=== PATIENT | female | born 1950 | race Caucasian/White ===

== ENCOUNTER 2017-06-28 15:57 | Outpatient (RCR) | payer MEDICARE, OTHER, SELFPAY ==
[2017-06-17 15:01] LABS: Prothrombin Time Fingerstick 42.3 SEC (11.9-14.4)
[2017-06-17 16:53] LABS: International Normalized Ratio 3.1; Prothrombin Time (Protime)PT. 30.5 SECONDS (11.7-14.9)
[2017-06-28 16:11] LABS: Prothrombin Time Fingerstick 26.1 SEC (11.9-14.4)
== END 2017-06-28 16:15 | disposition home or self-care (01) ==
LOC: MTLAB 15:57
PROVIDERS: Family Provider Family Medicine; PCP Family Medicine; Visit Provider Internal Medicine Cardiovascular Disease
DX: I48.0 Paroxysmal atrial fibrillation (principal)
CPT/HCPCS: 36416; 85610

== ENCOUNTER 2017-07-29 15:01 | Outpatient (RCR) | payer MEDICARE, OTHER, SELFPAY ==
[2017-07-29 15:21] LABS: Prothrombin Time Fingerstick 29.2 SEC (11.9-14.4)
== END 2017-07-29 16:00 | disposition home or self-care (01) ==
LOC: MTLAB 15:01
PROVIDERS: Family Provider Family Medicine; PCP Family Medicine; Visit Provider Internal Medicine Cardiovascular Disease
DX: I48.0 Paroxysmal atrial fibrillation (principal)
CPT/HCPCS: 36416; 85610

== ENCOUNTER 2017-09-02 14:44 | Outpatient (RCR) | payer MEDICARE, OTHER, SELFPAY ==
[2017-09-02 15:00] LABS: Prothrombin Time Fingerstick 29.1 SEC (11.9-14.4)
== END 2017-09-02 15:00 | disposition home or self-care (01) ==
LOC: MTLAB 14:44
PROVIDERS: Family Provider Family Medicine; PCP Family Medicine; Visit Provider Internal Medicine Cardiovascular Disease
DX: I48.0 Paroxysmal atrial fibrillation (principal); Z79.01 Long term (current) use of anticoagulants
CPT/HCPCS: 36416; 85610

== ENCOUNTER → 2017-09-16 08:01 | Outpatient (CLI) | payer MEDICARE, OTHER, SELFPAY ==
[2017-09-16 11:10] LABS: AST(SGOT) 24 U/L (15-37); Alanine Aminotransfer ALT/SGPT 23 U/L (13-56); Albumin, Serum 3.3 g/dL (3.2-5.0); Alkaline Phosphatase 55 U/L (45-117); Anion Gap 8 (5-15); BUN 24 mg/dL (7-18); BUN/Creat Ratio 25.5 RATIO (10-20); Bilirubin, Direct 0.09 mg/dL (0.00-0.30); Calcium,Total 8.6 mg/dL (8.5-10.1); Chloride 102 mmol/L (98-107); Cholesterol 116 mg/dL (200); Creatinine, Serum 0.94 mg/dL (0.55-1.02); EST Glomerular Filtration Rate 63 mL/min (>60); Est Glom Filt Rate - Afr Amer 76 mL/min (>60); Globulin 3.5 g/dL (2.2-4.2); Glucose 113 mg/dL (74-106); High Density Lipoprotein 59 mg/dL; Potassium 4.1 mmol/L (3.5-5.1); Protein, Total 6.8 g/dL (6.4-8.2); Sodium Level 139 mmol/L (136-145); Triglycerides 112 mg/dL; Very Low Density Lipoprotein 22 mg/dL (5-40)
== END ==
PROVIDERS: Family Provider Family Medicine; PCP Family Medicine; Visit Provider Internal Medicine Cardiovascular Disease
DX: E78.5 Hyperlipidemia, unspecified (principal); E11.9 Type 2 diabetes mellitus without complications; Z79.899 Other long term (current) drug therapy
CPT/HCPCS: 36415; 80048; 80061; 80076; 83036

== ENCOUNTER 2017-10-20 10:59 | Emergency (ER) | payer MEDICARE, OTHER, SELFPAY ==
[2017-10-20 11:00] VITALS: BP 150/98; PULSE 72; RESP 16; TEMP 36.6; O2SAT 99; BMI 28.3
--- NOTE | 2017-10-20 11:16 | VDLE_ITS ---
Reason For Study: LEG SWELLING RIGHT LEFT GSV is normal. GSV is normal. CFV is compressible, spontaneous, phasic, CFV is compressible, spontaneous, phasic, competent and demonstrates normal competent, and demonstrates normal augmentation. augmentation. FV is compressible, spontaneous, phasic, FV is compressible, spontaneous, phasic, competent and demonstrates normal competent and demonstrates normal augmentation. augmentation. POP V is compressible, spontaneous, phasic, POP V is compressible, spontaneous, phasic, competent and demonstrates normal competent and demonstrates normal augmentation. augmentation. T/P Trunk is compressible. T/P Trunk is compressible. PTV is compressible. PTV is compressible. RT PerV is compressible. LT PerV is compressible. Procedure Exam performed portable in ED. A preliminary report was called and/or faxed to Dr. Live. Interpretation Summary Deep veins of the lower extremities are bilaterally patent and compressible segmentally. There is no evidence of deep vein thrombosis on either side. Valvular competence appears intact within the proximal deep venous systems bilaterally. The greater saphenous veins appear bilaterally patent and compressible segmentally. Ordering Physician: Marimar Live Referring Physician: Will Montanez Performed By: Shelbie Robb RVT
--- NOTE | 2017-10-20 11:26 | ED.VISSUMM ---
- ER Visit Summary Date of Service: 10/20/17 Chief Complaint: [] Left lower extremity redness concern for DVT by physicians History of Present Illness: The patient is a 66 F [] and had what she describes as a cancerous lesion resected from the anterior liz region left lower extremity recently, she was followed up by her manager business management today the area was slightly red and the manager business management sent the patient to the emergency department T piece scan for DVT. The patient reports no fever no cough no trauma no warmth she is not quite sure why the redness is they are it has been there for a few days she has no history of cellulitis infection MRSA she is otherwise feeling fine, she has no history of again any symptoms of any kind her review of systems are all entirely negative and she has not had any history of DVT Patient is supposed to return directly back to the manager business management office today after the duplex scan is done for further therapy Physical Examination: [] Her vitals are within normal range head neck chest unremarkable the lungs are clear heart tones are normal abdomen soft the left liz region there is a circular dot that represents the resected area the entire left lower extremity is nontender there is some slight redness around this circular dot again is no warmth no signs of obvious cellulitis to dorsi and plantar flexion the foot is normal strong dorsalis pedis pulse foot toes all negative Test Results: [] Emergency Department Course and Treatment: [] duplex scan is obtained is unremarkable when results of her duplex scan and she will follow-up with her manager business management today as scheduled above patient's comfort with this plan Treatment Plan: [] Disposition: [] Home stable Impression: [] Redness to left anterior liz 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 It may contain incorrect words, spelling, and punctuation that were not noted in review of the chart prior to signing ED Disposition - Plan for ED Patient: Chief Complaint: Lower Extremity Injury Referrals: Jose Doyle MD [Primary Care Provider] -
--- NOTE | 2017-10-20 11:29 | ED.DCSUM_ITS ---
- ER Visit Summary Date of Service: 10/20/17 Chief Complaint: [] Left lower extremity redness concern for DVT by physicians History of Present Illness: The patient is a 66 F [] and had what she describes as a cancerous lesion resected from the anterior liz region left lower extremity recently, she was followed up by her informatics coordinator today the area was slightly red and the informatics coordinator sent the patient to the emergency department T piece scan for DVT. The patient reports no fever no cough no trauma no warmth she is not quite sure why the redness is they are it has been there for a few days she has no history of cellulitis infection MRSA she is otherwise feeling fine, she has no history of again any symptoms of any kind her review of systems are all entirely negative and she has not had any history of DVT Patient is supposed to return directly back to the informatics coordinator office today after the duplex scan is done for further therapy Physical Examination: [] Her vitals are within normal range head neck chest unremarkable the lungs are clear heart tones are normal abdomen soft the left liz region there is a circular dot that represents the resected area the entire left lower extremity is nontender there is some slight redness around this circular dot again is no warmth no signs of obvious cellulitis to dorsi and plantar flexion the foot is normal strong dorsalis pedis pulse foot toes all negative Test Results: [] Emergency Department Course and Treatment: [] duplex scan is obtained is unremarkable when results of her duplex scan and she will follow-up with her informatics coordinator today as scheduled above patient's comfort with this plan Treatment Plan: [] Disposition: [] Home stable Impression: [] Redness to left anterior liz status post biopsy/resection squamous cell carcinoma by patient history This note was generated with [employer] dictation software. It may contain incorrect words, spelling, and punctuation that were not noted in review of the chart prior to signing ED Disposition - Plan for ED Patient: Chief Complaint: Lower Extremity Injury Referrals: Jose Doyle MD [Primary Care Provider] -
--- NOTE | 2017-10-20 11:30 | DCINST.ED_ITS ---
ED Disposition - Plan for ED Patient: Chief Complaint: Lower Extremity Injury Instructions: ED Contusion Lower Ext Referrals: Jose Doyle MD [Primary Care Provider] - Additional Instructions: Follow-up today as instructed with her hand wrapper operator for further treatment options
== END 2017-10-20 12:50 | disposition home or self-care (01) ==
LOC: ED 12:23
PROVIDERS: Emergency Provider Emergency Medicine; Family Provider Family Medicine; PCP Family Medicine
DX: S80.12XA Contusion of left lower leg, initial encounter (principal); X58.XXXA Exposure to other specified factors, initial encounter; Y93.89 Activity, other specified; Y92.9 Unspecified place or not applicable; Y99.9 Unspecified external cause status; C44.729 Squamous cell carcinoma of skin of left lower limb, including hip
CPT/HCPCS: 93970; 99283

== ENCOUNTER 2017-10-27 11:20 | Outpatient (RCR) | payer MEDICARE, OTHER, SELFPAY ==
[2017-10-14 16:01] LABS: Prothrombin Time Fingerstick 38.4 SEC (11.9-14.4)
[2017-10-21 16:05] LABS: Prothrombin Time Fingerstick 46.1 SEC (11.9-14.4)
[2017-10-21 17:40] LABS: International Normalized Ratio 3.1; Prothrombin Time (Protime)PT. 32.3 SECONDS (11.7-14.9)
[2017-10-27 11:36] LABS: Prothrombin Time Fingerstick 25.1 SEC (11.9-14.4)
== END 2017-10-27 12:00 | disposition home or self-care (01) ==
LOC: MTLAB 11:20
PROVIDERS: Family Provider Family Medicine; PCP Family Medicine; Visit Provider Internal Medicine Cardiovascular Disease
DX: I48.0 Paroxysmal atrial fibrillation (principal)
CPT/HCPCS: 36416; 85610

== ENCOUNTER 2017-11-17 10:07 | Outpatient (RCR) | payer MEDICARE, OTHER, SELFPAY ==
--- NOTE | 2017-11-17 10:07 | DT_ITS ---
This patient was seen during an EMR downtime November 14, 2017 - November 21, 2017. This patient may have a combination of paper and electronic documentation or all paper documentation. All documentation is viewable within the e-chart portion of [facility] for each patient visit.
[2017-11-21 10:40] LABS: Prothrombin Time Fingerstick 32.7 SEC (11.9-14.4)
== END 2017-11-17 11:00 | disposition home or self-care (01) ==
LOC: MTLAB 10:07
PROVIDERS: Family Provider Family Medicine; PCP Family Medicine; Visit Provider Internal Medicine Cardiovascular Disease
DX: I48.0 Paroxysmal atrial fibrillation (principal)
CPT/HCPCS: 36416; 85610

== ENCOUNTER 2018-01-03 09:32 | Outpatient (RCR) | payer MEDICARE, OTHER, SELFPAY ==
[2017-12-15 14:16] LABS: Prothrombin Time Fingerstick 16.6 SEC (11.9-14.4)
[2017-12-22 17:00] LABS: Prothrombin Time Fingerstick 38.9 SEC (11.9-14.4)
[2018-01-03 09:45] LABS: Prothrombin Time Fingerstick 29.4 SEC (11.9-14.4)
== END 2018-01-03 11:00 ==
LOC: MTLAB 09:32
PROVIDERS: Family Provider Family Medicine; PCP Family Medicine; Visit Provider Internal Medicine Cardiovascular Disease
DX: I48.0 Paroxysmal atrial fibrillation (principal)
CPT/HCPCS: 36416; 85610

== ENCOUNTER 2018-01-24 16:17 | Outpatient (RCR) | payer MEDICARE, OTHER, SELFPAY ==
[2018-01-24 16:25] LABS: Prothrombin Time Fingerstick 33.9 SEC (11.9-14.4)
== END 2018-01-24 18:00 | disposition home or self-care (01) ==
LOC: MTLAB 16:17
PROVIDERS: Family Provider Family Medicine; PCP Family Medicine; Visit Provider Internal Medicine Cardiovascular Disease
DX: I48.0 Paroxysmal atrial fibrillation (principal)
CPT/HCPCS: 36416; 85610

== ENCOUNTER 2018-02-23 11:49 | Outpatient (RCR) | payer MEDICARE, OTHER, SELFPAY ==
[2018-02-23 12:10] LABS: Prothrombin Time Fingerstick 27.4 SEC (11.9-14.4)
== END 2018-02-23 13:00 | disposition home or self-care (01) ==
LOC: MTLAB 11:49
PROVIDERS: Family Provider Family Medicine; PCP Family Medicine; Visit Provider Internal Medicine Cardiovascular Disease
DX: I48.0 Paroxysmal atrial fibrillation (principal)
CPT/HCPCS: 36416; 85610

== ENCOUNTER → 2018-03-16 07:39 | Outpatient (CLI) | payer MEDICARE, OTHER, SELFPAY ==
[2018-03-16 10:27] LABS: Anion Gap 7 (5-15); BUN 20 mg/dL (7-18); Calcium,Total 8.9 mg/dL (8.5-10.1); Chloride 102 mmol/L (98-107); Creatinine, Serum 0.95 mg/dL (0.55-1.02); EST Glomerular Filtration Rate 62 mL/min (>60); Est Glom Filt Rate - Afr Amer 75 mL/min (>60); Glucose 123 mg/dL (74-106); Hemoglobin A1c 6.7 % (4.2-6.3); Potassium 4.1 mmol/L (3.5-5.1); Sodium Level 138 mmol/L (136-145)
[2018-03-16 10:29] LABS: AST(SGOT) 22 U/L (15-37); Alanine Aminotransfer ALT/SGPT 22 U/L (13-56); Albumin, Serum 3.3 g/dL (3.2-5.0); Alkaline Phosphatase 59 U/L (45-117); Bilirubin, Direct 0.11 mg/dL (0.00-0.30); Cholesterol 106 mg/dL (200); Globulin 3.6 g/dL (2.2-4.2); High Density Lipoprotein 55 mg/dL; Protein, Total 6.9 g/dL (6.4-8.2); Triglycerides 112 mg/dL; Very Low Density Lipoprotein 22 mg/dL (5-40)
== END ==
PROVIDERS: Nurse Practitioner Family; Family Provider Family Medicine; PCP Family Medicine; Referring Provider Family Medicine; Visit Provider Family Medicine
DX: I10 Essential (primary) hypertension (principal); E11.9 Type 2 diabetes mellitus without complications; E78.5 Hyperlipidemia, unspecified
CPT/HCPCS: 36415; 80048; 80061; 80076; 83036

== ENCOUNTER 2018-03-23 15:58 | Outpatient (RCR) | payer MEDICARE, OTHER, SELFPAY ==
[2018-03-23 16:11] LABS: Prothrombin Time Fingerstick 33.2 SEC (11.9-14.4)
== END 2018-03-23 17:00 | disposition home or self-care (01) ==
LOC: MTLAB 15:58
PROVIDERS: Family Provider Family Medicine; PCP Family Medicine; Referring Provider Internal Medicine Cardiovascular Disease; Visit Provider Internal Medicine Cardiovascular Disease
DX: I48.0 Paroxysmal atrial fibrillation (principal)
CPT/HCPCS: 36416; 85610

== ENCOUNTER 2018-04-24 16:45 | Outpatient (RCR) | payer MEDICARE, OTHER, SELFPAY | END 2018-04-24 17:00 | disposition home or self-care (01) | LOC: MTLAB 16:45 | PROVIDERS: Family Provider Family Medicine; PCP Family Medicine; Referring Provider Internal Medicine Cardiovascular Disease; Visit Provider Internal Medicine Cardiovascular Disease | DX: I48.0 Paroxysmal atrial fibrillation (principal); I48.91 Unspecified atrial fibrillation; Z79.01 Long term (current) use of anticoagulants | CPT/HCPCS: 36416; 85610 ==

== ENCOUNTER → 2018-05-15 14:51 | Outpatient (CLI) | payer MEDICARE, OTHER, SELFPAY ==
[2018-05-02 10:14] VITALS: BMI 27.8
--- NOTE | 2018-05-15 14:53 | ECHOD_ITS ---
Reason For Study: Afib/Flutter Procedure This was a 2D Doppler, Color Flow transthoracic echocardiogram. Exam performed in department. Left Ventricle Normal LV size. Left ventricular systolic function is normal. The estimated ejection fraction is 60 %. Transmitral diastolic flow velocities suggest severe (stage 3) diastolic dysfunction. No regional wall motion abnormalities noted. Right Ventricle Normal RV size. ICD or pacer leads identified within the right ventricle. Normal systolic function. Atria The left atrium is mildly enlarged. Normal right atrium. Mitral Valve Normal mitral valve. Mild (1+) eccentric mitral valve insufficiency. Tricuspid Valve Normal tricuspid valve. Mild (1+) tricuspid valve insufficiency. Pulmonary artery systolic pressure is 45 mmHg. Aortic Valve Normal aortic valve. Trisinus/trileaflet aortic valve. Pulmonic Valve Normal pulmonic valve. Great Vessels Normal aortic root. The pulmonary artery is normal size. Normal inferior vena cava. Pericardium/Pleural No pericardial effusion. MMode/2D Measurements & Calculations LVIDd: 4.7 cm IVSd: 1.1 cm Ao root diam: 3.5 cm LVIDs: 2.7 cm LVPWd: 0.81 cm LA dimension: 3.4 cm RVDd: 3.3 cm FS: 42.3 % LAV(MOD-bp): 61.8 ml LVAd ap4: 20.4 cm2 SV(MOD-sp4): 31.5 ml LAV(MOD-bp) Indexed: 34.5 ml/m2 EDV(MOD-sp4): 54.1 ml LAV(MOD-sp2): 55.2 ml EDV(sp4-el): 56.1 ml LAV(MOD-sp4): 64.9 ml LVAs ap4: 12.0 cm2 ESV(MOD-sp4): 22.6 ml ESV(sp4-el): 22.7 ml EF(MOD-sp4): 58.3 % EF(sp4-el): 59.5 % SV(sp4-el): 33.4 ml LA A4 area: 22.1 cm2 RA A4 area: 14.7 cm2 Time Measurements MV dec time: 0.29 sec Doppler Measurements & Calculations MV E max gregory: 99.8 cm/sec Lat Peak E' Gregory: 6.7 cm/sec MV V2 max: 111.6 cm/sec MV A max gregory: 35.6 cm/sec E/E' lat: 14.9 MV max P.0 mmHg MV E/A: 2.8 MV V2 mean: 64.3 cm/sec MV mean P.0 mmHg MV V2 VTI: 32.8 cm Ao V2 max: 116.5 cm/sec LV V1 max: 84.3 cm/sec MR max gregory: 512.5 cm/sec Ao max P.4 mmHg LV V1 max P.8 mmHg MR max P.1 mmHg PA V2 max: 68.7 cm/sec TR max gregory: 320.3 cm/sec TR max P.0 mmHg Interpretation Summary Normal LV size. Left ventricular systolic function is normal. The estimated ejection fraction is 60 %. Transmitral diastolic flow velocities suggest severe (stage 3) diastolic dysfunction Mild (1+) tricuspid valve insufficiency. Ordering Physician: Will Montanez Referring Physician: Will Montanez Performed By: Malcolm Guillen RCS
== END ==
PROVIDERS: Family Provider Family Medicine; PCP Family Medicine; Referring Provider Internal Medicine Cardiovascular Disease; Visit Provider Internal Medicine Cardiovascular Disease
DX: I07.1 Rheumatic tricuspid insufficiency (principal); I43 Cardiomyopathy in diseases classified elsewhere
CPT/HCPCS: 93306

== ENCOUNTER 2018-06-09 13:43 | Outpatient (RCR) | payer MEDICARE, OTHER, SELFPAY ==
[2018-05-02 10:14] VITALS: BMI 27.8
[2018-05-25 13:56] LABS: Prothrombin Time Fingerstick 37.8 SEC (11.9-14.4)
[2018-06-09 16:44] LABS: International Normalized Ratio 2.6
--- OUTSIDE RECORDS SUMMARY | 2018-07-11 09:48 | XMS RPT_ITS ---
:1950 Author Organization OHIP Support Name Relationship Address Phone [employer] Unavailable [address] + [place] [address] DAILY, M MADALYN Unavailable [address] + [place] [address] [employer] Unavailable [address] + [place] [address] DAILY, M MADALYN Unavailable [address] + [place] [address] [employer] Unavailable [address] + [place] [address] DAILY, M MADALYN Unavailable [address] + [place] [address] [employer] [facility] Unavailable [address] + [place] [address] DAILY, M MADALYN Unavailable [address] + [place] [address] [employer] Unavailable [address] + [place] [address] DAILY, M MADALYN Unavailable [address] + [place] [address] [facility] Unavailable [address] + [place] [address] DAILY, M MADALYN Unavailable [address] + [place] [address] [employer] Unavailable [address] + [place] [address] DAILY, M MADALYN Unavailable [address] + [place] [address] [employer] Unavailable [address] + [facility] [address] DAILY, M MADALYN Unavailable [address] + [place] [address] [employer] Unavailable [address] + [place] [address] DAILY, M MADALYN Unavailable [address] + [place] [address] [facility] Unavailable [address] + [place] [address] DAILY, M MADALYN Unavailable [address] + [place] [address] [employer] Unavailable [address] + [place] [address] DAILY, M MADALYN Unavailable [address] + [place] [address] [employer] [facility] Unavailable [address] + [place] [address] DAILY, M MADALYN Unavailable [address] + [place] [address] [employer] [facility] Unavailable [address] + [place] [address] DAILY, M MADALYN Unavailable [address] + [place] [address] [facility] [facility] Unavailable [address] + [place] [address] DAILY, M MADALYN Unavailable [address] + [place] [address] [facility] Unavailable [address] + [place] [address] DAILY, M MADALYN Unavailable [address] + [place] [address] [facility] [facility] Unavailable [address] + [place] [address] DAILY, M MADALYN Unavailable [address] + [place] [address] [facility] [facility] Unavailable [address] + [place] [address] DAILY, M MADALYN Unavailable [address] + [place] [address] [facility] [facility] Unavailable [address] + [place] [address] DAILY, M MADALYN Unavailable [address] + [place] [address] [facility] [facility] Unavailable [address] + [place] [address] DAILY, M MADALYN Unavailable [address] + [place] [address] [facility] [facility] Unavailable [address] + [place] [address] DAILY, M MADALYN Unavailable [address] + [place] [address] [facility] [facility] Unavailable [address] + [place] [address] DAILY, M MADALYN Unavailable [address] + [place] [address] [facility] [facility] Unavailable [address] + [place] [address] DAILY, M Unavailable [address] + [place] [address] [facility] [facility] Unavailable [address] + [place] [address] DAILY, M MADALYN Unavailable [address] + [place] [address] Care Team Providers Name Role Phone PAULA FRAGA Referring Unavailable PAULA FRAGA Attending Unavailable Gale Nascimento Attending Unavailable Jose Guzman Referring Unavailable Will Montanez Attending Unavailable Will Montanez Referring Unavailable Jose Guzman Primary Care Unavailable Gale Nascimento Attending Unavailable Jose Guzman Referring Unavailable Yaonna Welch Attending Unavailable Guzman, Jose Referring Unavailable Guzman, Jose Primary Care Unavailable Tarik, [place] Attending Unavailable Guzman, Jose Primary Care Unavailable [place], [place] Attending Unavailable Guzman, Jose Referring Unavailable Guzman, Jose Primary Care Unavailable [place], [place] Attending Unavailable Guzman, Joes Primary Care Unavailable Tarik, Will Referring Unavailable Tarik, Will Attending Unavailable Tarik, Will Referring Unavailable Guzman, Jose Primary Care Unavailable [place], [place] Attending Unavailable Tarik, Will Referring Unavailable Guzman, Jose Primary Care Unavailable Guzman, Jose Primary Care Unavailable Dulce Live Attending Unavailable Tar[place], [place] Attending Unavailable Tarik, [place] Referring Unavailable Guzman, Jose Primary Care Unavailable AzamGale giraldo Attending Unavailable Gumzan, Jose Referring Unavailable Guzman, Jose Primary Care Unavailable Tarik, Will Attending Unavailable Tarik, Will Referring Unavailable Guzman, Jose Primary Care Unavailable Tarik, Will Attending Unavailable Tarik, Will Referring Unavailable Guzman, Jose Primary Care Unavailable Tarik, [place] Attending Unavailable Tarik, [place] Referring Unavailable Guzman, Jose Primary Care Unavailable AzamGale giraldo Attending Unavailable Guzman, Jose Referring Unavailable Tarik, [place] Attending Unavailable Tarik, [place] Referring Unavailable Guzman, Jose Primary Care Unavailable Guzman, Jose Attending Unavailable Guzman, Jose Referring Unavailable Guzman, Jose Primary Care Unavailable Roof, Jose H Consulting Unavailable Tarik, [place] Attending Unavailable Tarik, [place] Referring Unavailable Guzman, Jose Primary Care Unavailable Tarik, Will Attending Unavailable Guzman, Jose Referring Unavailable Tarik, [place] Attending Unavailable Tarik, Will Referring Unavailable Guzman, Jose Primary Care Unavailable Tarik, Will Attending Unavailable Tarik, [place] Referring Unavailable Guzman, Jose Primary Care Unavailable Tarik, [place] Consulting Unavailable Tarik, [place] Attending Unavailable Tarik, [place] Referring Unavailable Guzman, Jose Primary Care Unavailable PROBLEMS PROBLEMS DATE TYPE CONDITION / CODE ATTENDING STATUS SOURCE 06/16/2018 Unknown Z95.0 - Presence of Gale Nascimento cardiac pacemaker / Community Z95.0(ICD-10) Hospital Repository 06/16/2018 Unknown I48.0 - Paroxysmal Gale Nascimento Active [place] atrial fibrillation / Community I48.0(ICD-10) Hospital Repository 06/16/2018 Unknown I47.1 - Gale Nascimento Active [facility] [place] Supraventricular Community tachycardia / Hospital I47.1(ICD-10) Repository 06/16/2018 Unknown I48.92 - Unspecified Gale Nascimento Active [facility] atrial flutter / Community I48.92(ICD-10) Hospital Repository 06/16/2018 Unknown I51.9 - Heart disease, Gale Nascimento Active [facility] unspecified / Community I51.9(ICD-10) Hospital Repository 06/16/2018 Unknown I43 - Cardiomyopathy Gale Nascimento Active [place] in diseases classified Community elsewhere / Hospital I43(ICD-10) Repository 06/12/2018 Unknown I48.91 - Unspecified Tarik, [place] Active [facility] [place] atrial fibrillation / Community I48.91(ICD-10) Hospital Repository 06/12/2018 Unknown 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, [place]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 [facility] (current) use of Community anticoagulants / Hospital Z79.01(ICD-10) Repository 05/02/2018 Unknown I10 - Essential Tarik, Will Active [place] (primary) hypertension Community / I10(ICD-10) Hospital Repository 05/02/2018 Unknown E78.00 - Pure [place]ik, Will Active [facility] hypercholesterolemia, Community unspecified / Hospital E78.00(ICD-10) Repository 01/03/2018 Active Unknown / UNK(Unknown) [place] Active [place] [facility], [facility] Repository 09/16/2017 Unknown Z79.899 - Other long Tarik, [place] Active [facility] term (current) drug Community therapy / Hospital Z79.899(ICD-10) Repository 09/16/2017 Unknown E78.5 - Tarik, [place] Active [place] Hyperlipidemia, Community unspecified / Hospital E78.5(ICD-10) Repository 09/13/2017 Active Encounter for NA Active [place] screening mammogram [facility] for malignant neoplasm [place] of breast / Repository Z12.31(ICD-10) PROCEDURES PROCEDURES No Procedure Records FoundRESULTS RESULTS PACEMAKER CHECK Observed: 06/15/2018 Status: F Source: [place] 11:32 AM [facility] REPOSITORY [facility] [address] [place], [place] [address]col[address]. [address] [place] [address] Pacemaker Check Date of Service: 06/15/18 1123 MR#: [id number] Acct: [id number] Name: EFREN HESS Rep #: [id number] : 1950 From: Gale Nascimento Age/Sex: 67/F Location: [facility] Status: Signed Billing Codes PM Device Codes: PM Dev Prog Eval, Multi 06/15/18 1125 <Electronically signed by Gale Nascimento > Date Gale Nascimento 06/15/18 1132<Electronically signed by Yoanna CEDEÑO> Cosigner Signature: Date (if applicable) [place] Welch CC: PROTHROMBIN TIME W/INR Collected: 06/09/2018 Status: F Source: [place] 1:54 PM [facility] REPOSITORY Order Comment: Comments: STANDING ORDER Comments: STANDING ORDER TYPE CODE TESTS RESULT OUT OF RANGE REFERENCE UNITS LAB L300.4150 11.7-14.9 SECONDS High PROTIME 28.0 LAB L300.4200 Normal INR 2.6 Performed By: #### L300.3900 #### [facility] [place], [address] PROTIME W/INR Collected: 05/25/2018 Status: F Source: [place] 1:53 PM [facility] REPOSITORY TYPE CODE TESTS RESULT OUT OF REFERENCE UNITS RANGE LAB L9200.1001 11.9-14.4 SEC High PROTIME ISTAT 37.8 Result Comment: Reference Range 11.9 - 14.4 LAB L9200.2000 Normal INR ISTAT 3.30 Result Comment: Critical Value > 3.5 Performed By: #### L9200.0000 #### [facility] Point [facility] [address] [place] [address] ECHOCARDIOGRAM COMPLETE Observed: 05/15/2018 Status: F Source: [place] 6:08 PM [facility] REPOSITORY [facility] Cardiovascular Services [address] [place] [address] Echo Complete 05/15/18 1451 MR#: [id number] Acct: [id number] Name: EFREN HESS Rep #: [id number] : 1950 67 From: Will Montanez MD Attending Dr: Will Montanez MD Status: REG CLI Ordering Dr: Will Montanez MD Date: 05/15/18 Location: [facility] Sex: F C Admitted: Reason For Study: Afib/Flutter Procedure This was a 2D Doppler, Color Flow transthoracic echocardiogram. Exam performed in department. Left Ventricle Normal LV size. Left ventricular systolic function is normal. The estimated ejection fraction is 60 %. Transmitral diastolic flow velocities suggest severe (stage 3) diastolic dysfunction. No regional wall motion abnormalities noted. Right Ventricle Normal RV size. ICD or pacer leads identified within the right ventricle. Normal systolic function. Atria The left atrium is mildly enlarged. Normal right atrium. Mitral Valve Normal mitral valve. Mild (1+) eccentric mitral valve insufficiency. Tricuspid Valve Normal tricuspid valve. Mild (1+) tricuspid valve insufficiency. Pulmonary artery systolic pressure is 45 mmHg. Aortic Valve Normal aortic valve. Trisinus/trileaflet aortic valve. Pulmonic Valve Normal pulmonic valve. Great Vessels Normal aortic root. The pulmonary artery is normal size. Normal inferior vena cava. Pericardium/Pleural No pericardial effusion. MMode/2D Measurements AND Calculations LVIDd: 4.7 cm IVSd: 1.1 cm Ao root diam: 3.5 cm LVIDs: 2.7 cm LVPWd: 0.81 cm LA dimension: 3.4 cm RVDd: 3.3 cm FS: 42.3 % LAV(MOD-bp): 61.8 ml LVAd ap4: 20.4 cm2 SV(MOD-sp4): 31.5 ml LAV(MOD-bp) Indexed: 34.5 ml/m2 EDV(MOD-sp4): 54.1 ml LAV(MOD-sp2): 55.2 ml EDV(sp4-el): 56.1 ml LAV(MOD-sp4): 64.9 ml LVAs ap4: 12.0 cm2 ESV(MOD-sp4): 22.6 ml ESV(sp4-el): 22.7 ml EF(MOD-sp4): 58.3 % EF(sp4-el): 59.5 % SV(sp4-el): 33.4 ml LA A4 area: 22.1 cm2 RA A4 area: 14.7 cm2 Time Measurements MV dec time: 0.29 sec Doppler Measurements AND Calculations MV E max gregory: 99.8 cm/sec Lat Peak E' Gregory: 6.7 cm/sec MV V2 max: 111.6 cm/sec MV A max gregory: 35.6 cm/sec E/E' lat: 14.9 MV max P.0 mmHg MV E/A: 2.8 MV V2 mean: 64.3 cm/sec MV mean P.0 mmHg MV V2 VTI: 32.8 cm Ao V2 max: 116.5 cm/sec LV V1 max: 84.3 cm/sec MR max gregory: 512.5 cm/sec Ao max P.4 mmHg LV V1 max P.8 mmHg MR max P.1 mmHg PA V2 max: 68.7 cm/sec TR max gregory: 320.3 cm/sec TR max P.0 mmHg Interpretation Summary Normal LV size. Left ventricular systolic function is normal. The estimated ejection fraction is 60 %. Transmitral diastolic flow velocities suggest severe (stage 3) diastolic dysfunction Mild (1+) tricuspid valve insufficiency. Ordering Physician: Will Montanez Referring Physician: Will Montanez Performed By: Malcolm Guillen RCS 05/15/18 180 Date Will Montanez MD CC: Will Montanez MD; Jose Guzman MD Date Dictated: 05/15/18 1451 Date Transcribed: 05/15/181807 Senior Quality Technician: Signed CARDIOLOGY VISIT Observed: 05/02/2018 Status: F Source: [place] REPORT 10:53 AM [facility] REPOSITORY [facility] [address] [place] [address]. [address] [place] [address] OFFICE VISIT Date of Service: 05/02/18 MR#: [id number] Acct: [id number] Name: EFREN HESS Rep #: [id number] : 1950 Provider: Will Montanez MD Age/Sex: 67/F Location: [facility] Status: Signed HPI [facility] Chief Complaint: Follow up visit Details: EFREN AMBROSIO, is a 67 F who presents to the office today for a cardiovascular followup. She has a history of atrial fibrillation/flutter post right-sided ablation with repeat ablation in 2009. She also has a history of hypertension and diabetes. She had a pacemaker placed with LENS DOTTER due to a low ejection fraction. Echocardiogram in 2010 demonstrated preserved ejection fraction of 55%. Bi-V pacemaker interrogation today demonstrates that is functioning appropriately. From a cardiac standpoint, patient is doing well. She does not have any chest discomfort/heaviness/tightness. Her exercise tolerance is stable for her age. She does not have any worsening symptoms of shortness of breath. She does not have any orthopnea. She denies PND. She does not have any symptoms of congestive heart failure. She does not have any palpitations that she is aware of. She does not have any lightheadedness or dizziness. She does not have any near-syncope or syncope. She does not have any lower extremity edema. She does not have any symptoms of claudication. Her physical exam demonstrates clear lung farooq regular rate and rhythm and no pedal edema. She does have mild varicosities noted. Intake Vital Signs05/02/18 Height 5 ft 4 in 05/02/18 Weight: 162 lb 05/02/18 Body Mass Index (BMI) 27.8 05/02/18 Blood Pressure 138/86 H H 05/02/18 Blood Pressure Location Lt brachial Intake Visit Reasons: 9 M [place] [employer] Required: No Accompanied by: none Is patient in pain?: No Allergies esomeprazole [From Nexium] Adverse Reaction (Severe, Verified 05/02/18 10:16) Hives meperidine [From Demerol] Adverse Reaction (Severe, Verified 05/02/18 10:16) Unknown povidone-iodine [From Betadine] Adverse Reaction (Severe, Verified 05/02/18 10:16) Unknown soap [From Betadine] Adverse Reaction (Severe, Verified 05/02/18 10:16) Unknown acetaminophen [From Darvocet-N] Adverse Reaction (Intermediate, Verified 05/02/18 10:16) Unknown propoxyphene [From Darvocet-N] Adverse Reaction (Intermediate, Verified 05/02/18 10:16) Unknown hydrocodone [From Vicodin] Adverse Reaction (Mild, Verified 05/02/18 10:16) Nausea, headache oxycodone [From Percocet] Adverse Reaction (Mild, Verified 05/02/18 10:16) Nausea Medications acetaminophen 500 mg tablet 500 mg PO .Take As Directed tab 07/07/17 [History Confirmed 05/02/18] aspirin 81 mg tablet,delayed release 81 mg PO QDAY 07/07/17 [History Confirmed 05/02/18] hydrochlorothiazide 50 mg tablet 50 mg PO QDAY 07/07/17 [History Confirmed 05/02/18] metformin 500 mg tablet See Rx Instructions PO BID 07/07/17 [History Confirmed 05/02/18] pioglitazone 45 mg tablet 45 mg PO QDAY 07/07/17 [History Confirmed 05/02/18] simvastatin 20 mg tablet 20 mg PO QHS #90 tab 07/13/17 [Rx Confirmed 05/02/18] sotalol 160 mg tablet 160 mg PO BID #180 tab 07/13/17 [Rx Confirmed 05/02/18] cinnamon bark 500 mg capsule mg PO 07/28/17 [History Confirmed 05/02/18] glucosamine 750 uf-[id number]-[id number] no1 644 mg-C 30 mg-nia 1 mg tablet tab PO 07/28/17 [History Confirmed 05/02/18] magnesium oxide 400 mg capsule 400 mg PO QDAY cap 07/28/17 [History Confirmed 05/02/18] multivitamin tablet 1 tab PO QAM 07/28/17 [History Confirmed 05/02/18] warfarin 1 mg tablet PO 90 Days #45 07/28/17 [History Confirmed 05/02/18] losartan 100 mg tablet 100 mg PO QDAY #90 tab 12/22/17 [Rx Confirmed 05/02/18] warfarin 3 mg tablet 3 mg PO QDAY #90 tab 03/14/18 [Rx Confirmed 05/02/18] [facility] Medical History Cardiomyopathy in other diseases classified elsewhere (Resolved) 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) Hyperlipidemia (Chronic) Hypertension (Chronic) Atrial flutter (Chronic) Supraventricular tachycardia (Chronic) Syncope and collapse (Chronic) Atrial fibrillation (Chronic) Surgical History Cardiac pacemaker in situ (Chronic) Family History Father Hypertension Renal failure Mother Diabetes Hypertension HLD (hyperlipidemia) Lupus MVP (mitral valve prolapse) Brother Cancer Spine Cancer Sister Hypertension GERD (gastroesophageal reflux disease) Social History Smoking Status: Never smoker alcohol intake: current Alcohol type: hard liquor substance use type: does not use seatbelt use: always ROS Const Const: Negative for fatigue, weakness, night sweats, excessive sweating, frequent falls, headache(s) or daytime sleepiness Eyes Eyes: Negative for loss of peripheral vision, transient loss of vision, blind spots, double vision or blurry vision ENT ENT: Negative for headache(s), dizziness, balance problems, Nosebleed/epistaxis, tongue swelling or lip swelling Cardio Chest Pain: No Palpitations: No Edema: None Muscle aches with walking: None Resp Respiratory: Negative for SOB at rest, SOB orthopnea\SOB lying down, Cough, paroxysmal nocturnal dyspnea or SOB with activity GI GI: Negative nausea, vomiting, heartburn, black,tarry stools or bright, red blood in stools : Negative for hematuria Musc Musc: Negative for balance problems, muscle aches/ myalgia, muscle weakness or joint pain Skin Skin: Negative non-healing lesions, unusual bruising or rash Neuro Neuro: Negative for weakness, frequent falls, headache(s), double vision, dizziness, lightheadedness, orthostatic symptoms, blurry vision or lack of coordination Oseas Hematologic/Lymphatic: Negative for easy bruising or easy bleeding Endo Endo: Negative for fatigue, excessive sweating, cold intolerance, heat intolerance, increased thirst/drinking or hair loss Psych Psych: Negative for anxiety or depression Allergy Allergy/Immunology: Negative for throat swelling, Negative for tongue swelling, Negative for hives, Negative for rash, Negative for lip swelling Cardiology Exam Const Appearance: cooperative, healthy appearing, well developed, well groomed and no acute distress Nutritional Appearance: well nourished and average body habitus Orientation: alert, awake and oriented x3 Head Head: normal to inspection, normocephalic and atraumatic Ears: hearing grossly normal bilaterally and external ears normal Nose: external nose normal, nasal mucous membranes and turbinates normal, nares normal, septum normal, no nasal discharge Face and Sinus: face symmetric Mouth: oral mucosae normal, tongue normal, oropharynx normal and moist mucous membranes Teeth and gingiva: dentition normal Throat: posterior oropharynx normal, tonsils normal and uvula midline Eyes General: appearance normal, both eyes and all related structures Eyelids: eyelids normal Conjunctivae: conjunctivae normal Pupils: PERRL, normal by confrontation and accommodation normal EOM: EOM intact bilaterally Neck Neck: normal visual inspection, trachea midline and no JVD JVD: +5 Carotids: normal carotid upstroke and bounding pulses Chest Chest inspection: normal inspection of the chest, symmetric chest movement and normal respiratory effort Auscultation: Bilateral: Clear to Auscultation Cardio Palpation: normal PMI Rate: regular rate Rhythm: regular rhythm Heart sounds: S1 normal, S2 normal and normal, physiologic split S2; negative rub, gallop or murmur GI GI: normal to inspection, soft, no hepatosplenomegaly and bowel sounds present Neuro General: alert, awake, oriented x3, no focal sensory deficit, gait normal and moves all extremities Skin Skin: no rashes or lesions noted Extremities Pulses: Normal: Right Femoral Pulse, Left Femoral Pulse, Right Dorsalis Pedis Pulse, Left Dorsalis Pedis Pulse, Right Posterior Tibial Pulse, Left Posterior Tibial Pulse, Right Radial Pulse, Left Radial Pulse Lower Extremity Edema: None: Bilateral Mild varicose veins. Musculoskel Musculoskeletal: No joint tenderness Psych Psychological: normal affect Assessment AND Plan 1. Cardiac pacemaker in situ Z95.0 11/14/2010, Biventricular pacemaker placed Plan She is status post biventricular pacemaker implantation. Her pacemaker interrogation here in the office has been going satisfactorily. She has a battery longevity of approximately a year. We will continue to follow the above in our pacemaker clinic. 2. Atrial flutter I48.92 Plan She has a history of atrial tachyarrhythmia status post ablation. She is on anticoagulation as well as sotalol maintaining an INR of 2-3. No changes will be made with respect to the above. A discussion as to whether she should be changed to a factor X inhibitor would be considered. Orders Orders: 3. Hypertension I10 Plan She does have a history of hypertension her blood pressure appears to be under good control on the hydrochlorothiazide the losartan as well as the sotalol. We will continue to monitor this closely. 4. Cardiomyopathy in other diseases classified elsewhere I43 Plan She does have a history of a cardiomyopathy. She has not had a repeat echocardiogram recently my recommendation would be to repeat this to's make sure that her ejection fraction has improved. Thank you for allowing me to participate in her care. Orders Orders: 5. Pure hypercholesterolemia E78.00 Plan Detail Other Orders Orders: Follow Up 6 Months (mmm) Coding Level of Care Code Off vis,est,level 4 Diagnoses Cardiac pacemaker in situ Z95.0 Atrial flutter I48.92 Hypertension I10 Cardiomyopathy in other diseases classified elsewhere I43 Pure hypercholesterolemia E78.00 Hyperlipidemia type: pure hypercholesterolemia Coding Level of Care Code Off vis,est,level 4 Diagnoses Cardiac pacemaker in situ Z95.0 Atrial flutter I48.92 Hypertension I10 Cardiomyopathy in other diseases classified elsewhere I43 Pure hypercholesterolemia E78.00 Hyperlipidemia type: pure hypercholesterolemia 05/02/18 1053 <Electronically signed by Will Montanez MD> Date Will Montanez MD Cosigner Signature: Date (if applicable) CC: Jose Guzman MD 12 LEAD EKG PERFORMED Observed: 05/02/2018 Status: F Source: [place] BY [facility] 10:18 AM [address] [place] [address] 12 Lead EKG performed by [facility] 05/02/18 1018 MR#: [id number] Acct: [id number] Name: EFREN HESS Rep #: [id number] : 1950 67 From: Will Montanez MD Attending Dr: Will Montanez MD Status: DEP AMB Ordering Dr: Will Montanez MD Date: 05/02/18 Location: [facility] Sex: F C Admitted: [facility]/12 Lead EKG performed by [facility] ECG Report Interpretation Electronic ventricular pacemaker Pacemaker ECG, No further analysis INSUFFICIENT DATAElectronically signed on 05/17/2018 at 11:37 by Will Montanez Software Version [id number] 05/17/18 1146 Date Will Montanez MD CC: Jose Guzman MD Date Dictated: 05/02/18 1018 Date Transcribed: 05/02/181017 Senior Quality Technician: [place] Signed PROTIME W/INR Collected: 04/24/2018 Status: F Source: [place] 4:55 PM [facility] REPOSITORY TYPE CODE TESTS RESULT OUT OF REFERENCE UNITS RANGE LAB L9200.1001 11.9-14.4 SEC High PROTIME ISTAT 27.0 Result Comment: Reference Range 11.9 - 14.4 LAB L9200.2000 Normal INR ISTAT 2.30 Result Comment: Critical Value > 3.5 Performed By: #### L9200.0000 #### [facility] [address] [place], [place] [address] PROTIME W/INR Collected: 03/23/2018 Status: F Source: [place] F[place]ER[place] 4:05 PM [facility] REPOSITORY TYPE CODE TESTS RESULT OUT OF REFERENCE UNITS RANGE LAB L9200.1001 11.9-14.4 SEC High PROTIME ISTAT 33.2 Result Comment: Reference Range 11.9 - 14.4 LAB L9200.2000 Normal INR ISTAT 2.90 Result Comment: Critical Value > 3.5 Performed By: #### L9200.0000 #### [facility] [address] [place] [address] BASIC METABOLIC Collected: 03/16/2018 Status: F Source: [place]AN[place] PROFILE (BMP) 7:54 AM [facility] REPOSITORY Order Comment: Order Date: 09/20/17 Order Info: [id number] - BMP TYPE CODE TESTS RESULT OUT OF RANGE REFERENCE UNITS LAB L501.0100 74-106 mg/dL High GLU 123 Result Comment: Fasting Glucose result from 100 to 125 mg/dL suggests IMPAIRED HOMEOSTASIS per A.D.A. criteria. Please note revised GLUCOSE reference range effective 2017. LAB L501.1000 7-18 mg/dL High BUN 20 LAB L501.1100 0.55-1.02 mg/dL Normal CREAT,SERUM 0.95 Result Comment: The validity of the calculated GFR AND GFRAA in patients over 70 years has not been determined. Clinical correlation is essential. LAB L501.1110 >60 mL/min Normal EST GFR 62 Result Comment: Non- GFR Calc LAB L501.1115 >60 mL/min Normal EST GFR - AA 75 Result Comment: GFR Calc LAB L501.1300 10-20 RATIO High BUN/CRE 21.0 LAB L501.2200 8.5-10.1 mg/dL CA Normal 8.9 LAB L501.5300 136-145 mmol/L NA Normal 138 LAB L501.5600 3.5-5.1 mmol/L K Normal 4.1 LAB L501.5900 98-107 mmol/L CL Normal 102 LAB L501.6100 21.0-32.0 mmol/L Normal CO2 29.0 LAB L501.6200 5-15 Normal GAP 7 Performed By: #### L500.2500, L501.9985 #### [facility] [address] [place], [place], [id number] HEMOGLOBIN A1C Collected: 03/16/2018 Status: F Source: [place] 7:54 AM [facility] REPOSITORY Order Comment: Order Date: 09/20/17 Order Info: 4548-4 - A1C TYPE CODE TESTS RESULT OUT OF RANGE REFERENCE UNITS LAB L501.9985 4.2-6.3 % High HGB A1C 6.7 Performed By: #### L500.2500, L501.9985 #### [facility] [address] [place], [place], [address] LIVER PROFILE Collected: 03/16/2018 Status: F Source: [place] 7:54 AM [facility] REPOSITORY TYPE CODE TESTS RESULT OUT OF RANGE REFERENCE UNITS LAB L501.1500 6.4-8.2 g/dL Normal T PROT 6.9 LAB L501.1800 3.2-5.0 g/dL Normal ALB 3.3 LAB L501.1950 2.2-4.2 g/dL Normal GLOB 3.6 LAB L501.4100 15-37 U/L Normal AST 22 LAB L501.4305 45-117 U/L Normal ALK P 59 LAB L501.4405 13-56 U/L Normal ALT 22 LAB L501.4600 0.20-1.00 mg/dL Normal T BILI 0.30 LAB L501.4700 0.00-0.30 mg/dL Normal D BILI 0.11 Performed By: #### L500.3400, L500.4100 #### [facility] [address] [place], [place], [id number] LIPID PROFILE Collected: 03/16/2018 Status: F Source: [place] 7:54 AM [facility] REPOSITORY TYPE CODE TESTS RESULT OUT OF RANGE REFERENCE UNITS LAB L501.4900 200 mg/dL Normal CHOL 106 Result Comment: <200 mg/dL Desirable 200-240 mg/dL Borderline >240 mg/dL High Risk LAB L501.5000 mg/dL Normal TRIG 112 Result Comment: The drugs N-Acetylcysteine and Metamizole may falsely depress this assay. Serum Triglycerides Reference Interval Normal <150 mg/dL Borderline high 150 - 199 mg/dL High 200 - 499 mg/dL Very High > or = 500 mg/dL LAB L501.6400 mg/dL Normal HDL 55 Result Comment: The drugs N-Acetylcysteine and Metamizole may falsely depress this assay. Reference Range HDL <40 mg/dL Low HDL Cholesterol HDL >or= 60 mg/dL High HDL Cholesterol LAB L501.6500 0-130 mg/dL Normal LDL 29 LAB L501.6600 5-40 mg/dL Normal VLDL 22 Performed By: #### L500.3400, L500.4100 #### [facility] [address] [place], [place], [address] PACEMAKER CHECK Observed: 03/13/2018 Status: F Source: [place] 7:29 AM [facility] REPOSITORY [facility] [place], [place] [address] Pacemaker Check Date of Service: 03/09/181958 MR#: [id number] Acct: [id number] Name: EFREN HESS Rep #: [id number] : 1950 From: Gale Nascimento Age/Sex: 67/F Location: [facility] Status: Signed Billing Codes PM Device Codes: PM Dev Prog Eval, Multi 03/09/182001 <Electronically signed by Gale Nascimento > Date Gale Nascimento 03/13/1829<Electronically signed by Will Montanez MD> Cosigner Signature: Date (if applicable) Will Montanez MD CC: PROTIME W/INR Collected: 02/23/2018 Status: F Source: [place] 12:05 PM [facility] REPOSITORY TYPE CODE TESTS RESULT OUT OF REFERENCE UNITS RANGE LAB L9200.1001 11.9-14.4 SEC High PROTIME ISTAT 27.4 Result Comment: Reference Range 11.9 - 14.4 LAB L9200.2000 Normal INR ISTAT 2.40 Result Comment: Critical Value > 3.5 Performed By: #### L9200.0000 #### [facility] [address] [place], [place] [address] PROTIME W/INR Collected: 01/24/2018 Status: F Source: [place] 4:22 PM [facility] REPOSITORY TYPE CODE TESTS RESULT OUT OF REFERENCE UNITS RANGE LAB L9200.1001 11.9-14.4 SEC High PROTIME ISTAT 33.9 Result Comment: Reference Range 11.9 - 14.4 LAB L9200.2000 Normal INR ISTAT 3.00 Result Comment: Critical Value > 3.5 Performed By: #### L9200.0000 #### [facility] [address] [place] [place] [address] PROGRESS Observed: 01/03/2018 Status: COMPLETED Source: [place] 9:42 AM [facility] [place] REPOSITORY [facility] ID: [id number] Author: Paula Peraza Service: (none) Author Type: Physician Type: Progress Notes Filed: 01/03/2018 9:56 AM Note Text: Efren Ambrosio is a 67 year old who presents for her annual gynecologic exam without complaints. Planning trip to [place] next year. Retired but does do some work for [email or web address]. Has three grand children ages 13/13/20 Postmenopausal: Yes HRT use: Yes, vaginal E but recently stopped . History of abnormal pap: No Last mammogram: 2017 normal History of abnormal mammogram: No Sexually active: no History of STDS: None Patient concerns for STD exposure: No. Hot flashes: No Night sweats: No Vaginal dryness: No Exercise: active Diet: balanced Obstetric History T0 L0 SAB0 TAB0 Ectopic0 Multiple0 Live Births0 PAST MEDICAL HISTORY Diagnosis Date - Atrial fibrillation (HCC) - Diverticulosis of colon (without mention of hemorrhage) - Essential hypertension, benign - Gastric ulcer cured per pt no longer on meds - Internal hemorrhoids without mention of complication - Type I (juvenile type) diabetes mellitus without mention of complication, uncontrolled moderate glucose intolerance PAST SURGICAL HISTORY Procedure Laterality Date - CARDIOVERSION 03/21, 04/21, 06-22-10, [facility] Dr. Montanez - COLONOSCOP W/ OR W/O BRSH SPEC 08/11/10 - DANDC, DIAG AND/OR THERAPEUTIC X2 - EGD W/O OR W/BRUSH/WASH 03/03/2009 EGD - LEG VEIN LEFT - LIGATE FALLOPIAN TUBE - PAST SURGICAL HISTORY OF 12/19, 07/23 cardiac abliation - PAST SURGICAL HISTORY OF 12/18 cardiac abliation - PAST SURGICAL HISTORY OF pacemaker 11/2010 - REJI W/WO REMOVAL TUBE OVARY reji and bso - TOTAL ABDOM HYSTERECTOMY with BSO FAMILY HISTORY Problem Relation Age of Onset - Hypertension Mother diabetes - Hypertension Father - Cancer Brother SOCIAL HISTORY Social History Substance Use Topics - Smoking status: Never Smoker - Smokeless tobacco: Never Used - Alcohol use Yes Comment: rarely REVIEW OF SYSTEMS Abdomen: No abdominal pain, nausea, vomiting, diarrhea, or constipation. No bloating, early satiety, indigestion, or increased flatulence. Bladder: No dysuria, gross hematuria, urinary frequency, urinary urgency, or incontinence Breast: No breast lumps, nipple d/c, overlying skin changes, redness or skin retraction Allergies and current medication updated:Yes EXAM: BP 126/72 Ht 5' 4 (1.63m) Wt 164 lb (74.4kg) BMI 28.14 kg/(m2). GENERAL: pleasant, female in no apparent distress HEENT: Normocephalic, atraumatic, mucus membranes moist and no lesions NECK: Supple, full range of motion, no adenopathy and thyroid normal DERMATOLOGY: Normal, without lesions, non-icteric and non-hirsute BREAST: soft, non-tender, symmetric, no dominant mass, normal nipple-areolar complex, no lymphadenopathy and no nipple discharge ABDOMEN: soft, non-tender and no masses PELVIC: external genitalia normal, normal Bartholin's glands, urethra, Ridgewood's glands, no vulvar lesions, good vaginal support, physiologic discharge present, normal appearing perineal body and perianal region, atrophic changes BIMANUAL: no adnexal masses, non-tender and uterus surgically absent RECTOVAGINAL: deferred. NEURO: alert and oriented x3,exam grossly non-focal EXTREMITIES: normal ASSESSMENT/PLAN: 1) Health maintenance: Pap/HPV screening no longer needed Mammogram ordered Mammogram up to date Nutrition, exercise and routine health maintenance exams reviewed. Calcium/Vitamin D supplementation information provided. Colon cancer screening: up to date with screening BMD: up to date 2) Follow up one year or sooner as needed Paula Villatoro MD PROTIME W/INR Collected: 01/03/2018 Status: F Source: [place] FINGER[place]ICK 9:38 AM [facility] REPOSITORY TYPE CODE TESTS RESULT OUT OF REFERENCE UNITS RANGE LAB L9200.1001 11.9-14.4 SEC High PROTIME ISTAT 29.4 Result Comment: Reference Range 11.9 - 14.4 LAB L9200.2000 Normal INR ISTAT 2.60 Result Comment: Critical Value > 3.5 Performed By: #### L9200.0000 #### [facility] Point [facility] [place] [address] CNOV Observed: 01/03/2018 Status: COMPLETED Source: [place] 9:[address] [facility] REPOSITORY Office Visit (WOOB) MARTÍN AMBROSIOEFREN Campos ([id number]) 1950 F Date Time Provider Department 01/03/18 9:00 AM PAULA FRAGA During your visit today, we recorded the following information about you: Blood pressure Weight Height 126/72 74.4 kg 1.626 m Michelle Elmer Garibay Ma 01/03/2018 9:56 AM Signed Wrap Yarn Sorter offered: Patient declines. Paula Villatoro MD 01/03/2018 9:56 AM Signed Efren Resendiz Daily is a 67 year old who presents for her annual gynecologic exam without complaints. Planning trip to [place] next year. Retired but does do some work for [email or web address]. Has three grand children ages 13/13/20 Postmenopausal: Yes HRT use: Yes, vaginal E but recently stopped . History of abnormal pap: No Last mammogram: 2017 normal History of abnormal mammogram: No Sexually active: no History of STDS: None Patient concerns for STD exposure: No. Hot flashes: No Night sweats: No Vaginal dryness: No Exercise: active Diet: balanced Obstetric History T0 L0 SAB0 TAB0 Ectopic0 Multiple0 Live Births0 PAST MEDICAL HISTORY Diagnosis Date - Atrial fibrillation (HCC) - Diverticulosis of colon (without mention of hemorrhage) - Essential hypertension, benign - Gastric ulcer cured per pt no longer on meds - Internal hemorrhoids without mention of complication - Type I (juvenile type) diabetes mellitus without mention of complication, uncontrolled moderate glucose intolerance PAST SURGICAL HISTORY Procedure Laterality Date - CARDIOVERSION 03/21, 04/21, 06-22-10, [facility] Dr. Montanez - COLONOSCOP W/ OR W/O BRSH SPEC 08/11/10 - DANDC, DIAG AND/OR THERAPEUTIC X2 - EGD W/O OR W/BRUSH/WASH 03/03/2009 EGD - LEG VEIN LEFT - LIGATE FALLOPIAN TUBE - PAST SURGICAL HISTORY OF 12/19, 07/23 cardiac abliation - PAST SURGICAL HISTORY OF 12/18 cardiac abliation - PAST SURGICAL HISTORY OF pacemaker 11/2010 - REJI W/WO REMOVAL TUBE OVARY reji and bso - TOTAL ABDOM HYSTERECTOMY with BSO FAMILY HISTORY Problem Relation Age of Onset - Hypertension Mother diabetes - Hypertension Father - Cancer Brother SOCIAL HISTORY Social History Substance Use Topics - Smoking status: Never Smoker - Smokeless tobacco: Never Used - Alcohol use Yes Comment: rarely REVIEW OF SYSTEMS Abdomen: No abdominal pain, nausea, vomiting, diarrhea, or constipation. No bloating, early satiety, indigestion, or increased flatulence. Bladder: No dysuria, gross hematuria, urinary frequency, urinary urgency, or incontinence Breast: No breast lumps, nipple d/c, overlying skin changes, redness or skin retraction Allergies and current medication updated:Yes EXAM: BP 126/72 Ht 5' 4 (1.63m) Wt 164 lb (74.4kg) BMI 28.14 kg/(m2). GENERAL: pleasant, female in no apparent distress HEENT: Normocephalic, atraumatic, mucus membranes moist and no lesions NECK: Supple, full range of motion, no adenopathy and thyroid normal DERMATOLOGY: Normal, without lesions, non-icteric and non-hirsute BREAST: soft, non-tender, symmetric, no dominant mass, normal nipple-areolar complex, no lymphadenopathy and no nipple discharge ABDOMEN: soft, non-tender and no masses PELVIC: external genitalia normal, normal Bartholin's glands, urethra, Ridgewood's glands, no vulvar lesions, good vaginal support, physiologic discharge present, normal appearing perineal body and perianal region, atrophic changes BIMANUAL: no adnexal masses, non-tender and uterus surgically absent RECTOVAGINAL: deferred. NEURO: alert and oriented x3,exam grossly non-focal EXTREMITIES: normal ASSESSMENT/PLAN: 1) Health maintenance: Pap/HPV screening no longer needed Mammogram ordered Mammogram up to date Nutrition, exercise and routine health maintenance exams reviewed. Calcium/Vitamin D supplementation information provided. Colon cancer screening: up to date with screening BMD: up to date 2) Follow up one year or sooner as needed Paula Villatoro MD Referring Provider: SELF [200] Allergies As of Date: 01/03/2018 Noted Allergy Reaction darvocet [Other] 01/29/2009 14 - Other: See Comments Comments: Nausea DEMEROL (MEPERIDINE (PF)) 07/29/2005 8 - GI Upset ESOMEPRAZOLE SODIUM 01/29/2009 4 - Hives PERCOCET (OXYCODONE-ACETAMINOPHEN)06/23/2010 14 - Other: See Comments Comments: nausea/headaches VICODIN (HYDROCODONE-ACETAMINOPHE*07/29/2005 8 - GI Upset 14 - Other: See Comments Comments: headache Date Reviewed: 01/03/2018 Reviewed by: Michelle Hampton Ma - Fully Assessed Reason for Visit: Yearly Exam [187] Primary Visit Diagnosis:Encounter for gynecological examination without abnormal finding [Z01.419] Other Visit Diagnosis:Encounter for screening mammogram for malignant neoplasm of breast [Z12.31] Order(s):[facility] SCREENING [[id number]] Order #: [id number] FUTURE Prescriptions as of 01/03/2018 Sig: ESTRADIOL 0.01% (0.1 MG/GRAM)* Use 4 g vaginally twice a wee* LOSARTAN 100 MG TABLET Take 100 mg by mouth once ottoniel* HYDROCHLOROTHIAZIDE 25 MG TAB* Take 1 tablet by mouth once d* SOTALOL 160 MG TABLET Take 1 tablet by mouth twice * WARFARIN 1 MG TABLET takes 1/2 daily ACTOS 45 MG TABLET Take one(1) tablet daily. METFORMIN 500 MG TABLET takes 2 tabs twice a day SIMVASTATIN 20 MG TABLET Take one(1) tablet daily. WARFARIN 3 MG TABLET Take one(1) tablet daily. CENTRUM SILVER TABLET Take one(1) tablet daily. MEDICATION, NON-DATABASE Cinnamon takes 1000 mg 2 tabs* MAGOX 400 MG TABLET Take one(1) tablet daily. OMEGA-3 FATTY ACIDS 1,000 MG * Take one(1) tablet daily. 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 Follow-up and Disposition History Recorded Encounter Status:Closed by PAULA PERAZA MD on 01/03/18 PROGRESS Observed: 01/03/2018 Status: COMPLETED Source: [place] 8:[address] [facility] REPOSITORY HNO ID: [id number] Author: Michelle Hampton Ma Service: (none) Author Type: (none) Type: Progress Notes Filed: 01/03/2018 9:56 AM Note Text: Wrap Yarn Sorter offered: Patient declines. PROTIME W/INR Collected: 12/22/2017 Status: F Source: [place] 4:55 PM [facility] REPOSITORY TYPE CODE TESTS RESULT OUT OF REFERENCE UNITS RANGE LAB L9200.1001 11.9-14.4 SEC High PROTIME ISTAT 38.9 Result Comment: Reference Range 11.9 - 14.4 LAB L9200.2000 Normal INR ISTAT 3.40 Result Comment: Critical Value > 3.5 Performed By: #### L9200.0000 #### [facility] [address] [place] [address] PROTIME W/INR Collected: 12/15/2017 Status: F Source: [place] 2:09 PM [facility] REPOSITORY TYPE CODE TESTS RESULT OUT OF REFERENCE UNITS RANGE LAB L9200.1001 11.9-14.4 SEC High PROTIME ISTAT 16.6 Result Comment: Reference Range 11.9 - 14.4 LAB L9200.2000 Normal INR ISTAT 1.40 Result Comment: Critical Value > 3.5 Performed By: #### L9200.0000 #### [facility] [address] [place] [address] PACEMAKER CHECK Observed: 12/13/2017 Status: F Source: [place] 8:30 AM [facility] REPOSITORY [facility] [address] [place] [address] Pacemaker Check Date of Service: 12/05/17 1715 MR#: [id number] Acct: [id number] Name: EFREN HESS Rep #: [id number] : 1950 From: Gale Nascimento Age/Sex: 67/F Location: [facility] Status: Signed Comments Summary Comments: Bi-VPacemaker Evaluation: Interrogation shows no AT/AF and no VT/VF episodes since 07/28/17. Left pectoral pocket/incision w/o s/s of infection or erosion. Pt offers no cardiac complaints. Presenting rhythm shows AV sequential Bi-Vpaced @ 61 ppm. ECHO VASC TECH=98.9%. Estimated battery life 13 mos. Lead impedances, sensing and pace/sense thresholds remain stable. Decreased atrial amplitude with adequate safety margin. Counters cleared. Next f/u appt scheduled for in 3 mos. Device Device Date Interviewed: 12/05/17 Follow-up Location: in office Interview Reason: routine follow up Office Manager: [employer] Name: Syncra LENS DOTTER-P Model: C2TR01 Serial #: [id number] Implant Date: 11/13/10 Year(s): 7 Implant Physician: Dr. Jeffers/JUDE Patient Characteristics Atrial Indication: sick sinus syndrome, Paroxysmal atrial fibrillation, Supraventricular tachycardia Patient Substrate: Syncope Ejection fraction %: 45 to 49 By: Echo Underlying rhythm: Sinus rhythm Pacemaker Dependent: No Device Characteristics Device: Biventricular Type: Pacemaker Remote Follow-Up: No Device Physical Exam Yes Incision well healed Leads Lead #1 Office Manager Lead 1: St. Al Model Lead 1: [id number] Serial# Lead 1: [id number] Date Implanted Lead 1: 11/13/10 Position Lead 1: RA Lead #2 Office Manager Lead 2: [employer] Model Lead 2: 5076 Serial# Lead 2: [id number] Date Implanted Lead 2: 11/13/10 Position Lead 2: RV Lead #3 Office Manager Lead 3: [employer] Model Lead 3: 4296 Serial# Lead 3: [id number] Date Implanted Lead 3: 11/13/10 Position Lead 3: LV [employer] Pacing % RA Pacin.3 % RV Pacin.9 Mode Switching Total # Episodes: 0 % Mode switched: 0 Arrhythmias Non-Sust Episodes: 0 Josef Settings Pacemaker Mode: DDDR Base Rate: 60 bpm Max Track Rate: 130 bpm Max Sensor Rate: 120 bpm Maximum AV Delay: 170 msec Bradycardia Output and Sensitivity Settings Right Atrium: 0.6 msec, 2.5 volts, 0.45 mV sensitivity. Right Ventricle: 0.4 msec, 2.0 volts. Left Ventricle: 0.4 msec, 2.5 volts. Billing Codes PM Device Codes: PM Dev Prog Eval, Multi Assessment AND Plan Problems 1. Cardiac pacemaker in situ Z95.0 11/14/2010, Biventricular pacemaker placed 2. Syncope and collapse R55 3. Supraventricular tachycardia I47.1 4. Atrial flutter I48.92 5. Cardiomyopathy in other diseases classified elsewhere I43 6. Paroxysmal atrial fibrillation I48.0 ablation 12/12/17 1821 <Electronically signed by Gale Nascimento > Date Gale Nascimento 12/13/17 0830<Electronically signed by Will Montanez MD> Cosigner Signature: Date (if applicable) Will Montanez MD CC: DOWNTIME REPORT Observed: 12/01/2017 Status: F Source: [place] 12:24 PM [facility] REPOSITORY [facility] Medical Records Department [address] [place] [address] Downtime Report MR#: [id number] Acct: [id number] Name: MARTÍN DAILYEFREN JOLLY Rep #: [id number] : 1950 67 From: Julian Guzman PCP: Jose Guzman MD Status: REG RCR This patient was seen during an EMR downtime November 14, 2017 - November 21, 2017. This patient may have a combination of paper and electronic documentation or all paper documentation. All documentation is viewable within the e-chart portion of [facility] for each patient visit. PROTIME W/INR Collected: 11/17/2017 Status: F Source: [place] 10:19 AM [facility] REPOSITORY TYPE CODE TESTS RESULT OUT OF REFERENCE UNITS RANGE LAB L9200.1001 11.9-14.4 SEC High PROTIME ISTAT 32.7 Result Comment: Reference Range 11.9 - 14.4 LAB L9200.2000 Normal INR ISTAT 2.90 Result Comment: Critical Value > 3.5 Performed By: #### L9200.0000 #### [facility] Point [facility] [address] [place] [address] PROTIME W/INR Collected: 10/27/2017 Status: F Source: [place] 11:31 AM [facility] REPOSITORY TYPE CODE TESTS RESULT OUT OF REFERENCE UNITS RANGE LAB L9200.1001 11.9-14.4 SEC High PROTIME ISTAT 25.1 Result Comment: Reference Range 11.9 - 14.4 LAB L9200.2000 Normal INR ISTAT 2.20 Result Comment: Critical Value > 3.5 Performed By: #### L9200.0000 #### [facility] Point [facility] Care [address] [place] [address] PROTHROMBIN TIME W/INR Collected: 10/21/2017 Status: F Source: [place] 3:59 PM [facility] REPOSITORY Order Comment: Order Date: 04/19/17 Order Info: [id number] - *PT/INR - Standing Order Comments: Standing Order-Reason: Atrial fibrillation, on Coumadin Result obtained is for confirmation testing of Fingerstick PT/INR Specimen # [id number] . 10/21/17 1614 DAJA THIS CONFIRMATION SPECIMEN RESULT IS FROM VENOUS BLOOD. TYPE CODE TESTS RESULT OUT OF RANGE REFERENCE UNITS LAB L300.4150 11.7-14.9 SECONDS High PROTIME 32.3 LAB L300.4200 Normal INR 3.1 Performed By: #### L300.3900 #### [facility] [address] [place], [address] PROTIME W/INR Collected: 10/21/2017 Status: F Source: [place] FINGER[place]ICK 3:56 PM [facility] REPOSITORY TYPE CODE TESTS RESULT OUT OF REFERENCE UNITS RANGE LAB L9200.1001 11.9-14.4 SEC High PROTIME ISTAT 46.1 Result Comment: Reference Range 11.9 - 14.4 LAB L9200.2000 High alert INR ISTAT 4.10 Result Comment: Critical Value > 3.5 Performed By: #### L9200.0000 #### [facility] [address] [place] [address] EMERGENCY DEPARTMENT Observed: 10/20/2017 Status: F Source: [place] SUMMARY 4:05 PM [facility] REPOSITORY [facility] Medical Records Department [address] [place] [address] Emergency Department Summary 10/20/17 1126 MR#: [id number] Acct: [id number] Name: EFREN HESS Rep #: [id number] : 1950 66 From: Dulce Live MD PCP: Jose Guzman MD Status: DEP ER - ER Visit Summary Date of Service: 10/20/17 Chief Complaint: [] Left lower extremity redness concern for DVT by physicians History of Present Illness: The patient is a 66 F [] and had what she describes as a cancerous lesion resected from the anterior liz region left lower extremity recently, she was followed up by her sheet rock nailer today the area was slightly red and the sheet rock nailer sent the patient to the emergency department T piece scan for DVT. The patient reports no fever no cough no trauma no warmth she is not quite sure why the redness is they are it has been there for a few days she has no history of cellulitis infection MRSA she is otherwise feeling fine, she has no history of again any symptoms of any kind her review of systems are all entirely negative and she has not had any history of DVT Patient is supposed to return directly back to the sheet rock nailer office today after the duplex scan is done for further therapy Physical Examination: [] Her vitals are within normal range head neck chest unremarkable the lungs are clear heart tones are normal abdomen soft the left liz region there is a circular dot that represents the resected area the entire left lower extremity is nontender there is some slight redness around this circular dot again is no warmth no signs of obvious cellulitis to dorsi and plantar flexion the foot is normal strong dorsalis pedis pulse foot toes all negative Test Results: [] Emergency Department Course and Treatment: [] duplex scan is obtained is unremarkable when results of her duplex scan and she will follow-up with her sheet rock nailer today as scheduled above patient's comfort with this plan Treatment Plan: [] Disposition: [] Home stable Impression: [] Redness to left anterior liz status post biopsy/resection squamous cell carcinoma by patient history This note was generated with [employer] dictation software. It may contain incorrect words, spelling, and punctuation that were not noted in review of the chart prior to signing ED Disposition - Plan for ED Patient: Chief Complaint: Lower Extremity Injury Referrals: Jose Guzman MD [Primary Care Provider] - What to do if you have Problems For any increased pain, shortness of breath, bleeding, nausea or vomiting, chest pain, or any unexpected problems, contact your Primary Care Provider. Call [employer] [facility] ([phone]) or report to the closest Emergency Room. Call 911 if necessary. 10/20/17 1605 <Electronically signed by Dulce Live MD> Date Dulce Live MD Cosigner Signature (If Indicated): Date CC: Jose Guzman MD VENOUS DUPLEX LOWER Observed: 10/20/2017 Status: F Source: [place] EXTREMITY 11:48 AM [facility] REPOSIT[facility] Cardiovascular Services [address] [place] [id number] Venous Duplex - [facility] 10/20/17 1125 MR#: [id number] Acct: [id number] Name: EFREN HESS Rep #: [id number] : 1950 66 From: Erasto Garcia MD Attending Dr: Status: PRE ER Ordering Dr: Dulce Live MD Date: 10/20/17 Location: ED Sex: F C Admitted: Reason For Study: LEG SWELLING RIGHT LEFT GSV is normal. GSV is normal. CFV is compressible, spontaneous, phasic, CFV is compressible, spontaneous, phasic, competent and demonstrates normal competent, and demonstrates normal augmentation. augmentation. FV is compressible, spontaneous, phasic, FV is compressible, spontaneous, phasic, competent and demonstrates normal competent and demonstrates normal augmentation. augmentation. POP V is compressible, spontaneous, phasic, POP V is compressible, spontaneous, phasic, competent and demonstrates normal competent and demonstrates normal augmentation. augmentation. T/P Trunk is compressible. T/P Trunk is compressible. PTV is compressible. PTV is compressible. RT PerV is compressible. LT PerV is compressible. Procedure Exam performed portable in ED. A preliminary report was called and/or faxed to Dr. Live. Interpretation Summary Deep veins of the lower extremities are bilaterally patent and compressible segmentally. There is no evidence of deep vein thrombosis on either side. Valvular competence appears intact within the proximal deep venous systems bilaterally. The greater saphenous veins appear bilaterally patent and compressible segmentally. Ordering Physician: Marimar Live Referring Physician: Will Montanez Performed By: Shelbie Robb RVT 10/20/17 1148 Date Erasto Garcia MD CC: MD Marimar Live; Jose Guzman MD Date Dictated: 10/20/17 1125 Date Transcribed: 10/20/17 114 Senior Quality Technician: Signed DISCHARGE INSTRUCTION Observed: 10/20/2017 Status: F Source: [place] 11:30 AM [facility] REPOSITORY [facility] Medical Records Department [address] [place] [address] Discharge Instruction 10/20/171128 MR#: [id number] Acct: [id number] Name: EFREN HESS Rep #: [id number] : 1950 66 From: Dulce Live MD PCP: Jose Guzman MD Status: PRE ER ED Disposition - Plan for ED Patient: Chief Complaint: Lower Extremity Injury Instructions: ED Contusion Lower Ext Referrals: Jose Guzman MD [Primary Care Provider] - Additional Instructions: Follow-up today as instructed with her sheet rock nailer for further treatment options What to do if you have Problems For any increased pain, shortness of breath, bleeding, nausea or vomiting, chest pain, or any unexpected problems, contact your Primary Care Provider. Call [facility] ([phone]) or report to the closest Emergency Room. Call 911 if necessary. 10/20/17 1130 <Electronically signed by Dulce Live MD> Date Dulce Live MD Cosigner Signature (If Indicated): Date CC: Jose Guzman MD PROTIME W/INR Collected: 10/14/2017 Status: F Source: [place] 3:56 PM [facility] REPOSITORY TYPE CODE TESTS RESULT OUT OF REFERENCE UNITS RANGE LAB L9200.1001 11.9-14.4 SEC High PROTIME ISTAT 38.4 Result Comment: Reference Range 11.9 - 14.4 LAB L9200.2000 Normal INR ISTAT 3.40 Result Comment: Critical Value > 3.5 Performed By: #### L9200.0000 #### [facility] Point of Care [address] [place] [address] BASIC METABOLIC Collected: 09/16/2017 Status: F Source: [place] PROFILE (BMP) 8:09 AM [facility] REPOSITORY Order Comment: DR. GUZMAN ORDERED LIPID, A1C, BMP DR. MONTANEZ ORDERED LIVER AND LIPID Order Date: 09/15/17 Order Info: 0667-1 - BMP Order Info: 79795-1 - LIPID TYPE CODE TESTS RESULT OUT OF RANGE REFERENCE UNITS LAB L501.0100 74-106 mg/dL High GLU 113 Result Comment: Fasting Glucose result from 100 to 125 mg/dL suggests IMPAIRED HOMEOSTASIS per A.D.A. criteria. Please note revised GLUCOSE reference range effective 2017. LAB L501.1000 7-18 mg/dL High BUN 24 LAB L501.1100 0.55-1.02 mg/dL Normal CREAT,SERUM 0.94 Result Comment: The validity of the calculated GFR AND GFRAA in patients over 70 years has not been determined. Clinical correlation is essential. LAB L501.1110 >60 mL/min Normal EST GFR 63 Result Comment: Non- GFR Calc LAB L501.1115 >60 mL/min Normal EST GFR - AA 76 Result Comment: GFR Calc LAB L501.1300 10-20 RATIO High BUN/CRE 25.5 LAB L501.2200 8.5-10.1 mg/dL CA Normal 8.6 LAB L501.5300 136-145 mmol/L NA Normal 139 LAB L501.5600 3.5-5.1 mmol/L K Normal 4.1 LAB L501.5900 98-107 mmol/L CL Normal 102 LAB L501.6100 21.0-32.0 mmol/L Normal CO2 29.0 LAB L501.6200 5-15 Normal GAP 8 Performed By: #### L500.2500, L500.4100, L501.9985 #### [facility] [address] [place], [address] LIPID PROFILE Collected: 09/16/2017 Status: F Source: [place] 8:09 AM [facility] REPOSIT[facility] Order Comment: DR. GUZMAN ORDERED LIPID, A1C, BMP DR. MONTANEZ ORDERED LIVER AND LIPID Order Date: 09/15/17 Order Info: 0667-1 - BMP Order Info: 00724-5 - LIPID TYPE CODE TESTS RESULT OUT OF RANGE REFERENCE UNITS LAB L501.4900 200 mg/dL Normal CHOL 116 Result Comment: <200 mg/dL Desirable 200-240 mg/dL Borderline >240 mg/dL High Risk LAB L501.5000 mg/dL Normal TRIG 112 Result Comment: The drugs N-Acetylcysteine and Metamizole may falsely depress this assay. Serum Triglycerides Reference Interval Normal <150 mg/dL Borderline high 150 - 199 mg/dL High 200 - 499 mg/dL Very High > or = 500 mg/dL LAB L501.6400 mg/dL Normal HDL 59 Result Comment: The drugs N-Acetylcysteine and Metamizole may falsely depress this assay. Reference Range HDL <40 mg/dL Low HDL Cholesterol HDL >or= 60 mg/dL High HDL Cholesterol LAB L501.6500 0-130 mg/dL Normal LDL 35 LAB L501.6600 5-40 mg/dL Normal VLDL 22 Performed By: #### L500.2500, L500.4100, L501.9985 #### [facility] [address] [place], [address] HEMOGLOBIN A1C Collected: 09/16/2017 Status: F Source: [place] 8:09 AM [facility] REPOSIT[facility] Order Comment: Order Date: 09/15/17 Order Info: 4548-4 - A1C TYPE CODE TESTS RESULT OUT OF RANGE REFERENCE UNITS LAB L501.9985 4.2-6.3 % High HGB A1C 7.0 Performed By: #### L500.2500, L500.4100, L501.9985 #### [facility] [address] [facility] [place], [place], [address] LIVER PROFILE Collected: 09/16/2017 Status: F Source: [place] 8:09 [facility] REPOSITORY Order Comment: DR. GUZMAN ORDERED LIPID, A1C, BMP DR. MONTANEZ ORDERED LIVER AND LIPID Order Date: 09/15/17 Order Info: 0667-1 - BMP Order Info: 01246-3 - LIPID TYPE CODE TESTS RESULT OUT OF RANGE REFERENCE UNITS LAB L501.1500 6.4-8.2 g/dL Normal T PROT 6.8 LAB L501.1800 3.2-5.0 g/dL Normal ALB 3.3 LAB L501.1950 2.2-4.2 g/dL Normal GLOB 3.5 LAB L501.4100 15-37 U/L Normal AST 24 LAB L501.4305 45-117 U/L Normal ALK P 55 LAB L501.4405 13-56 U/L Normal ALT 23 Result Comment: Please note revised ALT reference range effective 2017. LAB L501.4600 0.20-1.00 mg/dL Normal T BILI 0.30 LAB L501.4700 0.00-0.30 mg/dL Normal D BILI 0.09 Performed By: #### L500.3400 #### [facility] [address] [place], [address] CNCO Observed: 09/13/2017 Status: COMPLETED Source: [place] 4:53 PM [facility] REPOSITORY HNO ID: [id number] Author: Mammography Coordinator Service: (none) Author Type: Physician Type: Letter Filed: 09/14/2017 11:33 PM Note Text: September 13, 2017 PID: [id number] Efren Murguia Martín Ambrosio [address] [place] [address] Dear Martín Ambrosio, We are pleased to inform you that the results of your recent breast imaging exam on 09/13/2017 are normal. Early detection of cancer is very important. We also understand recommendations regarding breast cancer screening are controversial. Please discuss with your primary care provider which strategy is best for you and whether a mammogram is right for you. Your imaging studies and report will be kept on file at [facility] as part of your permanent medical record and are available for your continuing care. Thank you for allowing us to help in meeting your health care needs. Sincerely, Dr. Treadwell Interpreting Radiologist [facility] (Normal over 40) GABRIEL DIG SCREEN CAD Observed: 09/13/2017 Status: F Source: [facility] 3:06 PM [facility] [place] REPOSITORY * * *Final Report* * * DATE OF EXAM: Sep 13 2017 3:06PM BEATRIZ 6361 - [facility] DIG SCREEN CAD SELENE - BILATERAL / PROCEDURE REASON: Encounter for screening mammogram for malignant neoplasm of breast * * * * Physician Interpretation * * * * RESULT: #[id number] - [facility] DIG SCREEN CAD SELENE BILATERAL DIGITAL SCREENING MAMMOGRAM WITH CAD: 09/13/2017 HISTORY: Encounter For Screening Mammogram For Malignant Neoplasm Of Breast /priors available for comparison. RESULT: TECHNIQUE: The study was acquired using full field digital technology and interpreted from soft copy. Current study was also evaluated with a Computer Aided Detection (CAD). Comparison is made to exams dated: 09/09/2016 mammogram, 07/24/2015 mammogram, and 07/09/2014 mammogram - [facility]. The tissue of both breasts is predominantly fatty. There is a stable pacemaker in the left breast in the axilla. No significant masses, calcifications, or other findings are seen in either breast. IMPRESSION: BENIGN FINDING There is no mammographic evidence of malignancy. A 1 year screening mammogram is recommended. Ingrid Treadwell M.D., mc/amrit:09/13/2017 16:53:37 [place] Supervisor Brick: Nydia DEJESUS(Hui)(Nyla), [facility] letter sent: Normal over 40 Mammogram BI-RADS: 2 Benign finding Senior Quality Technician: Amrit Transcribe Date/Time: Sep 13 2017 2:50P Dictated by: INGRID BUENO MD This examination was interpreted and the report reviewed and electronically signed by: INGRID BUENO MD on Sep 13 2017 4:53PM EST PROCEDURE Observed: 09/13/2017 Status: COMPLETED Source: [place] 2:49 PM [facility] [place] REPOSITORY O ID: [id number] Author: Mindi Goodson (Rt) Service: (none) Author Type: Institutional Nutrition Consultant Type: Procedures Filed: 09/13/2017 2:51 PM Note Text: Radiology Service Progress Note PATIENT NAME: Efren Ambrosio DATE OF SERVICE: September 13, 2017 TIME: 2:49 PM PATIENT IDENTITY VERIFICATION COMPLETED USING TWO (2) METHODS: Patient confirmed name verbally and Date of . PATIENT GENDER DATA: Female. status: : No status: NO. PATIENT RELEVANT IMPLANT DATA REVIEWED: Not Applicable RADIOLOGY DEPARTMENT: [facility] IV DATA: Not applicable SIGNED BY: RT Kellee September 13, 2017 2:49 PM PROTIME W/INR Collected: 09/02/2017 Status: F Source: [place] 2:53 PM [facility] REPOSITORY TYPE CODE TESTS RESULT OUT OF REFERENCE UNITS RANGE LAB L9200.1001 11.9-14.4 SEC High PROTIME ISTAT 29.1 Result Comment: Reference Range 11.9 - 14.4 LAB L9200.2000 Normal INR ISTAT 2.50 Result Comment: Critical Value > 3.5 Performed By: #### L9200.0000 #### [facility] Point of Care [place] [address] OFFICE VISIT REPORT Observed: 08/09/2017 Status: F Source: [place] 7:24 PM [facility] [place] [address] OFFICE VISIT Date of Service: 07/28/17 MR#: [id number] Acct: [id number] Patient: EFREN HESS Rep #: [id number] : 1950 Provider: Will Montanez MD Age/Sex: 66/F Location: [facility] Status: Signed Comments Summary Comments: Bi-V Pacemaker Evaluation: Interrogation shows 4 AT/AF episodes, longest 6 mins, <0.1% total time. Stored markers/e-grams show atrial flutter with appropriate MS. Pt on Coumadin. Left pectoral pocket/incision w/o s/s of infection or erosion. Pt offers no cardiac complaints. Presenting rhythm shows AV sequential Bi-V paced @ 81 ppm. Bi-Vpaced=98.9%. Battery longevity approx 2 yrs. Lead impedances, sensing and pace/sense thresholds remain stable. Increased atrial amplitude and decrease LV amplitude with adequate safety margins to preserve battery life. Counters cleared. Next f/u appt scheduled for in 3 mos. Device Device Date Interviewed: 07/28/17 Follow-up Location: in office Interview Reason: routine follow up Office Manager: [employer] Name: Syncra LENS DOTTER-P Model: C2TR01 Serial #: [id number] Implant Date: 11/13/10 Year(s): 6 Implant Physician: Dr. Jeffers/[facility] Patient Characteristics Atrial Indication: sick sinus syndrome, Paroxysmal atrial fibrillation, Supraventricular tachycardia Patient Substrate: Syncope Ejection fraction %: 45 to 49 By: Echo Underlying rhythm: Sinus rhythm Pacemaker Dependent: No Device Characteristics Device: Biventricular Type: Pacemaker Remote Follow-Up: No Device Physical Exam Yes Incision well healed Leads Lead #1 Office Manager Lead 1: St. Al Model Lead 1: 1688TC Serial# Lead 1: [id number] Date Implanted Lead 1: 11/13/10 Position Lead 1: RA Lead #2 Office Manager Lead 2: [employer] Model Lead 2: 5076 Serial# Lead 2: [id number] Date Implanted Lead 2: 11/13/10 Position Lead 2: RV Lead #3 Office Manager Lead 3: [employer] Model Lead 3: 4296 Serial# Lead 3: [id number] Date Implanted Lead 3: 11/13/10 Position Lead 3: LV Diagnostics Pacing % RA Pacin.2 % RV Pacin.9 % LV Pacin.9 Mode Switching Total # Episodes: 4 % Mode switched: 0.1 Arrhythmias Non-Sust Episodes: 0 Measurements Battery Voltage (V): 2.91 Magnet Rate (bmp): 85 ANDREW Voltage: 2.77 Predicted Remaining Longevity (months or years): 2 years RA Measurements Signal Amplitude (mV): 0.6 Impedance (Ohms): 418 Threshold Voltage: 1.75 @ PW(ms): 0.6 RV Measurements Signal Amplitude (mV): 7.0 Impedance (Ohms): 817 Threshold Voltage: 0.5 @ PW(ms): 0.4 LV Measurements Impedance (Ohms): 589 Threshold Voltage: 1.25 @ PW(ms): 0.4 Josef Settings Pacemaker Mode: DDDR Base Rate: 60 bpm Max Track Rate: 130 bpm Max Sensor Rate: 120 bpm Maximum AV Delay: 170 msec Billing Codes PM Device Codes: PM Dev Prog Eval, Multi Assessment AND Plan Problems 1. Cardiac pacemaker in situ Z95.0 11/14/2010, Biventricular pacemaker placed 2. Cardiomyopathy in other diseases classified elsewhere I43 3. Atrial flutter I48.92 4. Supraventricular tachycardia I47.1 5. Syncope and collapse R55 6. Paroxysmal atrial fibrillation I48.0 ablation 08/09/17 1924 <Electronically signed by Will Montanez MD> Date Will Montanez MD 08/06/17 1423<Electronically signed by Gale Nascimento > Delgado Signature: Date (if applicable) Gale Nascimento CC: FRANNY Oconnell/JENIFER Collected: 07/29/2017 Status: F Source: [place] 3:16 PM [facility] REPOSITORY TYPE CODE TESTS RESULT OUT OF REFERENCE UNITS RANGE LAB L9200.1001 11.9-14.4 SEC High PROTIME ISTAT 29.2 Result Comment: Reference Range 11.9 - 14.4 LAB L9200.2000 Normal INR ISTAT 2.50 Result Comment: Critical Value > 3.5 Performed By: #### L9200.0000 #### [facility] Point of Care [address] [place] [address] CARDIOLOGY VISIT Observed: 07/28/2017 Status: F Source: [place] REPORT 4:52 PM [facility] REPOSITORY [facility] [address] [place] [address] OFFICE VISIT Date of Service: 07/28/17 MR#: [id number] Acct: [id number] Name: EFREN HESS Rep #: [id number] : 1950 Provider: Yoanna Welch Age/Sex: 66/F Location: [facility] Status: Signed HPI HPI Details: EFREN AMBROSIO, is a 66 F who presents to the office today for a cardiovascular followup. She has a history of atrial fibrillation/flutter post right-sided ablation with repeat ablation in 2009. She also has a history of hypertension and diabetes. She had a pacemaker placed with LENS DOTTER due to a low ejection fraction. Echocardiogram in 2010 demonstrated preserved ejection fraction of 55%. Bi-V pacemaker interrogation today demonstrates that is functioning appropriately. From a cardiac standpoint, patient is doing well. She does not have any chest discomfort/heaviness/tightness. Her exercise tolerance is stable for her age. She does not have any worsening symptoms of shortness of breath. She does not have any orthopnea. She denies PND. She does not have any symptoms of congestive heart failure. She does not have any palpitations that she is aware of. She does not have any lightheadedness or dizziness. She does not have any near-syncope or syncope. She does not have any lower extremity edema. She does not have any symptoms of claudication. Intake Vital Signs07/28/17 Height 5 ft 4 in 07/28/17 Weight: 166 lb 07/28/17 Body Mass Index (BMI) 28.5 07/28/17 Blood Pressure 130/80 07/28/17 Pulse Rate 64 Intake Visit Reasons: 6 M FU Allergies esomeprazole [From Nexium] Adverse Reaction (Severe, Verified 07/28/17 09:18) Hives meperidine [From Demerol] Adverse Reaction (Severe, Verified 07/28/17 09:18) Unknown povidone-iodine [From Betadine] Adverse Reaction (Severe, Verified 07/28/17 09:18) Unknown soap [From Betadine] Adverse Reaction (Severe, Verified 07/28/17 09:18) Unknown acetaminophen [From Darvocet-N] Adverse Reaction (Intermediate, Verified 07/28/17 09:18) Unknown propoxyphene [From Darvocet-N] Adverse Reaction (Intermediate, Verified 07/28/17 09:18) Unknown hydrocodone [From Vicodin] Adverse Reaction (Mild, Verified 07/28/17 09:18) Nausea, headache oxycodone [From Percocet] Adverse Reaction (Mild, Verified 07/28/17 09:18) Nausea Medications warfarin 3 mg tablet 3 mg PO QDAY 05/17/17 [History Confirmed 07/28/17] acetaminophen 500 mg tablet 500 mg PO .Take As Directed tab 07/07/17 [History Confirmed 07/28/17] aspirin 81 mg tablet,delayed release 81 mg PO QDAY 07/07/17 [History Confirmed 07/28/17] hydrochlorothiazide 50 mg tablet 50 mg PO QDAY 07/07/17 [History Confirmed 07/28/17] losartan 100 mg tablet 100 mg PO QDAY 07/07/17 [History Confirmed 07/28/17] metformin 500 mg tablet See Label Instructions PO BID 07/07/17 [History Confirmed 07/28/17] pioglitazone 45 mg tablet 45 mg PO QDAY 07/07/17 [History Confirmed 07/28/17] simvastatin 20 mg tablet 20 mg PO QHS #90 tab 07/13/17 [Rx Confirmed 07/28/17] sotalol 160 mg tablet 160 mg PO BID #180 tab 07/13/17 [Rx Confirmed 07/28/17] cinnamon bark 500 mg capsule mg PO 07/28/17 [History Confirmed 07/28/17] glucosamine 750 bo-fknvtczmeyl-eqj no1 644 mg-C 30 mg-nia 1 mg tablet tab PO 07/28/17 [History Confirmed 07/28/17] magnesium oxide 400 mg capsule 400 mg PO QDAY cap 07/28/17 [History Confirmed 07/28/17] multivitamin tablet 1 tab PO QAM 07/28/17 [History Confirmed 07/28/17] warfarin 1 mg tablet PO 90 Days #45 07/28/17 [History Confirmed 07/28/17] Ejection fraction %: 55 to 59 PFSH Medical History Cardiomyopathy in other diseases classified elsewhere (Resolved) 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) Hyperlipidemia (Chronic) Hypertension (Chronic) Atrial flutter (Chronic) Supraventricular tachycardia (Chronic) Syncope and collapse (Chronic) Atrial fibrillation (Chronic) Surgical History Cardiac pacemaker in situ (Chronic) Family History Father Hypertension Renal failure Mother Diabetes Hypertension HLD (hyperlipidemia) Lupus MVP (mitral valve prolapse) Brother Cancer Spine Cancer Sister Hypertension GERD (gastroesophageal reflux disease) Social History Smoking Status: Never smoker alcohol intake: current Alcohol type: hard liquor substance use type: does not use seatbelt use: always ROS Const Const: Negative for weakness, fatigue, fever(s) or headache(s) Eyes Eyes: Negative for blind spots, loss of peripheral vision or transient loss of vision ENT ENT: Negative for headache(s), Negative for dizziness, Negative for tinnitus, Negative for Nosebleed/epistaxis Cardio Chest Pain: No Palpitations: Positive for No Edema: None Muscle aches with walking: None Resp Respiratory: Negative for SOB with activity, SOB at rest or SOB orthopnea\SOB lying down GI GI: Negative nausea, vomiting, heartburn or vomiting blood/hematemesis : Negative for hematuria Musc Musc: Negative for muscle aches/ myalgia Neuro Neuro: Negative for weakness, Negative for headache(s), Negative for dizziness, Negative for near syncope, Negative for syncope, Negative for lightheadedness [place] Hematologic/Lymphatic: Negative for easy bleeding Endo Endo: Negative for fatigue Cardiology Exam Const Appearance: cooperative, no acute distress and well developed Orientation: alert, awake and oriented x3 Head Head: normocephalic and atraumatic Mouth: moist mucous membranes Eyes General: appearance normal, both eyes and all related structures Conjunctivae: conjunctivae normal Pupils: PERRL EOM: EOM intact bilaterally Neck Neck: normal visual inspection, no lymphadenopathy and no JVD Carotids: Negative bruit Neck Mass: Negative Neck mass Chest Chest inspection: normal inspection of the chest, symmetric chest movement and Pacemaker/ICD Yes left pectoral incision Auscultation: Bilateral: Clear to Auscultation Cardio Palpation: normal PMI Rate: regular rate Rhythm: regular rhythm Heart sounds: S1 normal and S2 normal; negative rub, gallop or murmur GI GI: normal to inspection, soft, no hepatosplenomegaly and bowel sounds present; negative tender Neuro General: alert, awake, oriented x3, CN's II-XI intact bilaterally and moves all extremities Extremities Pulses: Normal: Right Posterior Tibial Pulse, Left Posterior Tibial Pulse, Right Radial Pulse, Left Radial Pulse Lower Extremity Edema: None: Bilateral Psych Psychological: normal affect Assessment AND Plan 1. Paroxysmal atrial fibrillation I48.0 ablation /2009 Plan - [facility] Patient does have paroxysmal atrial fibrillation. She is on sotalol in addition to an anticoagulant with a therapeutic INR goal of 2-3. Will not make any adjustments. 2. Pure hypercholesterolemia E78.00; E78.0 Plan - [facility] Laboratory Tests Cholesterol 124 LDL Cholesterol 37 HDL Cholesterol 58 Managed by primary care doctor. There are adequately controlled. Will not make any adjustments 3. Cardiac pacemaker in situ Z95.0 11/14/2010, Biventricular pacemaker placed Plan - GALA Bobby Pacemaker is functioning appropriately. We will continue to monitor at routine scheduled pacemaker interrogations. 4. Cardiomyopathy in other diseases classified elsewhere I43 Plan - GALA Bobby This is since resolved. She does not have any symptoms of congestive heart failure. We will continue to monitor by history, exam and echocardiograms as deemed appropriate Plan Detail Additional Comments - GALA Bobby The above patient was discussed with Dr. Montanez, he agrees with plan of care. Thank you for allowing us to participate in patient's plan of care, if you have any questions please do not hesitate to call. This note was generated using a voice recognition system and there may be incorrect words, spelling or punctuation errors that were not noted when reviewing the office note prior to saving. Follow Up 9 Months (ELECTRICAL MAINTENANCE MAN) Coding Level of Care Code Off vis,est,level 3 Diagnoses Paroxysmal atrial fibrillation I48.0 Atrial fibrillation type: paroxysmal Pure hypercholesterolemia E78.00; E78.0 Hyperlipidemia type: pure hypercholesterolemia Cardiac pacemaker in situ Z95.0 Cardiomyopathy in other diseases classified elsewhere I43 Coding Level of Care Code Off vis,est,level 3 Diagnoses Paroxysmal atrial fibrillation I48.0 Atrial fibrillation type: paroxysmal Pure hypercholesterolemia E78.00; E78.0 Hyperlipidemia type: pure hypercholesterolemia Cardiac pacemaker in situ Z95.0 Cardiomyopathy in other diseases classified elsewhere I43 07/28/17 1011 <Electronically signed by Yoanna CEDEÑO> Date Yoanna CEDEÑO 07/28/17 1652<Electronically signed by Will Montanez MD> Cosigner Signature: Date (if applicable) Will Montanez MD CC: Jose Guzman MD ALLERGIES ALLERGIES DATE TYPE / CODE NAME / CODE REACTION SEVERITY SOURCE Drug hydrocodone/F0060 Nausea, [place] 8 Allergy/597824512( 63110(RXNORM) headache [facility] Drug oxycodone/N954799 Nausea [place] 8 Allergy/215543626( 558(RXNORM) [facility] Repository Drug propoxyphene/F006 Unknown [place] 8 Allergy/791460140( 531477(RXNORM) [facility] Repository Drug acetaminophen/F00 Unknown [place] 8 Allergy/382704893( 5205860(RXNORM) [facility] Hospital Repository Drug soap/F906610180(R Unknown [place] 8 Allergy/090525368( XNORM) [facility] SNOMED CT) Hospital Repository Drug povidone-iodine/F Unknown [place] 8 Allergy/282293773( 233180337(RXNORM) [facility] Rep[facility] Drug meperidine/E96174 Unknown SV [place] 8 Allergy/426887775( 4620(RXNORM) [facility] Hospital Repository Drug esomeprazole/F006 Hives [place] 8 Allergy/764652799( 270912(RXNORM) [facility] Hospital Repository DRUG/947613335(SNO OXYCODONE-ACETAMI OTHER: SEE C [place] [address]) [facility] Repository DRUG ESOMEPRAZOLE HIVES [place] 9 INGREDI/246109381( SODIUM [facility] SNOMED CT) [facility] Rep[facility] Miscellaneous OTHER OTHER: SEE C [place] 9 Allergy/586785001( [facility] SNOMED CT) [facility] Repository DRUG/132808459(SNO MEPERIDINE (PF) GI UPSET [place] [address] Repository DRUG/157293136(SNO HYDROCODONE-ACETA GI UPSET [place] [address] [facility] Repository ENCOUNTERS ENCOUNTERS ADMIT/DISCHARGE ACCOUNT ADMITTING ENCOUNTER LOCATION SOURCE NUMBER CLASS 06/15/2018/06/15/19 [id number] Ambulatory BMSBuilding:B [place] [address] [facility] Repository 06/13/2018 [id number] Ambulatory [facility] ing:MTLAB Repository 06/09/2018/06/09/20 [id number] Ambulatory [address] ing:MTLAB Repository 05/15/2018 [id number] Ambulatory BMSBuilding:B [place] MS.CF.[facility] Repository 05/15/2018 [id number] Ambulatory [facility] ing:CVS Repository 05/02/2018/05/02/20 [id number] Ambulatory BMSBuilding:B [place] [address] [facility] Repository 04/24/2018/04/24/20 [id number] Ambulatory [address] ing:MTLAB Repository 03/23/2018/03/23/20 [id number] Ambulatory [address] ing:MTLAB Repository 03/16/2018 [id number] [place] [facility] ing:MTLAB Repository 03/09/2018/03/09/20 [id number] Ambulatory BMSBuilding:B [place] [address] [facility] Repository 02/23/2018/02/24/20 [id number] [place] 18 [facility] ing:MTLAB Repository 01/24/2018/01/25/20 [id number] Ambulatory [place] 18 [facility] ing:MTLAB Repository 01/03/2018/01/04/20 [id number] [place] 18 [facility] ing:MTLAB Repository 01/03/2018/01/05/20 [id number] Ambulatory [address] Repository 12/05/2017/12/06/19 [id number] Ambulatory BMSBuilding:B [place] [address] [facility] Repository 11/17/2017/11/18/19 [id number] Ambulatory [place] 18 [facility] ing:MTLAB Repository 10/27/2017/10/28/19 [id number] [place] [facility] ing:MTLAB Repository 10/20/2017/10/21/19 [id number] Emergency [place] 18 [facility] ing:ED Repository 09/16/2017 [id number] [facility] [place] [facility]MTLAB Repository 09/13/2017/09/14/19 [id number] Ambulatory [address] Repository 09/02/2017/09/03/19 [id number] [place] 18 [facility] ing:MTLAB Repository 07/29/2017/07/29/19 [id number] Ambulatory [place] 18 [facility] ing:MTLAB Repository 07/28/2017/07/28/19 [id number] Ambulatory BMSBuilding:B [place] [address] [facility] Repository 07/28/2017 [id number] Ambulatory BMSBuilding:B [place] MS[facility] Repository 07/28/2017/07/28/19 [id number] Ambulatory BMSBuilding:B [place] 18 MS.G [facility] Repository PAYERS PAYERS ENCOUNTER GUARANTOR PAYER SUBSCRIBER SOURCE 06/15/2018 EFREN RESENDIZ Primary EFREN RESENDIZ [place] [id number] BACK Insurance:MEDICARE HATTENDOB: [facility] PART [facility] BPolicy Number: [id number] [facility]ers [facility] CenterSASHA [place] [id number] Repository 93083Xko: (330) Date:2018-03-09 () 06/15/2018 Secondary EFREN RESENDIZ [place] Insurance:HUMANA HATTENDOB: [facility] [id number] Hospital Number: Repository [id number] Date:1193-99-28ZL [address] [address]OO: 06/15/2018 Tertiary NOT GIVENUNK [place] Insurance:SELF PAY [facility] Hospital Number: Effective Repository Date:2018-06-09 06/13/2018 EFREN RESENDIZ Primary EFREN RESENDIZ [place] [id number] BACK Insurance:MEDICARE HATTENDOB: [facility] PART A BPolicy Number: [id number] [id number] Repository 27778Fnk: 330) Date:2017-07-15 [phone] () 06/13/2018 Secondary EFREN RESENDIZ [place] Insurance:HUMANA HATTENDOB: [facility] [id number] Hospital Number: Repository [id number] Date:8356-59-19HB [address] [place] [address]PE: 06/13/2018 Tertiary NOT GIVENUNK [place] Insurance:SELF PAY [facility] Hospital Number: Effective Repository Date:2018-06-12 06/09/2018 EFREN RESENDIZ Primary EFREN RESENDIZ [place] [id number] BACK Insurance:MEDICARE HATTENDOB: [facility] PART A BPolicy Number: [id number] Corners Regional Health CenterBECKYMec[place], [place] [id number] Repository 917[address]Cdy: 330) Date:2017-07-15 (HP) 06/09/2018 Secondary EFREN RESENDIZ [place] Insurance:HUMANA HATTENDOB: [facility] [id number] Hospital Number: Repository [id number] Date:3744-79-05CK [address] [address]JG: 06/09/2018 Tertiary NOT GIVENUNK [place] Insurance:SELF PAY [facility] Hospital Number: Effective Repository Date:2018-05-16 05/15/2018 EFREN RESENDIZ Primary EFREN RESENDIZ [place] [id number] BACK Insurance:MEDICARE HATTENDOB: [facility] PART A BPolicy Number: [id number], [place] [id number] Repository 25560Vao: 330) Date:2018-05-02 () 05/15/2018 Secondary EFREN RESENDIZ [place] Insurance:HUMANA HATTENDOB: [facility] [id number] Hospital Number: Repository [id number] Date:0554-42-89YW [address] [address]HJ: 05/15/2018 Tertiary NOT GIVENUNK [place] Insurance:SELF PAY [facility] Hospital Number: Effective Repository Date:2018-05-15 05/15/2018 EFREN RESENDIZ Primary EFREN RESENDIZ [place] [id number] BACK Insurance:MEDICARE HATTENDOB: [facility] PART A BPolicy Number: [id number], [place] [id number] Repository 25357Ykr: 330) Date:2018-05-021299 () 05/15/2018 Secondary EFREN RESENDIZ [place] Insurance:HUMANA HATTENDOB: [facility] [id number] Hospital Number: Repository [id number] Date:7808-89-02WX [address] [address]YG: 05/15/2018 Tertiary NOT GIVENUNK [place] Insurance:SELF PAY [facility] Hospital Number: Effective Repository Date:2018-05-02 05/02/2018 EFREN RESENDIZ Primary EFREN RESENDIZ [place] [id number] BACK Insurance:MEDICARE HATTENDOB: [facility] PART A BPolicy Number: [id number], [place] [id number] Repository 917[address]Bio: (330) Date:2017-07-28 [phone] () 05/02/2018 Secondary EFREN RESENDIZ [place] Insurance:HUMANA HATTENDOB: [facility]CIAL[facility] Systemy [id number] Hospital Number: Repository [id number] Date:1069-83-30AF[address] [address]XC: 05/02/2018 Tertiary NOT GIVENUNK [place] Insurance:SELF PAY [facility] Hospital Number: Effective Repository Date:2018-05-02 04/24/2018 EFREN RESENDIZ Primary EFREN RESENDIZ [place] [id number] BACK Insurance:MEDICARE HATTENDOB: [facility] PART A BPolicy Number: [id number], [place] [id number] Repository [address]Luy: (613) Date:2017-07-15 [phone] () 04/24/2018 Secondary EFREN RESENDIZ [place] Insurance:HUMANA HATTENDOB: [facility] [id number] Hospital Number: Repository [id number] Date:8717-54-12FN[address] [address]TX: 04/24/2018 Tertiary NOT GIVENUNK [place] Insurance:SELF PAY [facility] Hospital Number: Effective Repository Date:2018-04-13 03/23/2018 EFREN RESENDIZ Primary EFREN RESENDIZ [place] [id number] BACK Insurance:MEDICARE HATTENDOB: [facility] PART A BPolicy Number: [id number], [place] [id number] Repository 51103Mpa: (330) Date:2017-07-15 [phone] () 03/23/2018 Secondary EFREN RESENDIZ [place] Insurance:HUMANA HATTENDOB: [facility] COMMERCIALPolicy [id number] Hospital Number: Repository [id number] Date:7453-80-89PF [address] [address]EM: 03/23/2018 Tertiary NOT GIVENUNK [place] Insurance:SELF PAY [facility] Hospital Number: Effective Repository Date:2018-03-14 03/16/2018 EFREN RESENDIZ Primary EFREN RESENDIZ [place] [id number] BACK Insurance:MEDICARE HATTENDOB: [facility] PART A BPolicy Number: [id number], [place] [id number] Repository 343[address]Vkh: (097) Date:2018-03-16 [phone] () 03/16/2018 Secondary EFREN RESENDIZ [place] Insurance:HUMANA HATTENDOB: [facility] [id number] Hospital Number: Repository [id number] Date:3383-89-95SP [address] [address]YQ: 03/16/2018 Tertiary NOT GIVENUNK [place] Insurance:SELF PAY [facility] Hospital Number: Effective Repository Date:2018-03-16 03/09/2018 EFREN RESENDIZ Primary EFREN RESENDIZ [place] [id number] BACK Insurance:MEDICARE HATTENDOB: [facility] PART A BPolicy Number: [id number], [place] [id number] Repository 07791Sln: (395) Date:2018-03-09 [phone] () 03/09/2018 Secondary EFREN RESENDIZ [place] Insurance:HUMANA HATTENDOB: [facility] [id number] Hospital Number: Repository [id number] Date:8608-69-60NF [address] [address]UM: 03/09/2018 Tertiary NOT GIVENUNK [place] Insurance:SELF PAY [facility] Hospital Number: Effective Repository Date:2018-03-09 02/23/2018 EFREN RESENDIZ Primary EFREN RESENDIZ [place] [id number] BACK Insurance:MEDICARE HATTENDOB: [facility] PART A BPolicy Number: [id number], [place] [id number] Repository 81611Iyy: 330) Date:2017-07-15 [phone] () 02/23/2018 Secondary EFREN RESENDIZ [place] Insurance:HUMANA HATTENDOB: [facility] [id number] Hospital Number: Repository [id number] Date:8170-17-28NR[address] [address]DU: 02/23/2018 Tertiary NOT GIVENUNK [place] Insurance:SELF PAY [facility] Hospital Number: Effective Repository Date:2018-02-15 01/24/2018 EFREN RESENDIZ Primary EFREN RESENDIZ [place] [id number] BACK Insurance:MEDICARE HATTENDOB: [facility] PART A BPolicy Number: [id number], [place] [id number] Repository 427[address]Gjq: (045) Date:2017-07-15 [phone] () 01/24/2018 Secondary EFREN RESENDIZ [place] Insurance:HUMANA HATTENDOB: [facility] [id number] Hospital Number: Repository [id number] Date:9401-77-95UA[address] [address]XR: 01/24/2018 Tertiary NOT GIVENUNK [place] Insurance:SELF PAY [facility] Hospital Number: Effective Repository Date:2018-01-13 01/03/2018 EFREN RESENDIZ Primary EFREN RESENDIZ [place] [id number] BACK Insurance:MEDICARE HATTENDOB: [facility] PART A BPolicy Number: [id number], [place] [id number] Repository 54066Hom: (848) Date:2017-07-15 [phone] () 01/03/2018 Secondary EFREN RESENDIZ [place] Insurance:HUMANA HATTENDOB: [facility] [id number] Hospital Number: Repository [id number] Date:8602-10-57HV [address] [place] [address]SK: 01/03/2018 Tertiary NOT GIVENUNK [place] Insurance:SELF PAY [facility] Hospital Number: Effective Repository Date:2017-12-09 12/05/2017 EFREN RESENDIZ Primary EFREN RESENDIZ [place] [id number] BACK Insurance:MEDICARE HATTENDOB: [facility] PART A BPolicy Number: [id number], [place] [id number] Repository 48658Jeq: (904) Date:2017-07-28 [phone] () 12/05/2017 Secondary EFREN RESENDIZ [place] Insurance:HUMANA HATTENDOB: [facility] COMMERCIALPolorange city area health system [id number] Hospital Number: Repository [id number] Date:0447-69-01VO [address] [place] [address]YO: 12/05/2017 Tertiary NOT GIVENUNK [place] Insurance:SELF PAY [facility] Hospital Number: Effective Repository Date:2017-10-26 11/17/2017 EFREN RESENDIZ Primary EFREN RESENDIZ [place] [id number] BACK Insurance:MEDICARE HATTENDOB: [place] PART A BPolicy Number: [id number], [place] [id number] Repository 13398Ywb: (487) Date:2017-07-15 [phone] () 11/17/2017 Secondary EFREN RESENDIZ [place] Insurance:HUMANA HATTENDOB: [facility] Centericy [id number] Hospital Number: Repository [id number] Date:8864-05-54WY [address] [place] [address]KP: 11/17/2017 Tertiary NOT GIVENUNK [place] Insurance:SELF PAY [facility] Hospital Number: Effective Repository Date:2017-11-10 10/27/2017 EFREN RESENDIZ Primary EFREN RESENDIZ [place] [id number] BACK Insurance:MEDICARE HATTENDOB: [place] PART A BPolicy Number: [id number], [place] [id number] Repository 715[address]Wvg: (330) Date:2017-07-15 [phone] () 10/27/2017 Secondary EFREN RESENDIZ [place] Insurance:HUMANA HATTENDOB: [facility] COMM[facility]CIALV[facility] Systemy [id number] Hospital Number: Repository [id number] Date:2613-14-14JI[address] [address]DU: 10/27/2017 Tertiary NOT GIVENUNK [place] Insurance:SELF PAY [facility] Hospital Number: Effective Repository Date:2017-09-12 10/20/2017 EFREN RESENDIZ Primary EFREN RESENDIZ [place] [id number] BACK Insurance:MEDICARE HATTENDOB: [facility] PART A BPolicy Number: [id number], [place] [id number] Repository 509[address]Oia: (495) Date:2017-10-20 [phone] (HP) 10/20/2017 Secondary EFREN RESENDIZ [place] Insurance:HUMANA HATTENDOB: [facility] [id number] Hospital Number: Repository [id number] Date:0523-88-23DU[address] [address]JA: 10/20/2017 Tertiary NOT GIVENUNK [place] Insurance:SELF PAY [facility] Hospital Number: Effective Repository Date:2017-10-20 09/16/2017 EFREN RESENDIZ Primary EFREN RESENDIZ [place] [id number] BACK Insurance:MEDICARE HATTENDOB: [facility] PART A BPolicy Number: [id number], [place] [id number] Repository 05384Srd: 330) Date:2017-09-16 [phone] () 09/16/2017 Secondary EFREN RESENDIZ [place] Insurance:HUMANA HATTENDOB: [facility] COMM[facility]CIALV[facility] Systemy [id number] Hospital Number: Repository [id number] Date:1571-78-16XI[address] [address]US: 09/16/2017 Tertiary NOT GIVENUNK [place] Insurance:SELF PAY [facility] Hospital Number: Effective Repository Date:2017-09-16 09/02/2017 EFREN RESENDIZ Primary EFREN RESENDIZ [place] [id number] BACK Insurance:MEDICARE HATTENDOB: [facility] PART A BPolicy Number: [id number], [place] [id number] Repository 55356Cwd: (044) Date:2017-07-15 [phone] () 09/02/2017 Secondary EFREN RESENDIZ [place] Insurance:HUMANA HATTENDOB: [facility] [id number] Hospital Number: Repository [id number] Date:8066-02-10AZ[address] [address]ZV: 09/02/2017 Tertiary NOT GIVENUNK [place] Insurance:SELF PAY [facility] Hospital Number: Effective Repository Date:2017-08-11 07/29/2017 EFREN RESENDIZ Primary EFREN RESENDIZ [place] [id number] BACK Insurance:MEDICARE HATTENDOB: [facility] PART A BPolicy Number: [id number], [place] [id number] Repository 92859Viw: (480) Date:2017-07-15 [phone] () 07/29/2017 Secondary EFREN RESENDIZ [place] Insurance:HUMANA HATTENDOB: [facility] [id number] Hospital Number: Repository [id number] Date:5333-65-67YA[address] [address]YD: 07/29/2017 Tertiary NOT GIVENUNK [place] Insurance:SELF PAY [facility] Hospital Number: Effective Repository Date:2017-07-15 07/28/2017 EFREN RESENDIZ Primary EFREN RESENDIZ [place] [id number] BACK Insurance:MEDICARE HATTENDOB: [facility] PART A BPolicy Number: [id number], [place] [id number] Repository 45523Fup: (460) Date:2017-06-23 [phone] () 07/28/2017 Secondary EFREN RESENDIZ [place] Insurance:HUMANA HATTENDOB: [facility] COMMERCIALPoly [id number] Hospital Number: Repository [id number] Date:2355-85-10PH [address] [address]MC: 07/28/2017 Tertiary NOT GIVENUNK [place] Insurance:SELF PAY [facility] Hospital Number: Effective Repository Date:2017-06-23 07/28/2017 Efren Resendiz Primary Efren Resendiz [place] [id number] Back Insurance:MEDICARE HattenDOB: [facility] PART A BPolicy Number: [id number], [place] [id number] Repository 82886Bce: (599) Date:2017-05-18 [phone] () 07/28/2017 Secondary Efren Resendiz [place] Insurance:HUMANA HattenDOB: [facility] [id number] Hospital Number: Repository [id number] Date:1326-77-26BK[address] [address]EE: 07/28/2017 Tertiary NOT GIVENUNK [place] Insurance:SELF PAY [facility] Hospital Number: Effective Repository Date:2017-05-18 07/28/2017 EFREN RESENDIZ Primary EFREN RESENDIZ [place] [id number] BACK Insurance:MEDICARE HATTENDOB: [facility] PART A BPolicy Number: [id number], [place] [id number] Repository 99149Def: (383) Date:2017-06-23 [phone] () 07/28/2017 Secondary EFERN RESENDIZ [place] Insurance:HUMANA HATTENDOB: [facility] [id number] Hospital Number: Repository [id number] Date:0246-13-31KX[address] [address]DW: 07/28/2017 Tertiary NOT GIVENUNK [place] Insurance:SELF PAY [facility] Number: Effective Repository Date:2017-06-23
== END 2018-06-09 14:00 | disposition home or self-care (01) ==
LOC: MTLAB 13:43
PROVIDERS: Family Provider Family Medicine; PCP Family Medicine; Referring Provider Internal Medicine Cardiovascular Disease; Visit Provider Internal Medicine Cardiovascular Disease
DX: I48.91 Unspecified atrial fibrillation (principal); I48.92 Unspecified atrial flutter; Z79.01 Long term (current) use of anticoagulants
CPT/HCPCS: 36415; 36416; 85610

== ENCOUNTER 2018-07-12 09:28 | Outpatient (RCR) | payer MEDICARE, OTHER, SELFPAY ==
[2018-05-02 10:14] VITALS: BMI 27.8
[2018-07-12 09:45] LABS: Prothrombin Time Fingerstick 29.1 SEC (11.9-14.4)
== END 2018-07-12 11:00 | disposition home or self-care (01) ==
LOC: MTLAB 09:28
PROVIDERS: Family Provider Family Medicine; PCP Family Medicine; Referring Provider Internal Medicine Cardiovascular Disease; Visit Provider Internal Medicine Cardiovascular Disease
DX: I48.91 Unspecified atrial fibrillation (principal); I48.92 Unspecified atrial flutter; Z79.01 Long term (current) use of anticoagulants
CPT/HCPCS: 36416; 85610

== ENCOUNTER 2018-08-09 10:59 | Outpatient (RCR) | payer MEDICARE, OTHER, SELFPAY ==
[2018-05-02 10:14] VITALS: BMI 27.8
[2018-08-09 11:16] LABS: Prothrombin Time Fingerstick 39.9 SEC (11.9-14.4)
== END 2018-08-10 14:34 | disposition home or self-care (01) ==
LOC: MTLAB 10:59
PROVIDERS: Family Provider Family Medicine; PCP Family Medicine; Referring Provider Internal Medicine Cardiovascular Disease; Visit Provider Internal Medicine Cardiovascular Disease
DX: I48.91 Unspecified atrial fibrillation (principal); I48.92 Unspecified atrial flutter; Z79.01 Long term (current) use of anticoagulants
CPT/HCPCS: 36416; 85610

== ENCOUNTER 2018-08-24 13:13 | Outpatient (RCR) | payer MEDICARE, OTHER, SELFPAY ==
[2018-05-02 10:14] VITALS: BMI 27.8
[2018-08-24 14:21] LABS: International Normalized Ratio 2.5; Prothrombin Time (Protime)PT. 26.6 SECONDS (11.7-14.9)
== END 2018-08-24 14:00 ==
LOC: MTLAB 13:13
PROVIDERS: Family Provider Family Medicine; PCP Family Medicine; Referring Provider Internal Medicine Cardiovascular Disease; Visit Provider Internal Medicine Cardiovascular Disease
DX: I48.91 Unspecified atrial fibrillation (principal); I48.92 Unspecified atrial flutter; Z79.01 Long term (current) use of anticoagulants
CPT/HCPCS: 36415; 85610

== ENCOUNTER 2018-09-26 07:55 | Outpatient (RCR) | payer MEDICARE, OTHER, SELFPAY ==
[2018-05-02 10:14] VITALS: BMI 27.8
[2018-09-12 10:14] LABS: AST(SGOT) 25 U/L (15-37); Alanine Aminotransfer ALT/SGPT 26 U/L (13-56); Albumin, Serum 3.4 g/dL (3.2-5.0); Alkaline Phosphatase 49 U/L (45-117); Bilirubin, Direct 0.13 mg/dL (0.00-0.30); Cholesterol 132 mg/dL (200); Globulin 3.3 g/dL (2.2-4.2); High Density Lipoprotein 56 mg/dL; Protein, Total 6.7 g/dL (6.4-8.2); Triglycerides 130 mg/dL; Very Low Density Lipoprotein 26 mg/dL (5-40)
[2018-09-26 10:12] LABS: Anion Gap 5 (5-15); BUN 19 mg/dL (7-18); BUN/Creat Ratio 19.2 RATIO (10-20); Calcium,Total 8.8 mg/dL (8.5-10.1); Chloride 105 mmol/L (98-107); Creatinine, Serum 0.99 mg/dL (0.55-1.02); EST Glomerular Filtration Rate 59 mL/min (>60); Est Glom Filt Rate - Afr Amer 71 mL/min (>60); Glucose 101 mg/dL (74-106); Potassium 4.2 mmol/L (3.5-5.1); Sodium Level 137 mmol/L (136-145)
[2018-09-26 10:25] LABS: Prothrombin Time (Protime)PT. 22.8 SECONDS (11.7-14.9)
[2018-09-26 10:31] LABS: Hemoglobin A1c 6.7 % (4.2-6.3)
== END 2018-10-10 16:00 | disposition home or self-care (01) ==
LOC: MTLAB 07:55
PROVIDERS: Nurse Practitioner Family; Family Provider Family Medicine; PCP Family Medicine; Referring Provider Family Medicine; Visit Provider Family Medicine
DX: E78.5 Hyperlipidemia, unspecified (principal)
CPT/HCPCS: 36415; 80048; 80061; 80076; 83036; 85610

== ENCOUNTER 2018-10-26 15:22 | Outpatient (RCR) | payer MEDICARE, OTHER, SELFPAY ==
[2018-05-02 10:14] VITALS: BMI 27.8
[2018-10-26 15:51] LABS: Prothrombin Time Fingerstick 26.6 SEC (11.9-14.4)
== END 2018-10-26 17:00 | disposition home or self-care (01) ==
LOC: MTLAB 15:22
PROVIDERS: Family Provider Family Medicine; PCP Family Medicine; Referring Provider Family Medicine; Visit Provider Family Medicine
DX: I48.91 Unspecified atrial fibrillation (principal)
CPT/HCPCS: 36416; 85610

== ENCOUNTER → 2018-10-30 08:08 | Outpatient (CLI) | payer MEDICARE, OTHER, SELFPAY ==
[2018-05-02 10:14] VITALS: BMI 27.8
--- NOTE | 2018-10-30 08:13 | RAD_ITS ---
STUDY: X-RAY - ESOPHAGUS (BARIUM SWALLOW) WITH FLUOROSCOPY REASON FOR EXAM: Female, 67 years old. Dysphagia. TECHNIQUE: 22 fluoroscopic view(s) of the esophagus were obtained following swallowing of barium. FLUOROSCOPY TIME (if supplied): (0:40) minutes/seconds COMPARISON: None. FINDINGS: There is no demonstrated esophageal foreign body. There is no demonstrated stricture or mucosal abnormality. Normal gastroesophageal junction, without a demonstrated hiatal hernia. The patient ingested a 12 mm tablet of barium without any difficulty. There is atherosclerotic tortuosity of the aortic arch and descending thoracic aorta. Normal visualized pulmonary parenchyma. Normal visualized osseous structures of the thorax. RAD/Esophagus Only IMPRESSION: Normal plain film x-ray examination (barium swallow) of the esophagus. Electronically Signed: Enrike Cisse, at 14:55 EDT , Service support ,
== END ==
PROVIDERS: Family Provider Family Medicine; PCP Family Medicine; Referring Provider Family Medicine; Visit Provider Family Medicine
DX: R13.10 Dysphagia, unspecified (principal)
CPT/HCPCS: 74220

== ENCOUNTER 2018-12-01 15:17 | Outpatient (RCR) | payer MEDICARE, OTHER, SELFPAY ==
[2018-11-01 09:29] VITALS: BMI 27.8
[2018-12-01 15:36] LABS: Prothrombin Time Fingerstick 29.9 SEC (11.9-14.4)
== END 2018-12-01 15:30 | disposition home or self-care (01) ==
LOC: MTLAB 15:17
PROVIDERS: Family Provider Family Medicine; PCP Family Medicine; Referring Provider Family Medicine; Visit Provider Family Medicine
DX: I48.91 Unspecified atrial fibrillation (principal)
CPT/HCPCS: 36416; 85610

== ENCOUNTER 2019-01-01 15:32 | Outpatient (RCR) | payer MEDICARE, OTHER, SELFPAY ==
[2018-11-01 09:29] VITALS: BMI 27.8
[2019-01-01 15:45] LABS: Prothrombin Time Fingerstick 28.9 SEC (11.9-14.4)
== END 2019-01-10 16:04 | disposition home or self-care (01) ==
LOC: MTLAB 15:32
PROVIDERS: Family Provider Family Medicine; PCP Family Medicine; Referring Provider Family Medicine; Visit Provider Family Medicine
DX: I48.91 Unspecified atrial fibrillation (principal)
CPT/HCPCS: 36416; 85610

== ENCOUNTER → 2019-01-26 10:23 | Outpatient (CLI) | payer MEDICARE, OTHER, SELFPAY ==
[2019-01-26 09:03] VITALS: BMI 27.8
[2019-01-26 10:33] LABS: Bacteria 0 SEEN /hpf (None Seen); Mucous, Urine 0 SEEN /hpf (<or=2+); Red Blood Cells-Urine 0 SEEN /hpf (0-5); Squamous Epithelial Cells - UA 0 SEEN /hpf (5-10)
[2019-01-26 11:29] LABS: Color, Urine Yellow (Yellow); Glucose, Dipstick Normal (Normal); Hemoglobin 11.2 g/dL (12.0-15.0); Ketone-Dipstick Negative (Negative); Leukocyte Esterase-Dipstick 25 /ul (Negative); Mean Corp Hgb Conc 31.1 g/dL (32-36); Mean Corpuscular Hgb 29.2 pg (27.0-32.0); Mean Corpuscular Volume 93.8 fL (81-99); Mean Platelet Vol. 9.8 fl (6.2-12.0); Nitrite-Dipstick Negative (Negative); Occult Blood-Urine Negative /ul (Negative); Platelet Count 244 K/mm3 (150-450); Protein-Dipstick Negative (Negative); RBC Distribution Width CV 15.8 % (11.6-14.6); RBC Distribution Width SD 54.2 fl (35.1-43.9); Red Blood Count 3.84 M/mm3 (4.2-5.4); Urine Bilirubin Dipstick Negative (Negative); Urine Clarity Clear (Clear); Urine Urobilinogen Normal (Normal)
[2019-01-26 11:36] LABS: White Blood Cells 0-5 SEEN /hpf (0-5)
[2019-01-26 11:37] LABS: International Normalized Ratio 2.7; Prothrombin Time (Protime)PT. 28.7 SECONDS (11.7-14.9)
[2019-01-26 11:51] LABS: Anion Gap 5 (5-15); BUN 23 mg/dL (7-18); BUN/Creat Ratio 23.6 RATIO (10-20); Calcium,Total 9.2 mg/dL (8.5-10.1); Chloride 104 mmol/L (98-107); Creatinine, Serum 0.98 mg/dL (0.55-1.02); EST Glomerular Filtration Rate 60 mL/min (>60); Est Glom Filt Rate - Afr Amer 73 mL/min (>60); Glucose 115 mg/dL (74-106); Potassium 4.2 mmol/L (3.5-5.1); Sodium Level 137 mmol/L (136-145)
== END ==
PROVIDERS: Family Provider Family Medicine; PCP Family Medicine; Referring Provider Internal Medicine Cardiovascular Disease; Visit Provider Internal Medicine Cardiovascular Disease
DX: I49.5 Sick sinus syndrome (principal); I48.0 Paroxysmal atrial fibrillation; Z95.0 Presence of cardiac pacemaker; I43 Cardiomyopathy in diseases classified elsewhere; I51.9 Heart disease, unspecified; I48.92 Unspecified atrial flutter; I47.1 Supraventricular tachycardia; Z79.01 Long term (current) use of anticoagulants
CPT/HCPCS: 36415; 80048; 81001; 85027; 85610

== ENCOUNTER 2019-02-01 09:29 | Day surgery (SDC) | payer MEDICARE, OTHER, SELFPAY ==
[2018-11-01 09:29] VITALS: BMI 27.8
[2019-01-26 09:03] VITALS: BMI 27.8
--- NOTE | 2019-01-26 09:56 | HP_ITS ---
HPI HPI History of Present Illness Surgical H&P: Yes Details: Details: EFREN GRIFFIN, is a 68 F who presents to the office today for an updated history and physical for an ICD generator change that is scheduled for next week with Dr. Bean. She has a history of atrial fibrillation/flutter post right-sided ablation with repeat ablation in 2009. She also has a history of hypertension and diabetes. She had a pacemaker placed with [employer] due to a low ejection fraction. Echocardiogram in 2010 demonstrated preserved ejection fraction of 55%. From a cardiac standpoint, patient is doing well. She does not have any chest discomfort/heaviness/tightness. Her exercise tolerance is stable for her age. She does not have any worsening symptoms of shortness of breath. She does not have any orthopnea. She denies PND. She does not have any symptoms of congestive heart failure. She does not have any palpitations that she is aware of. She does not have any lightheadedness or dizziness. She does not have any near-syncope or syncope. She does not have any lower extremity edema. She does not have any symptoms of claudication. . Intake Vital Signs 01/26/19 Blood Pressure 140/80 H 01/26/19 Height 5 ft 4 in 01/26/19 Weight: 162 lb 01/26/19 Body Mass Index (BMI) 27.8 01/26/19 Blood Pressure 147/90 H 01/26/19 Blood Pressure Location Lt brachial 01/26/19 Respiratory Rate 18 01/26/19 Pulse Rate 87 01/26/19 Pulse Source Monitor 01/26/19 Pulse Ox 97 Intake Visit Reasons: H & P for gen change 02-01 w/Vikas; Rosemarie @ 9 Saw Runner Required: No Accompanied by: none Is patient in pain?: No Allergies esomeprazole [From Nexium] Adverse Reaction (Severe, Verified 01/26/19 09:03) Hives meperidine [From Demerol] Adverse Reaction (Severe, Verified 01/26/19 09:03) Unknown povidone-iodine [From Betadine] Adverse Reaction (Severe, Verified 01/26/19 09:03) Unknown soap [From Betadine] Adverse Reaction (Severe, Verified 01/26/19 09:03) Unknown acetaminophen [From Darvocet-N] Adverse Reaction (Intermediate, Verified 01/26/19 09:03) Unknown propoxyphene [From Darvocet-N] Adverse Reaction (Intermediate, Verified 01/26/19 09:03) Unknown hydrocodone [From Vicodin] Adverse Reaction (Mild, Verified 01/26/19 09:03) Nausea, headache oxycodone [From Percocet] Adverse Reaction (Mild, Verified 01/26/19 09:03) Nausea Medications acetaminophen 500 mg tablet 500 mg PO .Take As Directed tab 07/07/17 [History Confirmed 01/26/19] aspirin 81 mg tablet,delayed release 81 mg PO QDAY 07/07/17 [History Confirmed 01/26/19] hydrochlorothiazide 50 mg tablet 50 mg PO QDAY 07/07/17 [History Confirmed 01/26/19] metformin 500 mg tablet See Rx Instructions PO BID 07/07/17 [History Confirmed 01/26/19] pioglitazone 45 mg tablet 45 mg PO QDAY 07/07/17 [History Confirmed 01/26/19] cinnamon bark 500 mg capsule mg PO 07/28/17 [History Confirmed 01/26/19] glucosamine 750 [id number]-muy no1 644 mg-C 30 mg-nia 1 mg tablet tab PO 07/28/17 [History Confirmed 01/26/19] magnesium 400 mg (as magnesium oxide) capsule 400 mg PO QDAY cap 07/28/17 [History Confirmed 01/26/19] multivitamin tablet 1 tab PO QAM 07/28/17 [History Confirmed 01/26/19] warfarin 1 mg tablet PO 90 Days #45 07/28/17 [History Confirmed 01/26/19] warfarin 3 mg tablet 3 mg PO QDAY #90 tab 03/14/18 [Rx Confirmed 11/01/18] sotalol 160 mg tablet 160 mg PO BID #180 tab 07/31/18 [Rx Confirmed 01/26/19] simvastatin 20 mg tablet 20 mg PO QHS #90 tab 08/21/18 [Rx Confirmed 01/26/19] losartan 100 mg tablet 100 mg PO QDAY #90 tab 12/13/18 [Rx Confirmed 01/26/19] [facility] Medical History Sick sinus syndrome (Chronic) Paroxysmal atrial fibrillation (Chronic) Essential (primary) hypertension (Chronic) Secondary pulmonary arterial hypertension (Chronic) Diastolic dysfunction (Chronic) Cardiomyopathy in other diseases classified elsewhere (Resolved) Hyperlipidemia (Chronic) Atrial flutter (Chronic) Supraventricular tachycardia (Chronic) Type 2 diabetes mellitus (Chronic) Cardiomyopathy in diseases classified elsewhere (Resolved) Syncope and collapse (Resolved) Surgical History Presence of permanent cardiac pacemaker (Chronic 11/14/10) History of radiofrequency ablation procedure for cardiac arrhythmia (Resolved) Family History Father Hypertension Renal failure Mother Diabetes Hypertension HLD (hyperlipidemia) Lupus MVP (mitral valve prolapse) Brother Cancer Spine Cancer Sister Hypertension GERD (gastroesophageal reflux disease) Social History (Updated 01/26/19 @ 10:00 by GALA Bobby) Smoking Status: Never smoker alcohol intake: current Alcohol type: hard liquor substance use type: does not use seatbelt use: always ROS Const Const: Negative for fatigue, weakness, fever(s) or headache(s) Eyes Eyes: Negative for blind spots, loss of peripheral vision or transient loss of vision ENT ENT: Negative for headache(s) Cardio Chest Pain: No Edema: None Muscle aches with walking: None Resp Respiratory: Negative for SOB with activity, SOB at rest or SOB orthopnea\SOB lying down GI GI: Negative nausea, vomiting, heartburn or vomiting blood/hematemesis : Negative for hematuria Musc Musc: Negative for muscle aches/ myalgia Neuro Neuro: Negative for headache(s) or weakness Oseas Hematologic/Lymphatic: Negative for easy bleeding Endo Endo: Negative for fatigue Cardiology Exam Const Appearance: cooperative, no acute distress and well developed Orientation: alert, awake and oriented x3 Head Head: normocephalic and atraumatic Mouth: moist mucous membranes Eyes General: appearance normal, both eyes and all related structures Conjunctivae: conjunctivae normal Pupils: PERRL EOM: EOM intact bilaterally Neck Neck: normal visual inspection, no lymphadenopathy and no JVD Carotids: Negative bruit Neck Mass: Negative Neck mass Chest Chest inspection: normal inspection of the chest, symmetric chest movement and Pacemaker/ICD Yes left pectoral incision Auscultation: Bilateral: Clear to Auscultation Cardio Palpation: normal PMI Rate: regular rate Rhythm: regular rhythm Heart sounds: S1 normal and S2 normal; negative rub, gallop or murmur GI GI: normal to inspection, soft, no hepatosplenomegaly and bowel sounds present; negative tender Neuro General: alert, awake, oriented x3, CN's II-XI intact bilaterally and moves all extremities Extremities Pulses: Normal: Right Posterior Tibial Pulse, Left Posterior Tibial Pulse, Right Radial Pulse, Left Radial Pulse Lower Extremity Edema: None: Bilateral Psych Psychological: normal affect Assessment & Plan 1. Cardiomyopathy in other diseases classified elsewhere I43 Plan This is since resolved. We will continue to monitor with periodic echocardiograms. 2. Essential hypertension I10 Plan Blood pressure is slightly elevated today upon recheck it did improve however patient states that she has not taken her medications yet this morning. She states at home they are normotensive. 3. Paroxysmal atrial fibrillation I48.0 Plan This is continue to be monitored through her pacemaker. She is not on any rate limiting medication. She is anticoagulated with Coumadin with a therapeutic INR goal of 2-3. Orders Orders: 12 Lead EKG performed by [facility] Today 4. Presence of permanent cardiac pacemaker Z95.0 11/14/2010, Biventricular pacemaker placed Plan Device has reached ANDREW. She is scheduled to have her pacemaker [employer] device changed out next week. 5. Pure hypercholesterolemia E78.00 Plan Recent lipid profile demonstrates total cholesterol 132, HDL 56, LDL 50. Patient will continue with current moderate intensity statin. Plan Detail Additional Comments Thank you for allowing us to participate in patient's plan of care, if you have any questions please do not hesitate to call. This note was generated using a voice recognition system and there may be incorrect words, spelling or punctuation errors that were not noted when reviewing the office note prior to saving. Follow Up 01/26/19 (keep as is) Coding Level of Care Code Off vis,est,level 3 Diagnoses Cardiomyopathy in other diseases classified elsewhere I43 Essential hypertension I10 Paroxysmal atrial fibrillation I48.0 Presence of permanent cardiac pacemaker Z95.0 Pure hypercholesterolemia E78.00 ??Hyperlipidemia type: pure hypercholesterolemia Coding Level of Care Code Off vis,est,level 3 Diagnoses Cardiomyopathy in other diseases classified elsewhere I43 Essential hypertension I10 Paroxysmal atrial fibrillation I48.0 Presence of permanent cardiac pacemaker Z95.0 Pure hypercholesterolemia E78.00 ??Hyperlipidemia type: pure hypercholesterolemia Supplemental Info Supplemental Information Echocardiogram in 2018: Normal LV size. Left ventricular systolic function is normal. The estimated ejection fraction is 60 %. Transmitral diastolic flow velocities suggest severe (stage 3) diastolic dysfunction Mild (1+) tricuspid valve insufficiency. Labs LDL Cholesterol 50 mg/dL (0-130) 09/12/18 HDL Cholesterol 56 mg/dL (40-) 09/12/18 Triglycerides 130 mg/dL (-199) 09/12/18 VLDL Cholesterol 26 mg/dL (5-40) 09/12/18 Diagnostics Electrocardiogram 01/26/19 Echocardiogram 05/15/18 Pacemaker Check 12/18/18 Venous Doppler Study 10/20/17 01/26/19 1000 <Electronically signed by Yoanna Rangel> Date _ Yoanna CEDEÑO
--- NOTE | 2019-01-26 10:07 | RAD_ITS ---
STUDY: X-RAY CHEST REASON FOR EXAM: Female, 68 years old. Generator change. TECHNIQUE: PA and lateral views of the chest. COMPARISON: None. FINDINGS: There is no focal consolidation. No pneumothorax is visualized. There is a cardiac pacer device in place. Normal size heart. Normal mediastinum and omar. Normal visualized pulmonary arteries. Normal visualized aortic arch and descending thoracic aorta. Normal visualized thoracic spine. Normal visualized ribs, clavicles, and shoulders. There is no demonstrated abnormality of the visualized soft tissue structures of the upper abdomen. RAD/Chest PA and Lateral IMPRESSION: No acute cardiopulmonary process. Electronically Signed: Suha Loco MD at 18:44 EDT Tel , Service support ,
[2019-02-01 10:01] VITALS: BMI 28.8
--- NOTE | 2019-02-01 11:10 | OP.PCM_ITS ---
Report of Operation Date of Procedure: 02/01/19 Description of Surgical Findings:: Preoperative diagnosis is device at end of life for normal battery depletion. Postoperative diagnosis same as above. After informed consent and IV antibiotics the patient was brought to the [facility] catheterization laboratory and the skin over the device was prepped and draped in the usual sterile manner. Intermittent boluses of Versed, and fentanyl were used for sedation and analgesia as well as 1% subcutaneous lidocaine. An incision was made over the pre-existing device. Using blunt and Bovie dissection the pocket was opened and the device was removed. Careful attention was paid not to injure the pre-existing leads. The leads were removed from the device header and they were interrogated. There is normal lead function. Hemostasis was obtained. The pocket was flushed with antibiotic solution. The sponge and needle count were correct. The new device was brought to the field. The leads were placed in the appropriate position in the header and secured by the set screw. The leads and the device were then placed in the pocket. The pocket was closed with a deep layer of running 2-0 Vicryl, a superficial layer of running 4-0 Vicryl, skin with Steri-Strips which were covered with a rolled 4 x 4 and Tegaderm. Patient left the room with the device programmed to proper parameters and there were no complications. The device is a biventricular pacemaker with normal RA, RV and LV lead parameters. All lead parameters were tested and found to be functionally normal. Lead and device serial and model numbers are available in the chart documents provided by the device company insurance verification representative procedure summary.
== END 2019-02-01 12:30 | disposition home or self-care (01) ==
LOC: CLSP 09:30
PROVIDERS: Family Provider Family Medicine; PCP Family Medicine; Referring Provider Internal Medicine Cardiovascular Disease; Visit Provider Internal Medicine Cardiovascular Disease
DX: I48.0 Paroxysmal atrial fibrillation (principal); I43 Cardiomyopathy in diseases classified elsewhere; I10 Essential (primary) hypertension; E78.00 Pure hypercholesterolemia, unspecified; I07.1 Rheumatic tricuspid insufficiency; I27.21 Secondary pulmonary arterial hypertension; E78.5 Hyperlipidemia, unspecified; E11.9 Type 2 diabetes mellitus without complications; I48.92 Unspecified atrial flutter; Z95.0 Presence of cardiac pacemaker
CPT/HCPCS: 33229; 36416; 71046; 85610; 99152; 99153; J7040; J7050

== ENCOUNTER 2019-03-09 07:25 | Outpatient (RCR) | payer MEDICARE, OTHER, SELFPAY ==
[2018-11-01 09:29] VITALS: BMI 27.8
[2019-03-09 10:04] LABS: International Normalized Ratio 2.5; Prothrombin Time (Protime)PT. 26.9 SECONDS (11.7-14.9)
[2019-03-09 10:21] LABS: Hemoglobin A1c 6.6 % (4.2-6.3)
[2019-03-09 10:45] LABS: AST(SGOT) 22 U/L (15-37); Alanine Aminotransfer ALT/SGPT 22 U/L (13-56); Albumin, Serum 3.5 g/dL (3.2-5.0); Alkaline Phosphatase 66 U/L (45-117); Anion Gap 5 (5-15); BUN 21 mg/dL (7-18); BUN/Creat Ratio 20.4 RATIO (10-20); Bilirubin, Direct 0.14 mg/dL (0.00-0.30); Calcium,Total 9.1 mg/dL (8.5-10.1); Chloride 103 mmol/L (98-107); Cholesterol 117 mg/dL (200); Creatinine, Serum 1.03 mg/dL (0.55-1.02); EST Glomerular Filtration Rate 56 mL/min (>60); Est Glom Filt Rate - Afr Amer 68 mL/min (>60); Globulin 3.4 g/dL (2.2-4.2); Glucose 113 mg/dL (74-106); High Density Lipoprotein 67 mg/dL; Potassium 4.4 mmol/L (3.5-5.1); Protein, Total 6.9 g/dL (6.4-8.2); Sodium Level 139 mmol/L (136-145); Triglycerides 114 mg/dL; Very Low Density Lipoprotein 23 mg/dL (5-40)
== END 2019-03-09 18:00 | disposition home or self-care (01) ==
LOC: MTLAB 07:25
PROVIDERS: Internal Medicine Cardiovascular Disease; Family Provider Family Medicine; PCP Family Medicine; Referring Provider Family Medicine; Visit Provider Family Medicine
DX: I48.91 Unspecified atrial fibrillation (principal); E78.5 Hyperlipidemia, unspecified; I10 Essential (primary) hypertension; E11.9 Type 2 diabetes mellitus without complications
CPT/HCPCS: 36415; 80048; 80061; 80076; 83036; 85610

== ENCOUNTER → 2019-03-27 10:52 | Outpatient (CLI) | payer MEDICARE, OTHER, SELFPAY ==
[2019-03-27 10:58] LABS: Mucous, Urine 0 SEEN /hpf (<or=2+)
[2019-03-27 12:26] LABS: Absolute Lymphocyte Count 1.14 X10^3/uL (0.83-4.51); Absolute Neutrophil Count 2.6 X10^3/uL (2.0-7.7); Basophil# 0.06 X10^3/uL; Basophil% 1.3 % (0-1); Eosinophil# 0.18 X10^3/uL; Eosinophils% 3.9 % (0-5); Hemoglobin 11.4 g/dL (12.0-15.0); Lymphocyte # 1.14 X10^3/ul (4.0); Lymphocyte % 24.6 % (19-41); Mean Corp Hgb Conc 31.7 g/dL (32-36); Mean Corpuscular Hgb 29.7 pg (27.0-32.0); Mean Corpuscular Volume 93.8 fL (81-99); Mean Platelet Vol. 9.7 fl (6.2-12.0); NRBC Flagged by Analyzer 0 % (0-5); Neutrophil # 2.63 X10^3/uL (2.7-7.7); Neutrophil % 56.8 % (47-70); Platelet Count 307 K/mm3 (150-450); RBC Distribution Width CV 15.8 % (11.6-14.6); Red Blood Count 3.84 M/mm3 (4.2-5.4); White Blood Count 4.6 K/mm3 (4.4-11.0)
[2019-03-27 12:29] LABS: Color, Urine Yellow (Yellow); Glucose, Dipstick Normal (Normal); Ketone-Dipstick 5 mg/dl (Negative); Leukocyte Esterase-Dipstick Negative /ul (Negative); Nitrite-Dipstick Negative (Negative); Occult Blood-Urine Negative /ul (Negative); Protein-Dipstick Negative (Negative); Urine Bilirubin Dipstick Negative (Negative); Urine Clarity Clear (Clear); Urine Urobilinogen Normal (Normal)
[2019-03-27 12:38] LABS: Bacteria RARE /hpf (None Seen); Red Blood Cells-Urine 0-5 SEEN /hpf (0-5); Squamous Epithelial Cells - UA 0-5 SEEN /hpf (5-10); White Blood Cells 0-5 SEEN /hpf (0-5)
[2019-03-27 12:43] LABS: Microalbumin:Creatinine Ratio 14.3 mg/g CRE (<30 mg/g CRE)
[2019-03-27 12:59] LABS: Vitamin B12 1389 pg/mL (211-911)
[2019-03-27 13:07] LABS: AST(SGOT) 31 U/L (15-37); Alanine Aminotransfer ALT/SGPT 29 U/L (13-56); Albumin, Serum 3.6 g/dL (3.2-5.0); Alkaline Phosphatase 63 U/L (45-117); Anion Gap 6 (5-15); BUN 20 mg/dL (7-18); BUN/Creat Ratio 19.8 RATIO (10-20); Calcium,Total 8.9 mg/dL (8.5-10.1); Chloride 104 mmol/L (98-107); Creatinine, Serum 1.01 mg/dL (0.55-1.02); EST Glomerular Filtration Rate 58 mL/min (>60); Est Glom Filt Rate - Afr Amer 70 mL/min (>60); Ferritin 15 ng/mL (8-252); Globulin 3.6 g/dL (2.2-4.2); Glucose 115 mg/dL (74-106); Iron 67 ug/dL (50-170); Iron Binding Capacity,Total 425 ug/dL (250-450); Magnesium 1.4 mg/dL (1.6-2.6); Potassium 4.2 mmol/L (3.5-5.1); Protein, Total 7.2 g/dL (6.4-8.2); Sodium Level 139 mmol/L (136-145); Thyroid Stim Hormone (TSH) 1.53 uIU/mL (0.358-3.74)
[2019-03-30 16:13] LABS: Vitamin B1, Thiamine 176.7 nmol/L (66.5-200.0)
== END ==
PROVIDERS: Family Provider Family Medicine; PCP Family Medicine; Referring Provider Family Medicine; Visit Provider Family Medicine
DX: D64.9 Anemia, unspecified (principal); I48.91 Unspecified atrial fibrillation; E11.9 Type 2 diabetes mellitus without complications; G62.9 Polyneuropathy, unspecified
CPT/HCPCS: 36415; 80053; 81001; 82043; 82570; 82607; 82728; 82746; 83540; 83550; 83735; 84425; 84443; 85025

== ENCOUNTER 2019-04-10 16:30 | Outpatient (RCR) | payer MEDICARE, OTHER, SELFPAY | END 2019-04-10 18:00 | disposition home or self-care (01) | LOC: MTLAB 16:30 | PROVIDERS: Family Provider Family Medicine; PCP Family Medicine; Referring Provider Family Medicine; Visit Provider Family Medicine | DX: I48.91 Unspecified atrial fibrillation (principal) | CPT/HCPCS: 36416; 85610 ==

== ENCOUNTER 2019-04-25 14:34 | Outpatient (RCR) | payer MEDICARE, OTHER, SELFPAY ==
[2019-04-25 14:46] LABS: Prothrombin Time Fingerstick 21.4 SEC (11.9-14.4)
== END 2019-04-25 18:00 | disposition home or self-care (01) ==
LOC: MTLAB 14:34
PROVIDERS: Family Provider Family Medicine; PCP Family Medicine; Referring Provider Internal Medicine Cardiovascular Disease; Visit Provider Internal Medicine Cardiovascular Disease
DX: I48.0 Paroxysmal atrial fibrillation (principal)
CPT/HCPCS: 36416; 85610

== ENCOUNTER → 2019-05-08 11:27 | Outpatient (CLI) | payer MEDICARE, OTHER, SELFPAY ==
[2019-05-08 12:59] LABS: International Normalized Ratio 3.3; Prothrombin Time (Protime)PT. 33.8 SECONDS (11.7-14.9)
[2019-05-08 13:22] LABS: Anion Gap 7 (5-15); BUN 16 mg/dL (7-18); Calcium,Total 9.1 mg/dL (8.5-10.1); Chloride 100 mmol/L (98-107); Creatinine, Serum 0.89 mg/dL (0.55-1.02); EST Glomerular Filtration Rate 67 mL/min (>60); Est Glom Filt Rate - Afr Amer 81 mL/min (>60); Glucose 99 mg/dL (74-106); Magnesium 1.5 mg/dL (1.6-2.6); Potassium 3.8 mmol/L (3.5-5.1); Sodium Level 137 mmol/L (136-145)
== END ==
PROVIDERS: Internal Medicine Cardiovascular Disease; Family Provider Family Medicine; PCP Family Medicine; Referring Provider Family Medicine; Visit Provider Family Medicine
DX: E83.42 Hypomagnesemia (principal); N18.3 Chronic kidney disease, stage 3 (moderate); I48.0 Paroxysmal atrial fibrillation
CPT/HCPCS: 36415; 80048; 83735; 85610

== ENCOUNTER 2019-05-30 16:32 | Outpatient (RCR) | payer MEDICARE, OTHER, SELFPAY ==
[2019-05-21 15:07] VITALS: BMI 27.8
[2019-05-30 16:45] LABS: Prothrombin Time Fingerstick 43.8 SEC (11.9-14.4)
[2019-05-30 17:51] LABS: Prothrombin Time (Protime)PT. 37.4 SECONDS (11.7-14.9)
[2019-05-30 17:55] LABS: International Normalized Ratio 3.8
== END 2019-05-30 18:00 | disposition home or self-care (01) ==
LOC: MTLAB 16:32
PROVIDERS: Family Provider Family Medicine; PCP Family Medicine; Referring Provider Internal Medicine Cardiovascular Disease; Visit Provider Internal Medicine Cardiovascular Disease
DX: I48.0 Paroxysmal atrial fibrillation (principal)
CPT/HCPCS: 36415; 36416; 85610

== ENCOUNTER 2019-06-19 06:26 | Day surgery (SDC) | payer MEDICARE, OTHER, SELFPAY ==
--- NOTE | 2019-05-21 06:20 | HP_ITS ---
Intake Vital Signs 05/21/19 Height 5 ft 4 in 05/21/19 Weight: 162 lb 05/21/19 Body Mass Index (BMI) 27.8 05/21/19 Blood Pressure 138/83 H 05/21/19 Blood Pressure Location Rt brachial 05/21/19 Blood Pressure Position Sitting 05/21/19 Respiratory Rate 18 05/21/19 Body Mass Index (BMI) 28.8 Intake Visit Reasons: DYSPHAGIA/NEEDS EGD Chief Complaint: Follow up visit Sanitary Chemist Required: No Is patient in pain?: No Allergies esomeprazole [From Nexium] Adverse Reaction (Severe, Verified 05/21/19 15:07) Hives meperidine [From Demerol] Adverse Reaction (Severe, Verified 05/21/19 15:07) Unknown povidone-iodine [From Betadine] Adverse Reaction (Severe, Verified 05/21/19 15:07) Unknown soap [From Betadine] Adverse Reaction (Severe, Verified 05/21/19 15:07) Unknown acetaminophen [From Darvocet-N] Adverse Reaction (Intermediate, Verified 05/21/19 15:07) Unknown propoxyphene [From Darvocet-N] Adverse Reaction (Intermediate, Verified 05/21/19 15:07) Unknown hydrocodone [From Vicodin] Adverse Reaction (Mild, Verified 05/21/19 15:07) Nausea, headache oxycodone [From Percocet] Adverse Reaction (Mild, Verified 05/21/19 15:07) Nausea Medications acetaminophen 500 mg tablet 500 mg PO .Take As Directed tab 07/07/17 [History Confirmed 01/30/19] aspirin 81 mg tablet,delayed release 81 mg PO QDAY 07/07/17 [History Confirmed 05/21/19] hydrochlorothiazide 50 mg tablet 50 mg PO QDAY 07/07/17 [History Confirmed 05/21/19] metformin 500 mg tablet See Rx Instructions PO BID 07/07/17 [History Confirmed 05/21/19] pioglitazone 45 mg tablet 45 mg PO QDAY 07/07/17 [History Confirmed 05/21/19] cinnamon bark 500 mg capsule 1 cap PO QODAY 07/28/17 [History Confirmed 05/21/19] glucosamine 750 cm-tgsgrjgnkwt-ymw no1 644 mg-C 30 mg-nia 1 mg tablet 1 tab PO QODAY 07/28/17 [History Confirmed 05/21/19] magnesium 400 mg (as magnesium oxide) capsule 400 mg PO QDAY cap 07/28/17 [History Confirmed 05/21/19] multivitamin tablet 1 tab PO QAM 07/28/17 [History Confirmed 05/21/19] sotalol 160 mg tablet 160 mg PO BID #180 tab 07/31/18 [Rx Confirmed 05/21/19] simvastatin 20 mg tablet 20 mg PO QHS #90 tab 08/21/18 [Rx Confirmed 05/21/19] losartan 100 mg tablet 100 mg PO QDAY #90 tab 12/13/18 [Rx Confirmed 05/21/19] warfarin 3 mg tablet 3 mg PO QDAY #90 tab 03/28/19 [Rx Confirmed 05/21/19] omega-3 fatty acids 1,000 mg capsule 1,000 mg PO DAILY 05/21/19 [History Confirmed 05/21/19] [facility] Medical History (Updated 05/21/19 @ 18:18 by Srinivas Ennis MD) Dysphasia (Acute) Sick sinus syndrome (Chronic) Paroxysmal atrial fibrillation (Chronic) Essential (primary) hypertension (Chronic) Secondary pulmonary arterial hypertension (Chronic) Diastolic dysfunction (Chronic) Cardiomyopathy in other diseases classified elsewhere (Resolved) Hyperlipidemia (Chronic) Atrial flutter (Chronic) Supraventricular tachycardia (Chronic) Type 2 diabetes mellitus (Chronic) Cardiomyopathy in diseases classified elsewhere (Resolved) Syncope and collapse (Resolved) Surgical History Presence of permanent cardiac pacemaker (Chronic 11/14/10) History of thumb surgery (Acute) S/P hysterectomy (Acute) S/P right knee surgery (Acute) Status post right foot surgery (Acute) History of radiofrequency ablation procedure for cardiac arrhythmia (Resolved) Family History Father Hypertension Renal failure Mother Diabetes Hypertension HLD (hyperlipidemia) Lupus MVP (mitral valve prolapse) Brother Cancer Spine Cancer Sister Hypertension GERD (gastroesophageal reflux disease) Social History (Updated 05/21/19 @ 18:20 by Srinivas Ennis MD) Smoking Status: Never smoker alcohol intake: current Alcohol type: hard liquor substance use type: does not use seatbelt use: always HPI HPI HPI: EFREN GRIFFIN, is a 68 F who presents to the office today for HPI HPI Surgical H&P: Yes HPI: EFREN GRIFFIN, is a 68 F who presents to the office today for surgical consultation regarding swallowing problems. She states that over the past year she has had significant increase in difficulty with swallowing solid foods. She feels like she is choking. She had a remote upper endoscopy March 03, 2009. By that report no acute findings. As noted below she had a barium swallow. My comments follow. Not clear to me that is completely normal. The patient is referred by her primary care physician Dr Jose Patrick for surgical consultation regarding choking and swallowing problems and a written copy of my surgical consult will be returned to him The patient is on chronic Coumadin because of atrial. Fibrillation. She states that she has had several attempts at ablation. She has an indwelling pacemaker. She currently denies chest pain. No shortness of breath. Her colonoscopy is up-to-date having been performed by Dr. Quirino Rodriguez on August 11, 2010. Internal hemorrhoids and some diverticulosis was identified. Repeat at 10 years recommended. The patient does not specifically comment about reflux symptoms. Report is noted below is that a barium swallow performed October 2018 was normal. On my review it appears that the esophagus appears slightly more generous in diameter and there appears to be a relative narrowing of the distal esophagus. This may possibly be consistent with achalasia. Likely will need to have an upper endoscopy as well as manometry. [facility] Imaging Services [address] [place] [address] Esophagus Only MR#: [id number] Name: EFREN HESS [facility] #:[id number] : 1950 67 From: Enrike Cisse MD PCP:Jose Doyle MD Status:REG CLI Study:Esophagus Only Date of Exam:10/30/18 Exam#[id number] Ordering Dr: Jose Doyle MD STUDY: X-RAY - ESOPHAGUS (BARIUM SWALLOW) WITH FLUOROSCOPY REASON FOR EXAM: Female, 67 years old. Dysphagia. TECHNIQUE: 22 fluoroscopic view(s) of the esophagus were obtained following swallowing of barium. FLUOROSCOPY TIME (if supplied): (0:40) minutes/seconds COMPARISON: None. FINDINGS: There is no demonstrated esophageal foreign body. There is no demonstrated stricture or mucosal abnormality. Normal gastroesophageal junction, without a demonstrated hiatal hernia. The patient ingested a 12 mm tablet of barium without any difficulty. There is atherosclerotic tortuosity of the aortic arch and descending thoracic aorta. Normal visualized pulmonary parenchyma. Normal visualized osseous structures of the thorax. RAD/Esophagus Only IMPRESSION: Normal plain film x-ray examination (barium swallow) of the esophagus. Electronically Signed: Enrike Tnana, at 14:55 EDT , Service support , ROS General General: Yes fatigue; no weight change, appetite, colon cancer, breast cancer or weakness HEENT HEENT: Yes difficulty swallowing, eye injury and eye surgery; no swollen glands or hoarseness Endo Endocrine: Yes diabetes mellitus; no thyroid disease, thyroid cancer, Hair loss, heat intolerance or cold intolerance Skin Skin: No rash or changing moles Breast Breast: No left breast lump, right breast lump, nipple discharge, breast pain, abnormal mammogram, abnormal US or breast enlargement Musc Musculoskeletal: No back problems, arthritis, rheumatoid arthritis, gout or joint pain Cardio Cardiovascular: Yes pacemaker, atrial fibrillation and high blood pressure; no murmur, heart disease, heart attack, heart stent, palpitations, shortness of breat with exertion or chest pain Psych Psychiatric: No depression, anxiety or hearing voices Resp Respiratory: No shortness of breath, Yes sleep apnea, No cough, No COPD, No asthma, No emphysema, No wheezing Gastro Gastrointestinal: No abdominal pain, No nausea or vomiting, No diarrhea, No constipation, No blood in stool, No acid reflux, No hemorrhoids, No ulcers, No gallbladder problem, No black,tarry stools Oseas Hematologic: Yes blood thinners, No blood disorders, No bleeding, No anemia, No blood clots Neuro Neurologic: No system reviewed and no additional complaints, except as docu, No as per HPI, No abnormal walking, No abnormal hearing, No abnormal movements, No abnormal speech, No behavioral changes, No burning sensations, No confusion, No seizure-like activity, No unsteadiness, No dizziness, No localized weakness, No frequent falls, No headache(s), No lack of coordination, No loss of vision, No memory loss, No numbness, No other visual disturbances, No radiating pain, No restless legs, No sensory deficit, No fainting, No tingling, No tremor(s), No weakness, No other Exam Const General: cooperative, comfortable, no acute distress Nutritional Appearance: average body habitus Orientation: alert, awake, oriented x3 HENMT Head: normal to inspection Chest Breast Palpation: No nipple discharge Resp Effort & Inspection: normal respiratory effort Auscultation: clear to auscultation bilaterally Cardio Rate: regular rate Rhythm: regular rhythm Heart Sounds: no murmurs GI Palpation: soft, no hepatosplenomegaly Auscultation: normal bowel sounds Skin General: no rashes or lesions noted Neuro Cognition: normal cognition Extrem Other: 1+ bilateral lower extremity pitting edema Psych Affect: normal affect Assessment & Plan Problems 1. Dysphasia R47.02 Plan 68-year-old female with history of sick sinus syndrome now on chronic anticoagulation for atrial fibrillation indwelling pacemaker. Over the past year she has been having swallowing issues. Barium swallow was interpreted as normal but to me suggest slight narrowing of the distal esophagus EG junction. I am not sure whether this possibly could represent evolving achalasia. I do recommend for her a upper endoscopy with mcadams biopsy. She is aware of the technique, benefit, risk, alternatives. We will schedule procedure at her discretion. Because of her pacemaker we will utilize monitored anesthesia care. She has had an opportunity to ask and have questions answered. We will schedule and proceed at her discretion. I very much appreciate the kind opportunity of assisting with her surgical care. CC: Dr Jose Ennis M.D., F.A.C.S. Orders Orders: EGD Today R13.10 Coding Level of Care Code 73288 Diagnoses Dysphasia R47.02 05/21/19 3320 <Electronically signed by Srinivas hutchins MD> Date _ Srinivas Ennis MD I have re-examined the patient. There are no clinical changes since date of exam.
[2019-05-21 15:07] VITALS: BMI 27.8
[2019-06-19 06:59] VITALS: BP 140/73; PULSE 65; RESP 14; TEMP 36.9; O2SAT 95; BMI 28.0
[2019-06-19 07:10] LABS: International Normalized Ratio 1.4
[2019-06-19] MEDS: Lactated Ringers 1,000 ML 100 ML IV (07:19)
--- NOTE | 2019-06-19 07:30 | IMM_PTH ---
PATIENT: EFREN HESS LOC: EN U#:[id number] AGE/SX: 68/F ROOM: RE06/19/[address]: Dr. Srinivas Ennis MD : 1950 BED: DIS: 06/19/2019 SPEC #: [id number] RECD: 06/19/19 14:47 STATUS: SHANTAL REQ #: [id number] LLUVIA: 06/19/19 07:[address]: Srinivas Ennis DEPT: IMMUNOHISTOCHEMISTRY RECD BY: Lizbeth Flower ENTERED: 06/19/19 14:48 SP TYPE: IMMUNO OTHR DR: Dr. Jose Patrick MD Tissues: B - Stomach, NOS Procedures: H Pylori (initial) PHYSICIAN & INSTITUTION [place] [address] SPECIMEN INFORMATION: Tissue Source: B - Antrum biopsy Clinical Info: Difficulty swallowing Specimen Number: [id number] CPT code: 34470 METHODOLOGY: Deparaffinized sections of prefer/formalin-fixed tissue or PAP/DQ stained slides are incubated with monoclonal/polyclonal antibodies/oligonucleotide probes. Localization is made via biotin free immunoperoxidase method. Appropriate controls are performed and reacted as expected. Results on target cell population are indicated in the following table: RESULTS: ANTIBODY / CLONE RESULT Block B H Pylori (polyclonal) negative These tests were developed and their performance characteristics determined by [facility]. They may not have been cleared or approved by the U.S. Food and Drug Administration. The FDA has determined that such clearance or approval is not necessary. INTERPRETATION: B. Antrum biopsy: Negative for Helicobacter pylori organisms. AM:wil 06/20/19
--- NOTE | 2019-06-19 07:30 | EGD_PTH ---
PATIENT: EFREN HESS LOC: EN U#:[id number] AGE/SX: 68/F ROOM: RE06/19/[address]: Dr. Srinivas Ennis MD : 1950 BED: DIS: 06/19/2019 SPEC #: [id number] RECD: 06/19/19 09:07 STATUS: SHANTAL ALVARESNisha #: [id number] LLUVIA: 06/19/19 07:[address]: Srinivas Ennis DEPT: SURGICAL PATHOLOGY RECD BY: Gigi Solis ENTERED: 06/19/19 13:26 SP TYPE: EGD BIOPSY OT DR: Dr. Jose Patrick MD Tissues: A - Duodenum, NOS B - Gastric mucous membrane C - Esophageal mucous membrane Procedures: Special Stain Group II Special Stain Group I Surgery Specimen Level IV GMS Stain (control) Alcian Blue/PAS (control) HEADER OPERATION: EGD (MAC) PRE-OP DIAGNOSIS: Difficulty swallowing TISSUE SUBMITTED: A - Duodenum biopsy, B - Antrum biopsy for H. pylori and histo, C - Distal esophagus biopsy MICROSCOPIC DIAGNOSIS A. Duodenum, biopsy: No pathologic change. B. Gastric antrum, biopsy: Chronic gastritis. See comment. C. Distal esophagus, biopsy: Gastroesophageal junctional mucosa with chronic inflammation. No evidence of intestinal metaplasia. Fibrinopurulent material suggestive of ulcer. Negative for fungal organism. See comment. AM:wil 06/20/19 COMMENT B. The results of immunohistochemistry for Helicobacter pylori will be reported separately ([id number]). C. Alcian blue/PAS and GMS stains with matched controls were used in the evaluation of this case. MICROSCOPIC DESCRIPTION Slides are reviewed. GROSS DESCRIPTION A - Received in fixative is one container labeled with the patient's name and designated duodenal biopsy. The specimen consists of one irregular fragment of light drummond soft tissue that measures 0.3 x 0.3 x 0.1 cm. The specimen is totally submitted in one cassette. B - Received in fixative is one container labeled with the patient's name and designated antrum biopsy. The specimen consists of one irregular fragment of light drummond soft tissue that measures 0.5 x 0.4 x 0.1 cm. The specimen is totally submitted in one cassette. C - Received in fixative is one container labeled with the patient's name and designated distal esophagus biopsy. The specimen consists of multiple irregular fragments of light drummond soft tissue that in aggregate measure 0.5 x 0.5 x 0.1 cm. The specimen is totally submitted in one cassette. / ARIAN:wil 06/19/19 TC:2 CPT: 05447 x3, 70658, 05467
[2019-06-19 07:31] LABS: Bedside Glucose 133 mg/dL (70-110)
[2019-06-19 07:47] VITALS: BP 109/54; BP 140/73; PULSE 60; RESP 16; TEMP 36.4; O2SAT 99
--- NOTE | 2019-06-19 07:49 | OP.EGD_ITS ---
Patient Name: Sandra Ambrosio Procedure Date: 06/19/2019 7:22 AM Date of : 1950 Age: 68 Procedure: Upper GI endoscopy Indications: Dysphagia Providers: Srinivas Ennis MD Referring MD: Jose Patrick Medicines: See the Anesthesia note for documentation of the administered medications Complications: No immediate complications. Procedure: Pre-Anesthesia Assessment: - Prior to the procedure, a History and Physical was performed, and patient medications and allergies were reviewed. The patient's tolerance of previous anesthesia was also reviewed. The risks and benefits of the procedure and the sedation options and risks were discussed with the patient. All questions were answered, and informed consent was obtained. Prior Anticoagulants: The patient has taken no previous anticoagulant or antiplatelet agents. ASA Grade Assessment: II - A patient with mild systemic disease. After reviewing the risks and benefits, the patient was deemed in satisfactory condition to undergo the procedure. After obtaining informed consent, the endoscope was passed under direct vision. Throughout the procedure, the patient's blood pressure, pulse, and oxygen saturations were monitored continuously. The gastroscope was introduced through the mouth, and advanced to the second part of duodenum. The upper GI endoscopy was accomplished without difficulty. The patient tolerated the procedure well. Scope In: 7:33:59 AM Scope Out: 7:42:16 AM Total Procedure Duration Time 0 hours 8 minutes 17 seconds Findings: LA Grade A (one or more mucosal breaks less than 5 mm, not extending between tops of 2 mucosal folds) esophagitis with no bleeding was found 40 cm from the incisors. Biopsies were taken with a cold forceps for histology. A mild Schatzki ring was found at the gastroesophageal junction. A TTS dilator was passed through the scope. Dilation with an 18-19-20 mm balloon dilator was performed to 20 mm. The dilation site was examined and showed no change. Estimated blood loss: none. Diffuse mild inflammation characterized by erythema was found in the gastric antrum. Biopsies were taken with a cold forceps for histology. The examined duodenum was normal. Biopsies were taken with a cold forceps for histology. Impression: - LA Grade A reflux esophagitis. Biopsied. Small hiatal hernia - Mild Schatzki ring. Dilated. No significant change - Chronic gastritis. Biopsied. - Normal examined duodenum. Biopsied. Recommendation: - Await pathology results. - Discharge patient to home. - Resume previous diet. - Continue present medications. - Use Prilosec (omeprazole) 40 mg PO daily. - Telephone my office for pathology results in 1 week. Procedure Code(s): --- Professional --- 04452, Esophagogastroduodenoscopy, flexible, transoral; with transendoscopic balloon dilation of esophagus (less than 30 mm diameter) Diagnosis Code(s): --- Professional --- K21.0, Gastro-esophageal reflux disease with esophagitis K22.2, Esophageal obstruction K29.50, Unspecified chronic gastritis without bleeding R13.10, Dysphagia, unspecified CPT copyright 2017 [employer]. All rights reserved. The codes documented in this report are preliminary and upon wildlife technician review may be revised to meet current compliance requirements. Srinivas Ennis MD 06/19/2019 7:49:02 AM This report has been signed electronically. Number of Addenda: 0 Note Initiated On: 06/19/2019 7:22 AM
[2019-06-19 07:50] VITALS: BP 100/65; BP 140/73; PULSE 60; RESP 16; O2SAT 99
[2019-06-19 07:55] VITALS: BP 113/60; BP 140/73; PULSE 60; RESP 16; O2SAT 99
[2019-06-19 08:00] VITALS: BP 131/71; BP 140/73; PULSE 71; RESP 16; TEMP 36.3; O2SAT 100
[2019-06-19 08:02] VITALS: BP 140/73
[2019-06-19 10:15] LABS: Prothrombin Time Fingerstick 18.6 SEC (11.9-14.4)
== END 2019-06-19 08:37 | disposition home or self-care (01) ==
LOC: EN 06:28 → AC 06:30
PROVIDERS: Family Provider Family Medicine; PCP Family Medicine; Referring Provider Family Medicine; Visit Provider Surgery
PROC: 0DJ08ZZ Inspection of Upper Intestinal Tract, Via Natural or Artificial Opening Endoscopic (ICD-10-PCS; CPT 43235; principal; 2019-06-19 07:25)
DX: K22.2 Esophageal obstruction (principal); K21.0 Gastro-esophageal reflux disease with esophagitis; K29.50 Unspecified chronic gastritis without bleeding; I48.0 Paroxysmal atrial fibrillation; I10 Essential (primary) hypertension; I27.20 Pulmonary hypertension, unspecified; E78.5 Hyperlipidemia, unspecified; E11.9 Type 2 diabetes mellitus without complications; Z95.0 Presence of cardiac pacemaker; Z79.84 Long term (current) use of oral hypoglycemic drugs; Z79.01 Long term (current) use of anticoagulants; Z79.82 Long term (current) use of aspirin; Z79.899 Other long term (current) drug therapy
CPT/HCPCS: 43239; 43249; 36416; 82962; 85610; 88305; 88312; 88313; 88342; J7120; J2405

== ENCOUNTER → 2019-06-29 16:01 | Outpatient (CLI) | payer MEDICARE, OTHER, SELFPAY ==
[2019-06-22 08:09] VITALS: BMI 27.9
--- NOTE | 2019-06-29 16:14 | EKG12_ITS ---
Test Reason : PREOP Blood Pressure : / mmHG Vent. Rate : 085 BPM Atrial Rate : 085 BPM P-R Int : 154 ms QRS Dur : 122 ms QT Int : 430 ms P-R-T Axes : 000 139 054 degrees QTc Int : 511 ms AV sequential or dual chamber electronic pacemaker Confirmed by ROYCE REEVES, JUSTYN ([id number]), assignment desk editor PASHA CALDWELL ([id number]) on 07/03/2019 8:57:57 AM Referred By: Taras Layne Confirmed By:JUSTYN CRANE MD
[2019-06-29 17:10] LABS: Absolute Lymphocyte Count 1.68 X10^3/uL (0.83-4.51); Absolute Neutrophil Count 3.2 X10^3/uL (2.0-7.7); Basophil# 0.05 X10^3/uL; Basophil% 0.8 % (0-1); Eosinophil# 0.18 X10^3/uL; Hematocrit 33.5 % (37-47); Hemoglobin 10.5 g/dL (12.0-15.0); Lymphocyte # 1.68 X10^3/ul (4.0); Mean Corp Hgb Conc 31.3 g/dL (32-36); Mean Corpuscular Hgb 29.7 pg (27.0-32.0); Mean Corpuscular Volume 94.6 fL (81-99); Mean Platelet Vol. 9.5 fl (6.2-12.0); Monocyte# 0.92 X10^3/uL; Monocyte% 15.4 % (0-10); NRBC Flagged by Analyzer 0 % (0-5); Neutrophil # 3.15 X10^3/uL (2.7-7.7); Neutrophil % 52.6 % (47-70); Platelet Count 328 K/mm3 (150-450); RBC Distribution Width CV 15.9 % (11.6-14.6); RBC Distribution Width SD 54.8 fl (35.1-43.9); Red Blood Count 3.54 M/mm3 (4.2-5.4)
[2019-06-29 17:51] LABS: Hemoglobin A1c 7.1 % (4.2-6.3)
[2019-06-29 17:55] LABS: Anion Gap 3 (5-15); BUN 19 mg/dL (7-18); BUN/Creat Ratio 19.3 RATIO (10-20); Calcium,Total 9.3 mg/dL (8.5-10.1); Chloride 104 mmol/L (98-107); Creatinine, Serum 0.98 mg/dL (0.55-1.02); EST Glomerular Filtration Rate 59 mL/min (>60); Est Glom Filt Rate - Afr Amer 72 mL/min (>60); Glucose 107 mg/dL (74-106); Potassium 3.9 mmol/L (3.5-5.1); Sodium Level 138 mmol/L (136-145)
== END ==
PROVIDERS: PCP Family Medicine; Referring Provider Physician Assistant; Visit Provider Physician Assistant
DX: Z01.818 Encounter for other preprocedural examination (principal); E11.9 Type 2 diabetes mellitus without complications
CPT/HCPCS: 36415; 80048; 83036; 85025; 93005

== ENCOUNTER 2019-07-06 14:40 | Outpatient (RCR) | payer MEDICARE, OTHER, SELFPAY ==
[2019-05-21 15:07] VITALS: BMI 27.8
[2019-06-15 17:50] LABS: International Normalized Ratio 1.7; Prothrombin Time (Protime)PT. 19.6 SECONDS (11.7-14.9)
[2019-06-25 17:50] LABS: International Normalized Ratio 1.8; Prothrombin Time (Protime)PT. 20.8 SECONDS (11.7-14.9)
[2019-07-09 09:11] LABS: Prothrombin Time Fingerstick 27.3 SEC (11.9-14.4)
== END 2019-07-06 18:00 | disposition home or self-care (01) ==
LOC: MTLAB 14:40
PROVIDERS: Family Provider Family Medicine; PCP Family Medicine; Referring Provider Internal Medicine Cardiovascular Disease; Visit Provider Internal Medicine Cardiovascular Disease
DX: I48.0 Paroxysmal atrial fibrillation (principal)
CPT/HCPCS: 36415; 36416; 85610

== ENCOUNTER 2019-08-02 15:58 | Outpatient (RCR) | payer MEDICARE, OTHER, SELFPAY ==
[2019-06-22 08:09] VITALS: BMI 27.9
[2019-07-19 15:10] LABS: Prothrombin Time Fingerstick 20.2 SEC (11.9-14.4)
[2019-08-02 16:11] LABS: Prothrombin Time Fingerstick 24.6 SEC (11.9-14.4)
== END 2019-08-02 18:00 | disposition home or self-care (01) ==
LOC: MTLAB 15:58
PROVIDERS: Family Provider Family Medicine; PCP Family Medicine; Referring Provider Internal Medicine Cardiovascular Disease; Visit Provider Internal Medicine Cardiovascular Disease
DX: I48.0 Paroxysmal atrial fibrillation (principal)
CPT/HCPCS: 36416; 85610

== ENCOUNTER 2019-08-31 07:52 | Outpatient (RCR) | payer MEDICARE, OTHER, SELFPAY ==
[2019-06-22 08:09] VITALS: BMI 27.9
[2019-08-31 10:08] LABS: Absolute Lymphocyte Count 1.18 X10^3/uL (0.83-4.51); Absolute Neutrophil Count 1.9 X10^3/uL (2.0-7.7); Basophil# 0.05 X10^3/uL; Basophil% 1.3 % (0-1); Eosinophil# 0.21 X10^3/uL; Eosinophils% 5.3 % (0-5); Hematocrit 29.7 % (37-47); Hemoglobin 9.4 g/dL (12.0-15.0); Lymphocyte # 1.18 X10^3/ul (4.0); Lymphocyte % 29.7 % (19-41); Mean Corp Hgb Conc 31.6 g/dL (32-36); Mean Corpuscular Hgb 28.8 pg (27.0-32.0); Mean Corpuscular Volume 91.1 fL (81-99); Mean Platelet Vol. 9.7 fl (6.2-12.0); Monocyte# 0.59 X10^3/uL; Monocyte% 14.9 % (0-10); NRBC Flagged by Analyzer 0 % (0-5); Neutrophil # 1.93 X10^3/uL (2.7-7.7); Neutrophil % 48.5 % (47-70); Platelet Count 288 K/mm3 (150-450); RBC Distribution Width CV 15.7 % (11.6-14.6); RBC Distribution Width SD 52.1 fl (35.1-43.9); Red Blood Count 3.26 M/mm3 (4.2-5.4)
[2019-08-31 10:12] LABS: International Normalized Ratio 2.2; Prothrombin Time (Protime)PT. 24.1 SECONDS (11.7-14.9)
[2019-08-31 10:21] LABS: Hemoglobin A1c 6.9 % (4.2-6.3)
[2019-08-31 10:22] LABS: Vitamin B12 868 pg/mL (211-911)
[2019-08-31 10:38] LABS: AST(SGOT) 20 U/L (15-37); Alanine Aminotransfer ALT/SGPT 20 U/L (13-56); Albumin, Serum 3.3 g/dL (3.2-5.0); Alkaline Phosphatase 70 U/L (45-117); Anion Gap 7 (5-15); BUN 22 mg/dL (7-18); BUN/Creat Ratio 22.7 RATIO (10-20); Calcium,Total 8.9 mg/dL (8.5-10.1); Chloride 103 mmol/L (98-107); Cholesterol 131 mg/dL (200); Creatinine, Serum 0.97 mg/dL (0.55-1.02); EST Glomerular Filtration Rate 60 mL/min (>60); Est Glom Filt Rate - Afr Amer 73 mL/min (>60); Ferritin 12 ng/mL (8-252); Globulin 3.4 g/dL (2.2-4.2); Glucose 118 mg/dL (74-106); High Density Lipoprotein 61 mg/dL; Iron 34 ug/dL (50-170); Iron Binding Capacity,Total 413 ug/dL (250-450); Magnesium 1.6 mg/dL (1.6-2.6); Potassium 4.6 mmol/L (3.5-5.1); Protein, Total 6.7 g/dL (6.4-8.2); Sodium Level 136 mmol/L (136-145); Triglycerides 113 mg/dL; Very Low Density Lipoprotein 23 mg/dL (5-40)
== END 2019-08-31 18:00 | disposition home or self-care (01) ==
LOC: MTLAB 07:52
PROVIDERS: Family Provider Family Medicine; PCP Family Medicine; Referring Provider Internal Medicine Cardiovascular Disease; Visit Provider Internal Medicine Cardiovascular Disease
DX: I48.0 Paroxysmal atrial fibrillation (principal); I10 Essential (primary) hypertension; D64.9 Anemia, unspecified; E11.9 Type 2 diabetes mellitus without complications; E78.5 Hyperlipidemia, unspecified; E83.42 Hypomagnesemia
CPT/HCPCS: 36415; 80053; 80061; 82607; 82728; 82746; 83036; 83540; 83550; 83735; 85025; 85610

== ENCOUNTER → 2019-10-08 | Outpatient (CLI) | payer MEDICARE, OTHER, SELFPAY ==
[2019-06-22 08:09] VITALS: BMI 27.9
[2019-10-08 10:03] LABS: Absolute Lymphocyte Count 1.29 X10^3/uL (0.83-4.51); Absolute Neutrophil Count 1.8 X10^3/uL (2.0-7.7); Basophil# 0.06 X10^3/uL; Basophil% 1.5 % (0-1); Eosinophils% 5.1 % (0-5); Hemoglobin 10.5 g/dL (12.0-15.0); Lymphocyte # 1.29 X10^3/ul (4.0); Lymphocyte % 33.1 % (19-41); Mean Corp Hgb Conc 30.9 g/dL (32-36); Mean Corpuscular Hgb 28.2 pg (27.0-32.0); Mean Corpuscular Volume 91.4 fL (81-99); Mean Platelet Vol. 9.7 fl (6.2-12.0); Monocyte# 0.54 X10^3/uL; Monocyte% 13.8 % (0-10); NRBC Flagged by Analyzer 0 % (0-5); Neutrophil % 46.2 % (47-70); Platelet Count 287 K/mm3 (150-450); RBC Distribution Width CV 17.3 % (11.6-14.6); Red Blood Count 3.72 M/mm3 (4.2-5.4); White Blood Count 3.9 K/mm3 (4.4-11.0)
[2019-10-08 10:13] LABS: International Normalized Ratio 1.9
[2019-10-08 10:21] LABS: Ferritin 20 ng/mL (8-252); Iron 45 ug/dL (50-170); Iron Binding Capacity,Total 419 ug/dL (250-450)
== END | disposition home or self-care (01) ==
LOC: MFPLAB 09:10 → LABSPEC 09:28 → MFPLAB 09:28
PROVIDERS: Internal Medicine Cardiovascular Disease; PCP Family Medicine; Referring Provider Family Medicine; Visit Provider Family Medicine
DX: D50.9 Iron deficiency anemia, unspecified (principal); I48.0 Paroxysmal atrial fibrillation
CPT/HCPCS: 36415; 82728; 83540; 83550; 85025; 85610

== ENCOUNTER 2019-10-22 15:59 | Outpatient (RCR) | payer MEDICARE, OTHER, SELFPAY ==
[2019-06-22 08:09] VITALS: BMI 27.9
[2019-10-22 16:16] LABS: Prothrombin Time Fingerstick 24.7 SEC (11.9-14.4)
== END 2019-10-22 18:00 | disposition home or self-care (01) ==
LOC: MTLAB 15:59
PROVIDERS: Family Provider Family Medicine; PCP Family Medicine; Referring Provider Internal Medicine Cardiovascular Disease; Visit Provider Internal Medicine Cardiovascular Disease
DX: I48.0 Paroxysmal atrial fibrillation (principal)
CPT/HCPCS: 36416; 85610

== ENCOUNTER → 2019-11-28 | Outpatient (CLI) | payer MEDICARE, OTHER, SELFPAY ==
[2019-06-22 08:09] VITALS: BMI 27.9
[2019-11-28 10:06] LABS: Absolute Lymphocyte Count 1.29 X10^3/uL (0.83-4.51); Absolute Neutrophil Count 2.3 X10^3/uL (2.0-7.7); Basophil# 0.05 X10^3/uL; Basophil% 1.1 % (0-1); Eosinophil# 0.22 X10^3/uL; Eosinophils% 4.9 % (0-5); Hematocrit 32.7 % (37-47); Lymphocyte # 1.29 X10^3/ul (4.0); Lymphocyte % 28.9 % (19-41); Mean Corp Hgb Conc 30.6 g/dL (32-36); Mean Corpuscular Hgb 29.2 pg (27.0-32.0); Mean Corpuscular Volume 95.6 fL (81-99); Mean Platelet Vol. 9.8 fl (6.2-12.0); Monocyte# 0.62 X10^3/uL; Monocyte% 13.9 % (0-10); NRBC Flagged by Analyzer 0 % (0-5); Neutrophil # 2.28 X10^3/uL (2.7-7.7); Platelet Count 286 K/mm3 (150-450); RBC Distribution Width SD 58.5 fl (35.1-43.9); Red Blood Count 3.42 M/mm3 (4.2-5.4); White Blood Count 4.5 K/mm3 (4.4-11.0)
[2019-11-28 10:16] LABS: International Normalized Ratio 1.8; Prothrombin Time (Protime)PT. 20.4 SECONDS (11.7-14.9)
[2019-11-28 10:31] LABS: AST(SGOT) 25 U/L (15-37); Alanine Aminotransfer ALT/SGPT 24 U/L (13-56); Albumin, Serum 3.3 g/dL (3.2-5.0); Alkaline Phosphatase 76 U/L (45-117); Anion Gap 5 (5-15); BUN 18 mg/dL (7-18); BUN/Creat Ratio 19.9 RATIO (10-20); Calcium,Total 9.2 mg/dL (8.5-10.1); Chloride 105 mmol/L (98-107); Cholesterol 116 mg/dL (200); EST Glomerular Filtration Rate 65 mL/min (>60); Est Glom Filt Rate - Afr Amer 79 mL/min (>60); Ferritin 19 ng/mL (8-252); Globulin 3.4 g/dL (2.2-4.2); Glucose 121 mg/dL (74-106); High Density Lipoprotein 58 mg/dL; Iron 38 ug/dL (50-170); Iron Binding Capacity,Total 412 ug/dL (250-450); Magnesium 1.7 mg/dL (1.6-2.6); Potassium 4.4 mmol/L (3.5-5.1); Protein, Total 6.7 g/dL (6.4-8.2); Sodium Level 139 mmol/L (136-145); Triglycerides 123 mg/dL; Very Low Density Lipoprotein 25 mg/dL (5-40)
[2019-11-28 10:34] LABS: Hemoglobin A1c 6.3 % (3.8-5.6)
[2019-11-28 10:49] LABS: Microalbumin,Random Urine 9.2 mg/L (NO RANGE EST.); Microalbumin:Creatinine Ratio 15.9 mg/g CRE (<30 mg/g CRE); Protein, Urine (Random) 8.3 mg/dL (<11.9); Protein:Creat Ratio 144 mg/g CRE (0-200)
== END | disposition home or self-care (01) ==
LOC: MFPLAB 08:01
PROVIDERS: PCP Family Medicine; Visit Provider Family Medicine
DX: E11.9 Type 2 diabetes mellitus without complications (principal); I10 Essential (primary) hypertension; E78.5 Hyperlipidemia, unspecified; E83.42 Hypomagnesemia; D50.9 Iron deficiency anemia, unspecified; I48.0 Paroxysmal atrial fibrillation
CPT/HCPCS: 80053; 80061; 82043; 82570; 82728; 83036; 83540; 83550; 83735; 84156; 85025; 85610

== ENCOUNTER 2020-01-02 14:42 | Outpatient (RCR) | payer MEDICARE, OTHER, SELFPAY ==
[2019-06-22 08:09] VITALS: BMI 27.9
[2019-12-19 15:21] LABS: Prothrombin Time Fingerstick 24.1 SEC (11.9-14.4)
[2020-01-02 14:50] LABS: Prothrombin Time Fingerstick 28.9 SEC (11.9-14.4)
== END 2020-01-02 18:00 | disposition home or self-care (01) ==
LOC: MTLAB 14:42
PROVIDERS: Family Provider Family Medicine; PCP Family Medicine; Referring Provider Internal Medicine Cardiovascular Disease; Visit Provider Internal Medicine Cardiovascular Disease
DX: I48.0 Paroxysmal atrial fibrillation (principal)
CPT/HCPCS: 36416; 85610

== ENCOUNTER 2020-02-05 11:22 | Outpatient (RCR) | payer MEDICARE, OTHER, SELFPAY ==
[2019-06-22 08:09] VITALS: BMI 27.9
== END 2020-02-11 18:00 | disposition home or self-care (01) ==
LOC: MTLAB 11:22
PROVIDERS: Family Provider Family Medicine; PCP Family Medicine; Referring Provider Internal Medicine Cardiovascular Disease; Visit Provider Internal Medicine Cardiovascular Disease
DX: I48.0 Paroxysmal atrial fibrillation (principal)
CPT/HCPCS: 36416; 85610

== ENCOUNTER 2020-03-03 15:29 | Outpatient (RCR) | payer MEDICARE, OTHER, SELFPAY ==
[2019-06-22 08:09] VITALS: BMI 27.9
[2020-03-03 15:46] LABS: Prothrombin Time Fingerstick 30.1 SEC (11.9-14.4)
== END 2020-03-03 18:00 | disposition home or self-care (01) ==
LOC: MTLAB 15:29
PROVIDERS: Family Provider Family Medicine; PCP Family Medicine; Referring Provider Internal Medicine Cardiovascular Disease; Visit Provider Internal Medicine Cardiovascular Disease
DX: I48.0 Paroxysmal atrial fibrillation (principal)
CPT/HCPCS: 36416; 85610

== ENCOUNTER 2020-03-18 15:05 | Outpatient (RCR) | payer MEDICARE, OTHER, SELFPAY ==
[2019-06-22 08:09] VITALS: BMI 27.9
[2020-03-18 16:06] LABS: Prothrombin Time Fingerstick 30.8 SEC (11.9-14.4)
== END 2020-03-18 18:00 | disposition home or self-care (01) ==
LOC: MTLAB 15:05
PROVIDERS: Family Provider Family Medicine; PCP Family Medicine; Referring Provider Internal Medicine Cardiovascular Disease; Visit Provider Internal Medicine Cardiovascular Disease
DX: I48.0 Paroxysmal atrial fibrillation (principal)
CPT/HCPCS: 36416; 85610

== ENCOUNTER 2020-05-05 15:28 | Outpatient (RCR) | payer MEDICARE, OTHER, SELFPAY ==
[2019-06-22 08:09] VITALS: BMI 27.9
[2020-04-21 16:35] LABS: Prothrombin Time Fingerstick 21.6 SEC (11.9-14.4)
[2020-05-05 15:41] LABS: Prothrombin Time Fingerstick 24.7 SEC (11.9-14.4)
== END 2020-05-05 18:00 | disposition home or self-care (01) ==
LOC: MTLAB 15:28
PROVIDERS: Family Provider Family Medicine; PCP Family Medicine; Referring Provider Internal Medicine Cardiovascular Disease; Visit Provider Internal Medicine Cardiovascular Disease
DX: I48.0 Paroxysmal atrial fibrillation (principal); Z79.01 Long term (current) use of anticoagulants
CPT/HCPCS: 36416; 85610

== ENCOUNTER → 2020-05-26 08:26 | Outpatient (CLI) | payer MEDICARE, OTHER, SELFPAY ==
[2019-06-22 08:09] VITALS: BMI 27.9
[2020-05-26 09:42] LABS: Absolute Lymphocyte Count 1.23 X10^3/uL (0.83-4.51); Absolute Neutrophil Count 2.4 X10^3/uL (2.0-7.7); Basophil# 0.04 X10^3/uL; Basophil% 0.9 % (0-1); Eosinophil# 0.16 X10^3/uL; Eosinophils% 3.7 % (0-5); Hematocrit 38.2 % (37-47); Hemoglobin 12.1 g/dL (12.0-15.0); Lymphocyte # 1.23 X10^3/ul (4.0); Lymphocyte % 28.2 % (19-41); Mean Corp Hgb Conc 31.7 g/dL (32-36); Mean Corpuscular Hgb 30.7 pg (27.0-32.0); Mean Platelet Vol. 9.9 fl (6.2-12.0); Monocyte# 0.55 X10^3/uL; Monocyte% 12.6 % (0-10); NRBC Flagged by Analyzer 0 % (0-5); Neutrophil # 2.37 X10^3/uL (2.7-7.7); Neutrophil % 54.4 % (47-70); Platelet Count 231 K/mm3 (150-450); RBC Distribution Width CV 14.5 % (11.6-14.6); RBC Distribution Width SD 51.6 fl (35.1-43.9); Red Blood Count 3.94 M/mm3 (4.2-5.4); White Blood Count 4.4 K/mm3 (4.4-11.0)
[2020-05-26 09:51] LABS: International Normalized Ratio 2.1; Prothrombin Time (Protime)PT. 23.4 SECONDS (11.7-14.9)
[2020-05-26 09:59] LABS: Vitamin D,25 Hydroxy 26.4 ng/mL
[2020-05-26 10:04] LABS: PTHIN 51.4 pg/mL (18.4-80.1)
[2020-05-26 10:07] LABS: Hemoglobin A1c 6.2 % (3.8-5.6)
[2020-05-26 10:10] LABS: Microalbumin,Random Urine 20.9 mg/L (NO RANGE EST.); Microalbumin:Creatinine Ratio 22.3 mg/g CRE (<30 mg/g CRE); Protein:Creat Ratio 160 mg/g CRE (0-200)
[2020-05-26 10:22] LABS: AST(SGOT) 22 U/L (15-37); Alanine Aminotransfer ALT/SGPT 26 U/L (13-56); Albumin, Serum 3.5 g/dL (3.2-5.0); Alkaline Phosphatase 79 U/L (45-117); Anion Gap 5 (5-15); BUN 19 mg/dL (7-18); BUN/Creat Ratio 23.7 RATIO (10-20); Chloride 107 mmol/L (98-107); Cholesterol 120 mg/dL (200); EST Glomerular Filtration Rate 75 mL/min (>60); Est Glom Filt Rate - Afr Amer 90 mL/min (>60); Ferritin 160 ng/mL (8-252); Globulin 3.4 g/dL (2.2-4.2); Glucose 108 mg/dL (74-106); High Density Lipoprotein 65 mg/dL; Iron 81 ug/dL (50-170); Iron Binding Capacity,Total 318 ug/dL (250-450); Magnesium 1.7 mg/dL (1.6-2.6); Potassium 4.2 mmol/L (3.5-5.1); Protein, Total 6.9 g/dL (6.4-8.2); Sodium Level 140 mmol/L (136-145); Triglycerides 116 mg/dL; Very Low Density Lipoprotein 23 mg/dL (5-40)
== END ==
PROVIDERS: Internal Medicine Cardiovascular Disease; PCP Family Medicine; Visit Provider Family Medicine
DX: I48.0 Paroxysmal atrial fibrillation (principal); E78.5 Hyperlipidemia, unspecified; E83.42 Hypomagnesemia; D50.9 Iron deficiency anemia, unspecified; I12.9 Hypertensive chronic kidney disease with stage 1 through stage 4 chronic kidney disease, or unspecified chronic kidney disease; N18.30 Chronic kidney disease, stage 3 unspecified; Z79.01 Long term (current) use of anticoagulants; E11.22 Type 2 diabetes mellitus with diabetic chronic kidney disease
CPT/HCPCS: 80053; 80061; 82043; 82306; 82570; 82728; 83036; 83540; 83550; 83735; 83970; 84156; 85025; 85610

== ENCOUNTER 2020-07-01 15:15 | Outpatient (RCR) | payer MEDICARE, OTHER, SELFPAY ==
[2019-06-22 08:09] VITALS: BMI 27.9
[2020-07-01 15:31] LABS: Prothrombin Time Fingerstick 25.7 SEC (11.9-14.4)
== END 2020-07-01 18:00 | disposition home or self-care (01) ==
LOC: MTLAB 15:15
PROVIDERS: Family Provider Family Medicine; PCP Family Medicine; Referring Provider Internal Medicine Cardiovascular Disease; Visit Provider Internal Medicine Cardiovascular Disease
DX: I48.0 Paroxysmal atrial fibrillation (principal); Z79.01 Long term (current) use of anticoagulants
CPT/HCPCS: 36416; 85610

== ENCOUNTER 2020-08-01 14:14 | Outpatient (RCR) | payer MEDICARE, OTHER, SELFPAY ==
[2019-06-22 08:09] VITALS: BMI 27.9
[2020-08-01 14:41] LABS: Prothrombin Time Fingerstick 30.5 SEC (11.9-14.4)
== END 2020-08-01 18:00 | disposition home or self-care (01) ==
LOC: MTLAB 14:14
PROVIDERS: Family Provider Family Medicine; PCP Family Medicine; Referring Provider Internal Medicine Cardiovascular Disease; Visit Provider Internal Medicine Cardiovascular Disease
DX: I48.0 Paroxysmal atrial fibrillation (principal); Z79.01 Long term (current) use of anticoagulants
CPT/HCPCS: 36416; 85610

== ENCOUNTER 2020-08-29 14:12 | Outpatient (RCR) | payer MEDICARE, OTHER, SELFPAY ==
[2019-06-22 08:09] VITALS: BMI 27.9
[2020-08-12 11:09] VITALS: BMI 28.6
[2020-08-29 14:20] LABS: INR Fingerstick 2.5; Prothrombin Time Fingerstick 28.5 SEC (11.9-14.4)
== END 2020-08-29 18:00 | disposition home or self-care (01) ==
LOC: MTLAB 14:12
PROVIDERS: Family Provider Family Medicine; PCP Family Medicine; Referring Provider Internal Medicine Cardiovascular Disease; Visit Provider Internal Medicine Cardiovascular Disease
DX: I48.0 Paroxysmal atrial fibrillation (principal); Z79.01 Long term (current) use of anticoagulants
CPT/HCPCS: 36416; 85610

== ENCOUNTER → 2020-09-23 09:15 | Outpatient (CLI) | payer MEDICARE, OTHER, SELFPAY ==
[2020-08-12 11:09] VITALS: BMI 28.6
[2020-09-23 12:16] LABS: Absolute Lymphocyte Count 1.32 X10^3/uL (0.83-4.51); Absolute Neutrophil Count 3.5 X10^3/uL (2.0-7.7); Basophil# 0.05 X10^3/uL; Basophil% 0.9 % (0-1); Eosinophils% 3.5 % (0-5); Hematocrit 42.2 % (37-47); Hemoglobin 13.3 g/dL (12.0-15.0); Lymphocyte # 1.32 X10^3/ul (4.0); Lymphocyte % 23.2 % (19-41); Mean Corp Hgb Conc 31.5 g/dL (32-36); Mean Corpuscular Hgb 30.7 pg (27.0-32.0); Mean Corpuscular Volume 97.5 fL (81-99); Mean Platelet Vol. 9.7 fl (6.2-12.0); Monocyte% 10.5 % (0-10); NRBC Flagged by Analyzer 0 % (0-5); Neutrophil % 61.5 % (47-70); Platelet Count 246 K/mm3 (150-450); RBC Distribution Width CV 14.6 % (11.6-14.6); Red Blood Count 4.33 M/mm3 (4.2-5.4); White Blood Count 5.7 K/mm3 (4.4-11.0)
[2020-09-23 12:33] LABS: ALB/GLOB Ratio 1.1 RATIO (0.9-2.4); AST(SGOT) 28 U/L (15-37); Alanine Aminotransfer ALT/SGPT 30 U/L (13-56); Albumin, Serum 3.8 g/dL (3.2-5.0); Alkaline Phosphatase 68 U/L (45-117); Anion Gap 5 (5-15); BUN 24 mg/dL (7-18); BUN/Creat Ratio 26.3 RATIO (10-20); Calcium,Total 9.6 mg/dL (8.5-10.1); Chloride 99 mmol/L (98-107); Cholesterol 148 mg/dL (200); Creatinine, Serum 0.91 mg/dL (0.55-1.02); EST Glomerular Filtration Rate 65 mL/min (>60); Est Glom Filt Rate - Afr Amer 78 mL/min (>60); Globulin 3.5 g/dL (2.2-4.2); Glucose 123 mg/dL (74-106); High Density Lipoprotein 82 mg/dL; Potassium 4.6 mmol/L (3.5-5.1); Protein, Total 7.3 g/dL (6.4-8.2); Sodium Level 135 mmol/L (136-145); Triglycerides 116 mg/dL; Very Low Density Lipoprotein 23 mg/dL (5-40)
[2020-09-23 12:41] LABS: Vitamin D,25 Hydroxy 36.1 ng/mL
[2020-09-23 12:44] LABS: Hemoglobin A1c 6.7 % (3.8-5.6)
== END ==
PROVIDERS: PCP Family Medicine; Referring Provider Family Medicine; Visit Provider Family Medicine
DX: E78.5 Hyperlipidemia, unspecified (principal); E83.42 Hypomagnesemia; I10 Essential (primary) hypertension; E11.9 Type 2 diabetes mellitus without complications; E55.9 Vitamin D deficiency, unspecified
CPT/HCPCS: 36415; 80053; 80061; 82306; 83036; 83735; 85025

== ENCOUNTER 2020-09-26 14:25 | Outpatient (RCR) | payer MEDICARE, OTHER, SELFPAY ==
[2020-08-12 11:09] VITALS: BMI 28.6
[2020-09-26 14:35] LABS: INR Fingerstick 2.7; Prothrombin Time Fingerstick 30.4 SEC (11.9-14.4)
== END 2020-09-26 18:00 | disposition home or self-care (01) ==
LOC: MTLAB 14:25
PROVIDERS: Family Provider Family Medicine; PCP Family Medicine; Referring Provider Internal Medicine Cardiovascular Disease; Visit Provider Internal Medicine Cardiovascular Disease
DX: I48.0 Paroxysmal atrial fibrillation (principal); Z79.01 Long term (current) use of anticoagulants
CPT/HCPCS: 36416; 85610

== ENCOUNTER 2020-10-27 15:10 | Outpatient (RCR) | payer MEDICARE, OTHER, SELFPAY ==
[2020-08-12 11:09] VITALS: BMI 28.6
[2020-10-27 15:21] LABS: INR Fingerstick 2.4; Prothrombin Time Fingerstick 27.4 SEC (11.9-14.4)
== END 2020-10-27 18:00 | disposition home or self-care (01) ==
LOC: MTLAB 15:10
PROVIDERS: Family Provider Family Medicine; PCP Family Medicine; Referring Provider Internal Medicine Cardiovascular Disease; Visit Provider Internal Medicine Cardiovascular Disease
DX: I48.0 Paroxysmal atrial fibrillation (principal); Z79.01 Long term (current) use of anticoagulants
CPT/HCPCS: 36416; 85610

== ENCOUNTER 2020-11-28 14:31 | Outpatient (RCR) | payer MEDICARE, OTHER, SELFPAY ==
[2020-08-12 11:09] VITALS: BMI 28.6
[2020-11-28 14:50] LABS: Prothrombin Time Fingerstick 22.8 SEC (11.9-14.4)
== END 2020-11-28 18:00 | disposition home or self-care (01) ==
LOC: MTLAB 14:31
PROVIDERS: Family Provider Family Medicine; PCP Family Medicine; Referring Provider Internal Medicine Cardiovascular Disease; Visit Provider Internal Medicine Cardiovascular Disease
DX: I48.0 Paroxysmal atrial fibrillation (principal); Z79.01 Long term (current) use of anticoagulants
CPT/HCPCS: 36416; 85610

== ENCOUNTER 2020-12-24 08:30 | Outpatient (RCR) | payer MEDICARE, OTHER, SELFPAY ==
[2020-08-12 11:09] VITALS: BMI 28.6
[2020-12-24 10:08] LABS: Absolute Lymphocyte Count 1.31 X10^3/uL (0.83-4.51); Absolute Neutrophil Count 2.9 X10^3/uL (2.0-7.7); Basophil# 0.04 X10^3/uL; Basophil% 0.8 % (0-1); Eosinophil# 0.15 X10^3/uL; Hematocrit 37.3 % (37-47); Hemoglobin 11.9 g/dL (12.0-15.0); Lymphocyte # 1.31 X10^3/ul (0.83-4.51); Lymphocyte % 26.3 % (19-41); Mean Corp Hgb Conc 31.9 g/dL (32-36); Mean Corpuscular Hgb 31.2 pg (27.0-32.0); Mean Corpuscular Volume 97.6 fL (81-99); Mean Platelet Vol. 9.9 fl (6.2-12.0); Monocyte# 0.61 X10^3/uL; Monocyte% 12.2 % (0-10); NRBC Flagged by Analyzer 0 % (0-5); Neutrophil # 2.86 X10^3/uL (2.7-7.7); Neutrophil % 57.5 % (47-70); Platelet Count 293 K/mm3 (150-450); RBC Distribution Width CV 14.7 % (11.6-14.6); RBC Distribution Width SD 53.1 fl (35.1-43.9); Red Blood Count 3.82 M/mm3 (4.2-5.4)
[2020-12-24 10:21] LABS: International Normalized Ratio 2.6; Prothrombin Time (Protime)PT. 27.2 SECONDS (11.7-14.9)
[2020-12-24 10:32] LABS: ALB/GLOB Ratio 1.1 RATIO (0.9-2.4); AST(SGOT) 25 U/L (15-37); Alanine Aminotransfer ALT/SGPT 28 U/L (13-56); Albumin, Serum 3.6 g/dL (3.2-5.0); Alkaline Phosphatase 77 U/L (45-117); Anion Gap 4 (5-15); BUN 21 mg/dL (7-18); BUN/Creat Ratio 23.5 RATIO (10-20); Calcium,Total 9.2 mg/dL (8.5-10.1); Chloride 101 mmol/L (98-107); Cholesterol 133 mg/dL (200); EST Glomerular Filtration Rate 66 mL/min (>60); Est Glom Filt Rate - Afr Amer 80 mL/min (>60); Globulin 3.2 g/dL (2.2-4.2); Glucose 118 mg/dL (74-106); High Density Lipoprotein 63 mg/dL; Magnesium 1.9 mg/dL (1.6-2.6); Potassium 4.2 mmol/L (3.5-5.1); Protein, Total 6.8 g/dL (6.4-8.2); Sodium Level 137 mmol/L (136-145); Triglycerides 145 mg/dL; Very Low Density Lipoprotein 29 mg/dL (5-40)
[2020-12-24 10:41] LABS: Microalbumin,Random Urine 12.9 mg/L (NO RANGE EST.); Microalbumin:Creatinine Ratio 17.6 mg/g CRE (<30 mg/g CRE)
[2020-12-24 11:00] LABS: Hemoglobin A1c 6.8 % (3.8-5.6)
== END 2020-12-24 18:00 | disposition home or self-care (01) ==
LOC: MTLAB 08:30
PROVIDERS: Family Provider Family Medicine; PCP Family Medicine; Referring Provider Internal Medicine Cardiovascular Disease; Visit Provider Internal Medicine Cardiovascular Disease
DX: I48.0 Paroxysmal atrial fibrillation (principal); Z79.01 Long term (current) use of anticoagulants; E11.59 Type 2 diabetes mellitus with other circulatory complications; E11.69 Type 2 diabetes mellitus with other specified complication
CPT/HCPCS: 36415; 80053; 80061; 82043; 82570; 83036; 83735; 85025; 85610

== ENCOUNTER 2021-01-30 14:22 | Outpatient (RCR) | payer MEDICARE, OTHER, SELFPAY ==
[2020-08-12 11:09] VITALS: BMI 28.6
[2021-01-30 17:34] LABS: International Normalized Ratio 2.8; Prothrombin Time (Protime)PT. 28.4 SECONDS (11.7-14.9)
[2021-02-12 10:07] LABS: ACHR Recep AB, Blocking 15 % (0-25); Acetylcholine Receptor Binding < 0.03 nmol/L (0.00-0.24)
== END 2021-01-30 18:00 | disposition home or self-care (01) ==
LOC: MTLAB 14:22
PROVIDERS: Ophthalmology; Family Provider Family Medicine; PCP Family Medicine; Referring Provider Internal Medicine Cardiovascular Disease; Visit Provider Internal Medicine Cardiovascular Disease
DX: I48.0 Paroxysmal atrial fibrillation (principal); Z79.01 Long term (current) use of anticoagulants; H57.812 Brow ptosis, left; G70.00 Myasthenia gravis without (acute) exacerbation
CPT/HCPCS: 36415; 83519; 84238; 85610

== ENCOUNTER 2021-03-03 15:02 | Outpatient (RCR) | payer MEDICARE, OTHER, SELFPAY ==
[2021-02-11 01:25] VITALS: BMI 28.6
[2021-03-04 10:16] LABS: INR Fingerstick 2.7; Prothrombin Time Fingerstick 30.5 SEC (11.9-14.4)
== END 2021-03-03 18:00 | disposition home or self-care (01) ==
LOC: MTLAB 15:02
PROVIDERS: Family Provider Family Medicine; PCP Family Medicine; Referring Provider Internal Medicine Cardiovascular Disease; Visit Provider Internal Medicine Cardiovascular Disease
DX: I48.0 Paroxysmal atrial fibrillation (principal); Z79.01 Long term (current) use of anticoagulants
CPT/HCPCS: 36416; 85610

== ENCOUNTER 2021-03-09 13:12 | Emergency (ER) | payer MEDICARE, OTHER, SELFPAY ==
[2021-03-09 13:13] VITALS: BP 151/82; PULSE 63; RESP 6; TEMP 36.4; O2SAT 96; BMI 28.3
[2021-03-09 15:16] VITALS: BP 171/84; PULSE 72; RESP 18; O2SAT 98; O2SAT 99
--- NOTE | 2021-03-09 15:46 | EX.ED.GENINJ ---
HPI History of Present Illness Chief Complaint: Head Injury Narrative Narrative: Patient presenting with facial swelling and pain around her right eye. She states that she was walking and tripped and fell. She states she initially fell to her knees and then her hands and her head hit the sidewalk. She does have some bruising in her knees but states she is ambulatory and they do not hurt very bad. Her hands do not have any pain. She denies neck pain. She does not have any dizziness or lightheadedness. She does not have confusion. She does not have any visual complaint. Patient feels otherwise healthy. Patient is on Coumadin for atrial fibrillation. [facility] Medical History Atrial flutter Cardiomyopathy in diseases classified elsewhere Diastolic dysfunction Dysphasia Essential (primary) hypertension Hyperlipidemia Paroxysmal atrial fibrillation Secondary pulmonary arterial hypertension Sick sinus syndrome Supraventricular tachycardia Syncope and collapse Type 2 diabetes mellitus Home Medications acetaminophen 500 mg tablet 500 mg PO .Take As Directed tab 07/07/17 [History Last Taken Unknown] aspirin 81 mg tablet,delayed release 81 mg PO QDAY 07/07/17 [History Last Taken Unknown] metformin 500 mg tablet 1,000 mg PO BID 07/07/17 [History Last Taken Unknown] pioglitazone 45 mg tablet 45 mg PO QDAY 07/07/17 [History Last Taken Unknown] glucosamine 750 pa-[id number]-nms no1 644 mg-C 30 mg-nia 1 mg tablet 1 tab PO QODAY 07/28/17 [History Last Taken Unknown] magnesium oxide 400 mg PO QDAY cap 07/28/17 [History Last Taken Unknown] multivitamin 1 tab PO QAM 07/28/17 [History Last Taken Unknown] omega-3 fatty acids 1,000 mg capsule 1,000 mg PO DAILY 05/21/19 [History Last Taken 06/16/19] hydrochlorothiazide 25 mg tablet 25 mg PO QDAY #90 tab 12/24/19 [Rx Last Taken Unknown] warfarin 3 mg tablet 3 mg PO QDAY #90 tab 05/05/20 [Rx Last Taken Unknown] simvastatin 20 mg tablet 20 mg PO QHS #90 tab 08/11/20 [Rx Last Taken Unknown] sotalol 160 mg tablet See Rx Instructions .ROUTE .COMPLEX #180 tab 08/12/20 [Rx Last Taken Unknown] losartan 100 mg tablet 100 mg PO QDAY #90 tab 09/22/20 [Rx Last Taken Unknown] amlodipine 2.5 mg tablet 2.5 mg PO DAILY 02/12/21 [History Last Taken Unknown] Allergy/AdvReac Type Severity Reaction Status Date / Time esomeprazole [From Nexium] AdvReac Severe Hives Verified 03/09/21 13:15 meperidine [From Demerol] AdvReac Severe Unknown Verified 03/09/21 13:15 povidone-iodine AdvReac Severe Unknown Verified 03/09/21 13:15 [From Betadine] soap [From Betadine] AdvReac Severe Unknown Verified 03/09/21 13:15 propoxyphene AdvReac Intermediate Unknown Verified 03/09/21 13:15 [From Darvocet-N] hydrocodone [From Vicodin] AdvReac Mild Nausea, Verified 03/09/21 13:15 headache oxycodone [From Percocet] AdvReac Mild Nausea Verified 03/09/21 13:15 Family History Father Hypertension Renal failure Mother Diabetes Hypertension HLD (hyperlipidemia) Lupus MVP (mitral valve prolapse) Brother Cancer Spine Cancer Sister Hypertension GERD (gastroesophageal reflux disease) Surgical History Biventricular cardiac pacemaker in situ (02/01/19) History of foot surgery History of hysterectomy History of radiofrequency ablation procedure for cardiac arrhythmia (2009) History of thumb surgery Social History Smoking Status: Never smoker alcohol intake: current Alcohol type: hard liquor substance use type: does not use seatbelt use: always ROS ROS ED Constitutional Constitutional ED: Denies chills or fever(s) Eyes Eyes: Denies blurry vision or change in vision ENT ENT ED: Denies rhinorrhea or sore throat Cardiovascular Cardiovascular: Denies chest pain or palpitations Respiratory/Chest Respiratory/Chest: Denies cough or dyspnea Gastrointestinal Gastrointestinal: Denies abdominal pain, nausea or vomiting Genitourinary Genitourinary ED: Denies dysuria or hematuria Musculoskeletal Musculoskeletal: Reports other Details: Mild bilateral knee pain ; Denies arthralgias, back pain, myalgias or neck pain Integumentary Reports other Details: Bruising over the bilateral patella. Bruising over the right periorbital area. No laceration. Neurologic Neurologic: Denies headache(s) or paresthesias EXAM Physical Exam Const Vital Signs: 03/09/21 13:13 03/09/21 15:16 Temperature 97.6 F L Temperature Source Temporal Pulse Rate 63 72 Respiratory Rate 6 L 18 Respiratory Effort Normal Non-Labored Respiratory Depth Normal Respiratory Pattern Normal Blood Pressure 151/82 H 171/84 H Blood Pressure Mean 105 113 Pulse Ox 96 99 Oxygen Delivery Method Room Air Room Air Positive well nourished General Appearance ED: NAD HEENT Reports TM's clear HEENT Narrative: Bruising over the right periorbital area. Extraocular motion is normal without entrapment. Visual acuity is normal. Tenderness to palpation over the periorbital area. No crepitance. No obvious deformities. Tympanic Membrane ED: Yes TM's clear Eyes PERRL and EOMs intact bilaterally Resp normal respiratory effort and clear to auscultation bilaterally Cardio regular rhythm Rate: regular rate Back/Spine no thoracic nor lumbar tenderness Extremity Extremity Narrative: Small bruises over the bilateral patellas. Patient has full range of motion at the bilateral knees. Minimal pain over the bruising areas. Extensor mechanism is intact bilaterally. Neuro oriented x3, CN's II-XII intact bilaterally, moves all extremities, no focal motor deficits and no sensory deficits noted Sensorium / Orientation: alert Psych mental status grossly normal and thought process normal Skin Skin Narrative: As described above MDM MDM MDM Narrative Medical decision making narrative: Patient presenting for evaluation after mechanical fall in which she fell striking her knees and face on the ground. Patient had no LOC. She has a mild headache. There is soft tissue swelling and bruising over the right eye. No extraocular muscle entrapment. No hemotympanum. Patient does not have any confusion or dizziness. She is walking with a stable gait. She has been ambulatory without significant pain in her knees. She does not wish to have these x-rayed. I did obtain CT imaging of the brain, cervical spine, facial bones and these are all negative for acute findings except for soft tissue swelling and hematoma on the right frontal forehead. This is consistent with exam. Patient declines Tylenol. She will be discharged home in stable condition. She is given return precautions. Impression: 1. Mechanical fall 2. Facial contusion Lab Data Attestation: I reviewed the patient's lab results. Radiography Diagnostic Testing: Radiology Impression Brain CT 03/09/21 16:00 IMPRESSION: Soft tissue swelling and hematoma of the frontal forehead/ scalp. There is no underlying fracture. Electronically Signed: Sony Gonzalez MD at 16:24 EDT , Service support , Cervical Spine CT 03/09/21 16:00 IMPRESSION: Degenerative changes of the cervical spine. No acute abnormality of the spine. Electronically Signed: Sony Gonzalez MD at 16:50 EDT , Service support , Facial/Sinus 03/09/21 16:00 IMPRESSION: Soft tissue swelling and hematoma of the frontal forehead/ scalp. There is no underlying fracture. Electronically Signed: Sony Gonzalez MD at 16:49 EDT , Service support , Discharge Plan Triage Chief Complaint: Head Injury ED Provider: Kenny Pathak Dx/Rx/DC Orders Instructions: ED Facial Contusion Prescriptions: No Action acetaminophen 500 mg tablet 500 mg PO .Take As Directed RF: 0 aspirin [Adult Low Dose Aspirin] 81 mg tablet,delayed release (DR/EC) 81 mg PO QDAY RF: 0 metformin [Glucophage] 500 mg tablet 1,000 mg PO BID RF: 0 pioglitazone 45 mg tablet 45 mg PO QDAY RF: 0 magnesium oxide 400 mg capsule 400 mg capsule 400 mg PO QDAY RF: 0 multivitamin [Daily Multi-Vitamin] tablet 1 tab PO QAM RF: 0 [id number]-C-nia-[id number] [Osteo Bi-Flex Triple Strength] 750 mg-644 mg- 30 mg-1 mg tablet 1 tab PO QODAY RF: 0 omega-3 fatty acids [Fish Oil Concentrate] 1,000 mg capsule 1,000 mg PO DAILY RF: 0 hydrochlorothiazide 25 mg tablet 25 mg PO QDAY Qty: 90 RF: 3 sotalol 160 mg tablet See Rx Instructions .ROUTE .COMPLEX Qty: 180 RF: 3 amlodipine 2.5 mg tablet 2.5 mg PO DAILY RF: 0 warfarin 3 mg tablet 3 mg PO QDAY Qty: 90 RF: 3 simvastatin 20 mg tablet 20 mg PO QHS Qty: 90 RF: 3 losartan 100 mg tablet 100 mg PO QDAY Qty: 90 RF: 3 Primary Care Provider: Jose Patrick Referrals: Jose Patrick MD [Primary Care Provider] - Disposition Disposition: Home, Self Care
--- NOTE | 2021-03-09 16:00 | CT_ITS ---
EXAM: CT MAXILLOFACIAL WITHOUT INTRAVENOUS CONTRAST CLINICAL INDICATION: facial injury TECHNIQUE: Helically acquired images were obtained of the face without intravenous contrast. This CT exam was performed using one or more of the following dose reduction techniques: automated exposure control, adjustment of the mA and/or kV according to patient size, and/or use of iterative reconstruction technique. This report was created using [place] report [employer] technology. COMPARISON: None. FINDINGS: BONES/JOINTS: Degenerative changes of the mandibular condyles. SOFT TISSUES: Soft tissue swelling and hematoma of the frontal forehead/ scalp. There is no underlying fracture. VASCULATURE: There are atherosclerotic vascular calcifications. ORBITS: Unremarkable. Both globes are unremarkable. Extraocular muscles are normal. Retrobulbar fat appears unremarkable. SINUSES: Unremarkable as visualized. Clear. MASTOID AIR CELLS: Unremarkable as visualized. Clear. DENTAL: No acute findings. No periodontal osseous erosion. CT/Sinus/Facial Bone IMPRESSION: Soft tissue swelling and hematoma of the frontal forehead/ scalp. There is no underlying fracture. Electronically Signed: Sony Gonzalez MD at 16:49 EDT , Service support ,
--- NOTE | 2021-03-09 16:00 | CT_ITS ---
EXAM: CT HEAD WITHOUT INTRAVENOUS CONTRAST CLINICAL INDICATION: fall/blood thinners -- verbal orders from dr bunn TECHNIQUE: Multiple axial images were obtained of the head without intravenous contrast. This CT exam was performed using one or more of the following dose reduction techniques: automated exposure control, adjustment of the mA and/or kV according to patient size, and/or use of iterative reconstruction technique. This report was created using [employer] report generation technology. COMPARISON: None. FINDINGS: BRAIN AND EXTRA-AXIAL SPACES: Unremarkable. No intra- or extra-axial hemorrhage. No evidence of acute infarct. No intracranial mass or mass effect. There is preservation of the lombardo/white matter interface. Posterior fossa structures are unremarkable. Ventricles are appropriate for age. No hydrocephalus. Basal cisterns are patent. BONES/JOINTS: See below. SOFT TISSUES: Soft tissue swelling and hematoma of the frontal forehead/ scalp. There is no underlying fracture. SINUSES: Unremarkable as visualized. Clear. MASTOID AIR CELLS: Unremarkable. Clear. ORBITS: Visualized globes, extraocular muscles, optic nerves and retrobulbar fat appear unremarkable. CT/Brain/Head without Contrast IMPRESSION: Soft tissue swelling and hematoma of the frontal forehead/ scalp. There is no underlying fracture. Electronically Signed: Sony Gonzalez MD at 16:24 EDT , Service support ,
--- NOTE | 2021-03-09 16:00 | CT_ITS ---
EXAM: CT SPINE - CERVICAL WITHOUT IV REASON FOR EXAM: Female, 70 years old. NECK PAIN fall -- thinners Individualized dose optimization techniques were used for this CT. TECHNIQUE: Multiplanar images were obtained of the cervical spine. IV contrast was not utilized. COMPARISON: None. FINDINGS: The vertebral bodies do maintain their height. The odontoid process is intact. There is no anterolisthesis or fracture. No pre-vertebral soft tissue swelling is seen. The intravertebral disc height is lost. There are scattered lymph nodes in the neck. There are degenerative changes of the osseous structures. There is bilateral facet arthropathy. There is left foraminal stenosis at C5-6. There are atherosclerotic vascular calcifications. CT/Spine Cervical without Contras IMPRESSION: Degenerative changes of the cervical spine. No acute abnormality of the spine. Electronically Signed: Sony Gonzalez MD at 16:50 EDT , Service support ,
[2021-03-09 17:19] VITALS: PULSE 89; RESP 18; O2SAT 97
--- NOTE | 2021-03-09 17:19 | ED.RN ---
THIS NURSE REVIEWED D/C INSTRUCTIONS WITH PT. PT VERBALIZED UNDERSTANDING OF INSTRUCTIONS. PT DENIES FURTHER NEEDS OR QUESTIONS AT THIS TIME
== END 2021-03-09 17:20 | disposition home or self-care (01) ==
PROVIDERS: Emergency Provider Student in an Organized Health Care Education/Training Program; PCP Family Medicine
DX: S00.83XA Contusion of other part of head, initial encounter (principal); I48.0 Paroxysmal atrial fibrillation; I10 Essential (primary) hypertension; E78.5 Hyperlipidemia, unspecified; E11.9 Type 2 diabetes mellitus without complications; Z79.01 Long term (current) use of anticoagulants; Z79.84 Long term (current) use of oral hypoglycemic drugs; Z79.899 Other long term (current) drug therapy; W18.09XA Striking against other object with subsequent fall, initial encounter; Y93.01 Activity, walking, marching and hiking; Y92.89 Other specified places as the place of occurrence of the external cause; Y99.8 Other external cause status
CPT/HCPCS: 70450; 70486; 72125; 99282

== ENCOUNTER → 2021-03-20 12:23 | Outpatient (CLI) | payer MEDICARE, OTHER, SELFPAY ==
--- NOTE | 2021-03-20 12:25 | CT_ITS ---
STUDY: CT BRAIN WITHOUT CONTRAST REASON FOR EXAM: Female, 70 years old. head trama, on coumadin RADIATION DOSAGE (If Supplied By Facility): CTDIvol = ( 44.99 ) mGy, DLP = ( 812.98 ) mGycm TECHNIQUE: Transaxial CT imaging of the brain was performed without administration of intravenous contrast material. Individualized dose optimization techniques were used for this CT. COMPARISON: 03/09/2021 FINDINGS: Right frontal scalp hematoma just above the right orbit. Normal calvarium. Normal size ventricles and extra-axial spaces for the patient''s age. Normal white matter tracts of the cerebral hemispheres. Normal basal ganglia and thalami. Normal brainstem. Normal cerebellum. There is no intracranial hemorrhage. There are no findings of an acute ischemic infarction. Normal visualized paranasal sinuses. CT/Brain/Head without Contrast IMPRESSION: 1. Right super orbital soft tissue swelling/hematoma mildly smaller since prior study. 2. No acute intracranial hemorrhage or mass effect. Electronically Signed: Samuel Prado MD ([place]) at 12:43 EDT , Service support ,
== END ==
PROVIDERS: PCP Family Medicine; Visit Provider Family Medicine
DX: S09.90XA Unspecified injury of head, initial encounter (principal)
CPT/HCPCS: 70450

== ENCOUNTER 2021-04-03 14:09 | Outpatient (RCR) | payer MEDICARE, OTHER, SELFPAY ==
[2021-03-13 02:00] VITALS: BMI 28.6
[2021-04-03 14:16] LABS: INR Fingerstick 3.4; Prothrombin Time Fingerstick 37.3 SEC (11.9-14.4)
== END 2021-04-12 18:00 | disposition home or self-care (01) ==
LOC: MTLAB 14:09
PROVIDERS: Family Provider Family Medicine; PCP Family Medicine; Referring Provider Internal Medicine Cardiovascular Disease; Visit Provider Internal Medicine Cardiovascular Disease
DX: I48.0 Paroxysmal atrial fibrillation (principal); Z79.01 Long term (current) use of anticoagulants
CPT/HCPCS: 36416; 85610

== ENCOUNTER 2021-04-17 15:08 | Outpatient (RCR) | payer MEDICARE, OTHER, SELFPAY ==
[2021-04-12 20:38] VITALS: BMI 28.6
[2021-04-17 15:21] LABS: INR Fingerstick 2.3; Prothrombin Time Fingerstick 26.2 SEC (11.9-14.4)
== END 2021-05-12 18:00 | disposition home or self-care (01) ==
LOC: MTLAB 15:08
PROVIDERS: Family Provider Family Medicine; PCP Family Medicine; Referring Provider Internal Medicine Cardiovascular Disease; Visit Provider Internal Medicine Cardiovascular Disease
DX: I48.0 Paroxysmal atrial fibrillation (principal); Z79.01 Long term (current) use of anticoagulants
CPT/HCPCS: 36416; 85610

== ENCOUNTER 2021-06-04 14:35 | Outpatient (RCR) | payer MEDICARE, OTHER, SELFPAY ==
[2021-05-13 04:10] VITALS: BMI 28.6
[2021-05-19 15:30] LABS: INR Fingerstick 1.9; Prothrombin Time Fingerstick 21.9 SEC (11.9-14.4)
[2021-06-04 14:46] LABS: INR Fingerstick 2.7; Prothrombin Time Fingerstick 30.2 SEC (11.9-14.4)
== END 2021-06-13 18:00 | disposition home or self-care (01) ==
LOC: MTLAB 14:35
PROVIDERS: Family Provider Family Medicine; PCP Family Medicine; Referring Provider Internal Medicine Cardiovascular Disease; Visit Provider Internal Medicine Cardiovascular Disease
DX: I48.0 Paroxysmal atrial fibrillation (principal); Z79.01 Long term (current) use of anticoagulants
CPT/HCPCS: 36416; 85610

== ENCOUNTER 2021-07-10 15:05 | Outpatient (RCR) | payer MEDICARE, OTHER, SELFPAY ==
[2021-06-14 18:28] VITALS: BMI 28.6
[2021-07-10 15:30] LABS: INR Fingerstick 3.1; Prothrombin Time Fingerstick 35.5 SEC (11.9-14.4)
== END 2021-07-13 18:00 | disposition home or self-care (01) ==
LOC: MTLAB 15:05
PROVIDERS: Family Provider Family Medicine; PCP Family Medicine; Referring Provider Internal Medicine Cardiovascular Disease; Visit Provider Internal Medicine Cardiovascular Disease
DX: I48.0 Paroxysmal atrial fibrillation (principal); Z79.01 Long term (current) use of anticoagulants
CPT/HCPCS: 36416; 85610

== ENCOUNTER 2021-07-30 15:13 | Outpatient (RCR) | payer MEDICARE, OTHER, SELFPAY ==
[2021-07-14 01:48] VITALS: BMI 28.6
[2021-07-30 15:41] LABS: INR Fingerstick 1.9; Prothrombin Time Fingerstick 23.1 SEC (11.9-14.4)
== END 2021-07-30 23:59 | disposition home or self-care (01) ==
LOC: MTLAB 15:13
PROVIDERS: Family Provider Family Medicine; PCP Family Medicine; Referring Provider Internal Medicine Cardiovascular Disease; Visit Provider Internal Medicine Cardiovascular Disease
DX: I48.0 Paroxysmal atrial fibrillation (principal); Z79.01 Long term (current) use of anticoagulants
CPT/HCPCS: 36416; 85610

== ENCOUNTER 2021-08-06 08:39 | Outpatient (CLI) | payer MEDICARE, OTHER, SELFPAY ==
[2021-08-06 10:20] LABS: Absolute Lymphocyte Count 1.16 X10^3/uL (0.83-4.51); Absolute Neutrophil Count 2.8 X10^3/uL (2.0-7.7); Basophil# 0.04 X10^3/uL; Basophil% 0.8 % (0-1); Eosinophil# 0.23 X10^3/uL; Eosinophils% 4.6 % (0-5); Hematocrit 25.4 % (37-47); Hemoglobin 7.9 g/dL (12.0-15.0); Lymphocyte # 1.16 X10^3/ul (0.83-4.51); Lymphocyte % 23.4 % (19-41); Mean Corp Hgb Conc 31.1 g/dL (32-36); Mean Corpuscular Hgb 31.3 pg (27.0-32.0); Mean Corpuscular Volume 100.8 fL (81-99); Mean Platelet Vol. 9.5 fl (6.2-12.0); Monocyte# 0.75 X10^3/uL; Monocyte% 15.1 % (0-10); NRBC Flagged by Analyzer 0 % (0-5); Neutrophil # 2.76 X10^3/uL (2.7-7.7); Neutrophil % 55.7 % (47-70); Platelet Count 286 K/mm3 (150-450); RBC Distribution Width CV 17.1 % (11.6-14.6); RBC Distribution Width SD 61.7 fl (35.1-43.9); Red Blood Count 2.52 M/mm3 (4.2-5.4)
[2021-08-06 10:27] LABS: Hemoglobin A1c 6.5 % (3.8-5.6)
[2021-08-06 10:31] LABS: Microalbumin,Random Urine 40.8 mg/L (NO RANGE EST.); Microalbumin:Creatinine Ratio 38.5 mg/g CRE (<30 mg/g CRE)
[2021-08-06 10:33] LABS: ALB/GLOB Ratio 1.1 RATIO (0.9-2.4); AST(SGOT) 23 U/L (15-37); Alanine Aminotransfer ALT/SGPT 22 U/L (13-56); Albumin, Serum 3.3 g/dL (3.2-5.0); Alkaline Phosphatase 53 U/L (45-117); Anion Gap 4 (5-15); BUN 15 mg/dL (7-18); BUN/Creat Ratio 15.9 RATIO (10-20); Calcium,Total 8.8 mg/dL (8.5-10.1); Chloride 106 mmol/L (98-107); Cholesterol 109 mg/dL (200); Creatinine, Serum 0.94 mg/dL (0.55-1.02); EST Glomerular Filtration Rate 62 mL/min (>60); Est Glom Filt Rate - Afr Amer 75 mL/min (>60); Globulin 3.1 g/dL (2.2-4.2); Glucose 133 mg/dL (74-106); High Density Lipoprotein 65 mg/dL; Magnesium 1.9 mg/dL (1.6-2.6); Potassium 4.1 mmol/L (3.5-5.1); Protein, Total 6.4 g/dL (6.4-8.2); Sodium Level 138 mmol/L (136-145); Thyroid Stim Hormone (TSH) 2.45 uIU/mL (0.358-3.74); Triglycerides 114 mg/dL; Very Low Density Lipoprotein 23 mg/dL (5-40)
[2021-08-06 11:28] LABS: Vitamin D,25 Hydroxy 42.9 ng/mL
== END 2021-08-06 23:59 | disposition home or self-care (01) ==
LOC: MFPLAB 08:47
PROVIDERS: PCP Family Medicine; Referring Provider Family Medicine; Visit Provider Family Medicine
DX: I48.91 Unspecified atrial fibrillation (principal); E11.9 Type 2 diabetes mellitus without complications; E55.9 Vitamin D deficiency, unspecified
CPT/HCPCS: 36415; 80053; 80061; 82043; 82306; 82570; 83036; 83735; 84443; 85025

== ENCOUNTER 2021-08-12 15:50 | Outpatient (CLI) | payer MEDICARE, OTHER, SELFPAY ==
[2021-08-12 17:47] LABS: Absolute Lymphocyte Count 1.39 X10^3/uL (0.83-4.51); Absolute Neutrophil Count 2.8 X10^3/uL (2.0-7.7); Basophil# 0.05 X10^3/uL; Eosinophil# 0.17 X10^3/uL; Eosinophils% 3.4 % (0-5); Hematocrit 25.7 % (37-47); Hemoglobin 8.3 g/dL (12.0-15.0); Lymphocyte # 1.39 X10^3/ul (0.83-4.51); Lymphocyte % 27.5 % (19-41); Mean Corp Hgb Conc 32.3 g/dL (32-36); Mean Corpuscular Hgb 32.2 pg (27.0-32.0); Mean Corpuscular Volume 99.6 fL (81-99); Mean Platelet Vol. 9.5 fl (6.2-12.0); Monocyte# 0.67 X10^3/uL; Monocyte% 13.3 % (0-10); NRBC Flagged by Analyzer 0 % (0-5); Neutrophil # 2.76 X10^3/uL (2.7-7.7); Neutrophil % 54.6 % (47-70); Platelet Count 284 K/mm3 (150-450); RBC Distribution Width CV 16.5 % (11.6-14.6); RBC Distribution Width SD 60.3 fl (35.1-43.9); Red Blood Count 2.58 M/mm3 (4.2-5.4); White Blood Count 5.1 K/mm3 (4.4-11.0)
[2021-08-12 18:03] LABS: Vitamin B12 520 pg/mL (211-911)
[2021-08-12 18:14] LABS: Ferritin 29 ng/mL (8-252); Iron 30 ug/dL (50-170); Iron Binding Capacity,Total 377 ug/dL (250-450)
== END 2021-08-12 23:59 | disposition home or self-care (01) ==
LOC: MFPLAB 15:50
PROVIDERS: PCP Family Medicine; Referring Provider Family Medicine; Visit Provider Family Medicine
DX: D64.9 Anemia, unspecified (principal)
CPT/HCPCS: 36415; 82607; 82728; 82746; 83540; 83550; 85025

== ENCOUNTER 2021-08-18 14:46 | Outpatient (RCR) | payer MEDICARE, OTHER, SELFPAY ==
[2021-08-11 10:21] VITALS: BMI 28.6
[2021-08-18 15:01] LABS: INR Fingerstick 2.9; Prothrombin Time Fingerstick 33.2 SEC (11.7-14.9)
== END 2021-09-10 18:00 | disposition home or self-care (01) ==
LOC: MTLAB 14:46
PROVIDERS: Family Provider Family Medicine; PCP Family Medicine; Referring Provider Internal Medicine Cardiovascular Disease; Visit Provider Internal Medicine Cardiovascular Disease
DX: I48.0 Paroxysmal atrial fibrillation (principal); Z79.01 Long term (current) use of anticoagulants
CPT/HCPCS: 36416; 85610

== ENCOUNTER 2021-08-25 15:07 | Outpatient (CLI) | payer MEDICARE, OTHER, SELFPAY ==
[2021-08-25 17:54] LABS: Absolute Lymphocyte Count 1.22 X10^3/uL (0.83-4.51); Absolute Neutrophil Count 2.9 X10^3/uL (2.0-7.7); Basophil# 0.06 X10^3/uL; Basophil% 1.1 % (0-1); Eosinophil# 0.28 X10^3/uL; Eosinophils% 5.3 % (0-5); Hemoglobin 9.2 g/dL (12.0-15.0); Lymphocyte # 1.22 X10^3/ul (0.83-4.51); Lymphocyte % 23.2 % (19-41); Mean Corp Hgb Conc 32.9 g/dL (32-36); Mean Corpuscular Hgb 32.1 pg (27.0-32.0); Mean Corpuscular Volume 97.6 fL (81-99); Mean Platelet Vol. 9.8 fl (6.2-12.0); Monocyte# 0.73 X10^3/uL; Monocyte% 13.9 % (0-10); NRBC Flagged by Analyzer 0 % (0-5); Neutrophil # 2.94 X10^3/uL (2.7-7.7); Neutrophil % 56.1 % (47-70); Platelet Count 303 K/mm3 (150-450); RBC Distribution Width CV 16.3 % (11.6-14.6); RBC Distribution Width SD 58.7 fl (35.1-43.9); Red Blood Count 2.87 M/mm3 (4.2-5.4); White Blood Count 5.3 K/mm3 (4.4-11.0)
[2021-08-25 18:13] LABS: ALB/GLOB Ratio 1.1 RATIO (0.9-2.4); AST(SGOT) 22 U/L (15-37); Alanine Aminotransfer ALT/SGPT 20 U/L (13-56); Albumin, Serum 3.6 g/dL (3.2-5.0); Alkaline Phosphatase 61 U/L (45-117); Anion Gap 8 (5-15); BUN 20 mg/dL (7-18); BUN/Creat Ratio 21.3 RATIO (10-20); Calcium,Total 9.2 mg/dL (8.5-10.1); Chloride 103 mmol/L (98-107); Cholesterol 116 mg/dL (200); Creatinine, Serum 0.94 mg/dL (0.55-1.02); EST Glomerular Filtration Rate 62 mL/min (>60); Est Glom Filt Rate - Afr Amer 75 mL/min (>60); Ferritin 49 ng/mL (8-252); Globulin 3.3 g/dL (2.2-4.2); Glucose 127 mg/dL (74-106); High Density Lipoprotein 63 mg/dL; Iron 59 ug/dL (50-170); Iron Binding Capacity,Total 390 ug/dL (250-450); Magnesium 1.5 mg/dL (1.6-2.6); Potassium 3.9 mmol/L (3.5-5.1); Protein, Total 6.9 g/dL (6.4-8.2); Sodium Level 139 mmol/L (136-145); Triglycerides 140 mg/dL; Very Low Density Lipoprotein 28 mg/dL (5-40)
== END 2021-08-25 23:59 | disposition home or self-care (01) ==
LOC: MTLAB 15:09
PROVIDERS: PCP Family Medicine; Referring Provider Family Medicine; Visit Provider Family Medicine
DX: E11.59 Type 2 diabetes mellitus with other circulatory complications (principal); E11.69 Type 2 diabetes mellitus with other specified complication; E11.22 Type 2 diabetes mellitus with diabetic chronic kidney disease; N18.30 Chronic kidney disease, stage 3 unspecified; D64.9 Anemia, unspecified
CPT/HCPCS: 36415; 80053; 80061; 82306; 82728; 83036; 83540; 83550; 83735; 85025

== ENCOUNTER 2021-08-26 14:26 | Outpatient (CLI) | payer MEDICARE, OTHER, SELFPAY ==
[2021-08-26 18:27] LABS: Microalbumin:Creatinine Ratio 75.6 mg/g CRE (<30 mg/g CRE)
== END 2021-08-26 23:59 | disposition home or self-care (01) ==
PROVIDERS: PCP Family Medicine; Referring Provider Family Medicine; Visit Provider Family Medicine
DX: D64.9 Anemia, unspecified (principal); E11.59 Type 2 diabetes mellitus with other circulatory complications; E11.69 Type 2 diabetes mellitus with other specified complication; E11.22 Type 2 diabetes mellitus with diabetic chronic kidney disease; N18.30 Chronic kidney disease, stage 3 unspecified; E83.42 Hypomagnesemia
CPT/HCPCS: 82043; 82570

== ENCOUNTER 2021-09-25 07:48 | Outpatient (CLI) | payer MEDICARE, OTHER, SELFPAY | END 2021-09-25 23:59 | disposition home or self-care (01) | LOC: MTLAB 07:49 | PROVIDERS: PCP Family Medicine; Referring Provider Family Medicine; Visit Provider Family Medicine | DX: Z00.00 Encounter for general adult medical examination without abnormal findings (principal) ==

== ENCOUNTER 2021-09-25 08:01 | Outpatient (RCR) | payer MEDICARE, OTHER, SELFPAY ==
[2021-09-11 03:07] VITALS: BMI 28.6
[2021-09-25 10:04] LABS: Absolute Lymphocyte Count 1.28 X10^3/uL (0.83-4.51); Absolute Neutrophil Count 2.5 X10^3/uL (2.0-7.7); Basophil# 0.05 X10^3/uL; Basophil% 1.1 % (0-1); Eosinophil# 0.22 X10^3/uL; Eosinophils% 4.7 % (0-5); Hematocrit 34.1 % (37-47); Lymphocyte # 1.28 X10^3/ul (0.83-4.51); Lymphocyte % 27.5 % (19-41); Mean Corp Hgb Conc 32.3 g/dL (32-36); Mean Corpuscular Hgb 30.6 pg (27.0-32.0); Mean Corpuscular Volume 94.7 fL (81-99); Mean Platelet Vol. 9.4 fl (6.2-12.0); Monocyte# 0.64 X10^3/uL; Monocyte% 13.8 % (0-10); NRBC Flagged by Analyzer 0 % (0-5); Neutrophil # 2.45 X10^3/uL (2.7-7.7); Neutrophil % 52.7 % (47-70); Platelet Count 259 K/mm3 (150-450); RBC Distribution Width CV 14.6 % (11.6-14.6); RBC Distribution Width SD 50.4 fl (35.1-43.9); White Blood Count 4.7 K/mm3 (4.4-11.0)
[2021-09-25 10:12] LABS: International Normalized Ratio 2.2; Prothrombin Time (Protime)PT. 24.3 SECONDS (11.7-14.9)
[2021-09-25 10:44] LABS: Ferritin 35 ng/mL (8-252); Iron 54 ug/dL (50-170); Iron Binding Capacity,Total 358 ug/dL (250-450)
== END 2021-09-25 18:00 | disposition home or self-care (01) ==
LOC: MTLAB 08:01
PROVIDERS: Family Provider Family Medicine; PCP Family Medicine; Referring Provider Internal Medicine Cardiovascular Disease; Visit Provider Internal Medicine Cardiovascular Disease
DX: I48.0 Paroxysmal atrial fibrillation (principal); Z79.01 Long term (current) use of anticoagulants
CPT/HCPCS: 36415; 82728; 83540; 83550; 85025; 85610

== ENCOUNTER 2021-10-30 15:51 | Outpatient (RCR) | payer MEDICARE, OTHER, SELFPAY ==
[2021-10-11 05:32] VITALS: BMI 28.6
[2021-10-30 16:01] LABS: INR Fingerstick 2.6; Prothrombin Time Fingerstick 30.3 SEC (11.7-14.9)
== END 2021-10-30 18:00 | disposition home or self-care (01) ==
LOC: MTLAB 15:51
PROVIDERS: Family Provider Family Medicine; PCP Family Medicine; Referring Provider Internal Medicine Cardiovascular Disease; Visit Provider Internal Medicine Cardiovascular Disease
DX: I48.0 Paroxysmal atrial fibrillation (principal); Z79.01 Long term (current) use of anticoagulants
CPT/HCPCS: 36416; 85610

== ENCOUNTER 2021-11-13 14:31 | Emergency (ER) | payer MEDICARE, OTHER, SELFPAY ==
[2021-11-13 14:32] VITALS: BP 191/106; PULSE 80; RESP 16; TEMP 36.8; O2SAT 98; BMI 25.6
--- NOTE | 2021-11-13 14:41 | CT_ITS ---
EXAM: CT HEAD WITHOUT INTRAVENOUS CONTRAST CLINICAL INDICATION: Trauma injury. TECHNIQUE: Multiple axial images were obtained of the head without intravenous contrast. This CT exam was performed using one or more of the following dose reduction techniques: automated exposure control, adjustment of the mA and/or kV according to patient size, and/or use of iterative reconstruction technique. This report was created using [employer] report generation technology. RADIATION DOSE: CTDIvol = 44.99 mGy, DLP = 796.11 mGy-cm COMPARISON: CT head without contrast 03/20/2021. FINDINGS: BRAIN AND EXTRA-AXIAL SPACES: Unremarkable. No intra- or extra-axial hemorrhage. No evidence of acute infarct. No intracranial mass or mass effect. There is preservation of the lombardo/white matter interface. Posterior fossa structures are unremarkable. Ventricles are appropriate for age. No hydrocephalus. Basal cisterns are patent. BONES/JOINTS: Unremarkable. No discrete lytic or blastic abnormalities. SOFT TISSUES: Minimal midline frontal scalp soft tissue swelling. The large right frontal scalp hematoma has resolved. SINUSES: Unremarkable as visualized. Clear. MASTOID AIR CELLS: Unremarkable. Clear. ORBITS: Visualized globes, extraocular muscles, optic nerves and retrobulbar fat appear unremarkable. CT/Brain/Head without Contrast IMPRESSION: 1. No acute findings in the head/brain. 2. Interval resolution of large right frontal scalp hematoma overlying the right frontal sinus. Electronically Signed: Scott Alexander MD at 16:24 EDT ,
--- NOTE | 2021-11-13 14:47 | EDS_ITS ---
HPI History of Present Illness Chief Complaint: Fall Informant: patient Narrative Narrative: Patient had a mechanical fall today. She was wearing high traction shoes and carpeted floor and caught her toe. She fell to the ground. She landed on her hands knees and hit her head. She states she is walking around the knees do not really hurt her. No hand or wrist or arm pain. She did hit her head but no loss of consciousness at all. There is a hematoma on the forehead. There is an abrasion on the nose from rug burn. No epistaxis. No neck pain. No numbness tingling weakness. No chest pain or trouble breathing. [facility] Medical History (Updated 11/13/21 @ 16:[address] Fernando Christensen MD) Atrial flutter Cardiomyopathy in diseases classified elsewhere Diastolic dysfunction Dysphasia Essential (primary) hypertension Hyperlipidemia Paroxysmal atrial fibrillation Secondary pulmonary arterial hypertension Sick sinus syndrome Supraventricular tachycardia Syncope and collapse Type 2 diabetes mellitus Home Medications acetaminophen 500 mg tablet 500 mg PO .Take As Directed tab 07/07/17 [History Last Taken Unknown] aspirin 81 mg tablet,delayed release 81 mg PO QDAY 07/07/17 [History Last Taken Unknown] metformin 500 mg tablet 1,000 mg PO BID 07/07/17 [History Last Taken Unknown] pioglitazone 45 mg tablet 45 mg PO QDAY 07/07/17 [History Last Taken Unknown] glucosamine 750 gq-[id number]-eab no1 644 mg-C 30 mg-nia 1 mg tablet 1 tab PO QODAY 07/28/17 [History Last Taken Unknown] magnesium oxide 400 mg PO QDAY cap 07/28/17 [History Last Taken Unknown] multivitamin 1 tab PO QAM 07/28/17 [History Last Taken Unknown] omega-3 fatty acids 1,000 mg capsule 1,000 mg PO DAILY 05/21/19 [History Last Taken 06/16/19] hydrochlorothiazide 25 mg tablet 25 mg PO QDAY #90 tab 12/24/19 [Rx Last Taken Unknown] amlodipine 2.5 mg tablet 2.5 mg PO DAILY 02/12/21 [History Last Taken Unknown] warfarin 3 mg tablet 3 mg PO QDAY #90 tab 03/30/21 [Rx Last Taken Unknown] losartan 100 mg tablet 100 mg PO QDAY #90 tab 08/05/21 [Rx Last Taken Unknown] simvastatin 20 mg tablet 20 mg PO QHS #90 tab 08/05/21 [Rx Last Taken Unknown] sotalol 160 mg tablet See Rx Instructions .ROUTE .COMPLEX #180 tab 09/07/21 [Rx Last Taken Unknown] Allergy/AdvReac Type Severity Reaction Status Date / Time esomeprazole [From Nexium] AdvReac Severe Hives Verified 11/13/21 14:32 meperidine [From Demerol] AdvReac Severe Unknown Verified 11/13/21 14:32 povidone-iodine AdvReac Severe Unknown Verified 11/13/21 14:32 [From Betadine] soap [From Betadine] AdvReac Severe Unknown Verified 11/13/21 14:32 propoxyphene AdvReac Intermediate Unknown Verified 11/13/21 14:32 [From Darvocet-N] hydrocodone [From Vicodin] AdvReac Mild Nausea, Verified 11/13/21 14:32 headache oxycodone [From Percocet] AdvReac Mild Nausea Verified 11/13/21 14:32 Family History Father Hypertension Renal failure Mother Diabetes Hypertension HLD (hyperlipidemia) Lupus MVP (mitral valve prolapse) Brother Cancer Spine Cancer Sister Hypertension GERD (gastroesophageal reflux disease) Surgical History Biventricular cardiac pacemaker in situ (02/01/19) History of foot surgery History of hysterectomy History of radiofrequency ablation procedure for cardiac arrhythmia (2009) History of thumb surgery Social History Smoking Status: Never smoker alcohol intake: current Alcohol type: hard liquor substance use type: does not use seatbelt use: always ROS ROS ED Constitutional Constitutional ED: Denies chills or fever(s) Eyes Eyes: Denies blurry vision or change in vision ENT ENT ED: Reports other Details: Patient has hematoma on the forehead and abrasion of the mid upper portion of the nose. ; Denies ear pain, rhinorrhea or sore throat Cardiovascular Cardiovascular: Denies chest pain or palpitations Respiratory/Chest Respiratory/Chest: Denies cough or dyspnea Gastrointestinal Gastrointestinal: Denies abdominal pain, nausea or vomiting Genitourinary Genitourinary ED: Denies hematuria Musculoskeletal Musculoskeletal: Denies arthralgias, back pain, myalgias or neck pain Integumentary Reports Abrasions Neurologic Neurologic: Denies headache(s), paresthesias or weakness Endocrine Endocrinology: Denies polydipsia or polyuria Hematologic/Lymphatic Hematologic/Lymphatic: Reports easy bleeding, easy bruising and other Details: Patient is on Coumadin for history of intermittent atrial flutter and pacemaker. No heart valve. Last check was 30 October when her INR was 2.6. Allergic/Immunologic Allergic/Immunologic ED: Denies urticaria EXAM Physical Exam Const Vital Signs: 11/13/21 14:32 11/13/21 15:35 Temperature 98.2 F Temperature Source Temporal Pulse Rate 80 Respiratory Rate 16 Respiratory Effort Normal Respiratory Depth Normal Respiratory Pattern Normal Blood Pressure 191/106 H Blood Pressure Mean 134 Pulse Ox 98 Oxygen Delivery Method Room Air Room Air Positive well nourished and well developed Constitutional Narrative: Patient is up walking around the room. She is nontoxic pleasant conversant General Appearance ED: well developed and NAD HEENT HEENT Narrative: Patient has a hematoma in the mid upper section of the forehead. There is an abrasion of the upper bridge of the nose but no deformity. No septal hematoma. No contusion or abrasion around the eyes. There is no facial or bony tenderness at all. Eyes EOMs intact bilaterally Neck full ROM Neck Narrative: No cervical tenderness or pain with motion General: Negative for tenderness Resp normal respiratory effort and clear to auscultation bilaterally Cardio regular rhythm Jugular Venous Distention: other Other Details: Patient has a history of atrial fibrillation/flutter but her heart sounds quite regular now. Rate: regular rate GI normal to inspection, nondistended, normoactive bowel sounds and non-tender Palpation: soft Back/Spine normal to inspection Extremity normal to inspection Neuro oriented x3, no sensory deficits noted and gait normal Sensorium / Orientation: alert and oriented to person Motor Exam: strength 5/5 throughout Psych mental status grossly normal Skin Skin Narrative: Abrasions and nose and forehead. No other. MDM MDM MDM Narrative Medical decision making narrative: We have been trying to get results for CT on this patient. We have CT scans on multiple patients that we do not have readings for. I have looked at these images. We are contacting the radiology services. We have done this multiple times now. Evidently it appears as though the images might be read but nobody can access the actual reading. We are trying to get these results faxed to us. We have made multiple calls as have the radiology techs here trying to solve this problem. INR is therapeutic at 2.8. CT scan shows hematoma but no acute intracranial process. Patient is given cautions. She is given reasons to return. Lab Data Labs: Laboratory Results - last 24 hr 11/13/21 11/13/21 14:47 15:15 PT Cancelled 29.6 H INR Cancelled 2.8 Radiography Diagnostic Testing: Clinical Impression(s) from Imaging Studies Brain CT 11/13/21 14:41 IMPRESSION: 1. No acute findings in the head/brain. 2. Interval resolution of large right frontal scalp hematoma overlying the right frontal sinus. Electronically Signed: Scott Alexander MD at 16:24 EDT , EKG Initial EKG: Comments: EKG done by protocol due to history of atrial flutter. EKG read by me shows atrial paced rhythm with overall rate of 83. OH interval normal. QRS duration is slightly long and 126 ms. QTc is also long at 527. Discharge Plan Triage Chief Complaint: Fall ED Provider: Fernando Christensen Dx/Rx/DC Orders Clinical Impression: Closed head injury, Fall from other slipping, tripping, or stumbling, Warfarin- induced coagulopathy Instructions: ED Head Injury (Adult) Prescriptions: No Action acetaminophen 500 mg tablet 500 mg PO .Take As Directed RF: 0 aspirin [Adult Low Dose Aspirin] 81 mg tablet,delayed release (DR/EC) 81 mg PO QDAY RF: 0 metformin [Glucophage] 500 mg tablet 1,000 mg PO BID RF: 0 pioglitazone 45 mg tablet 45 mg PO QDAY RF: 0 magnesium oxide 400 mg capsule 400 mg capsule 400 mg PO QDAY RF: 0 multivitamin [Daily Multi-Vitamin] tablet 1 tab PO QAM RF: 0 [id number] [Osteo Bi-Flex Triple Strength] 750 mg-644 mg- 30 mg-1 mg tablet 1 tab PO QODAY RF: 0 omega-3 fatty acids [Fish Oil Concentrate] 1,000 mg capsule 1,000 mg PO DAILY RF: 0 hydrochlorothiazide 25 mg tablet 25 mg PO QDAY Qty: 90 RF: 3 amlodipine 2.5 mg tablet 2.5 mg PO DAILY RF: 0 warfarin 3 mg tablet 3 mg PO QDAY Qty: 90 RF: 3 simvastatin 20 mg tablet 20 mg PO QHS Qty: 90 RF: 3 losartan 100 mg tablet 100 mg PO QDAY Qty: 90 RF: 3 sotalol 160 mg tablet See Rx Instructions .ROUTE .COMPLEX Qty: 180 RF: 3 Primary Care Provider: Jose Patrick Referrals: Jose Patrick MD [Primary Care Provider] - As soon as possible Disposition Disposition: Home, Self Care
--- NOTE | 2021-11-13 14:49 | EKG12_ITS ---
Test Reason : AFIB Blood Pressure : / mmHG Vent. Rate : 083 BPM Atrial Rate : 083 BPM P-R Int : 160 ms QRS Dur : 126 ms QT Int : 430 ms P-R-T Axes : 068 -23 054 degrees QTc Int : 505 ms AV dual-paced rhythm Biventricular pacemaker detected Abnormal ECG Confirmed by ROYCE REEVES, JUSTYN ([id number]), acquisition editor TAB SCHAEFER ([id number]) on 11/16/2021 1:02:12 PM Referred By: Confirmed By:JUSTYN CRANE MD
[2021-11-13 15:59] LABS: International Normalized Ratio 2.8; Prothrombin Time (Protime)PT. 29.6 SECONDS (11.7-14.9)
== END 2021-11-13 16:40 | disposition home or self-care (01) ==
PROVIDERS: Emergency Provider Emergency Medicine; PCP Family Medicine; Visit Provider Emergency Medicine
DX: S00.83XA Contusion of other part of head, initial encounter (principal); I48.0 Paroxysmal atrial fibrillation; E11.9 Type 2 diabetes mellitus without complications; W01.10XA Fall on same level from slipping, tripping and stumbling with subsequent striking against unspecified object, initial encounter; S00.31XA Abrasion of nose, initial encounter; E78.5 Hyperlipidemia, unspecified; I10 Essential (primary) hypertension; Z79.01 Long term (current) use of anticoagulants; Z79.82 Long term (current) use of aspirin; Z79.84 Long term (current) use of oral hypoglycemic drugs; Z79.899 Other long term (current) drug therapy
CPT/HCPCS: 36415; 70450; 85610; 93005; 99282

== ENCOUNTER → 2021-11-16 | Outpatient (CLI) | payer MEDICARE, OTHER, SELFPAY | END | disposition home or self-care (01) | LOC: MFPLAB 09:04 | PROVIDERS: PCP Family Medicine; Visit Provider Family Medicine | DX: Z00.00 Encounter for general adult medical examination without abnormal findings (principal) ==

== ENCOUNTER → 2021-11-18 | Outpatient (CLI) | payer MEDICARE, OTHER, SELFPAY ==
[2021-11-18 15:18] LABS: Absolute Lymphocyte Count 1.47 X10^3/uL (0.83-4.51); Absolute Neutrophil Count 2.5 X10^3/uL (2.0-7.7); Basophil# 0.08 X10^3/uL; Basophil% 1.6 % (0-1); Eosinophil# 0.19 X10^3/uL; Eosinophils% 3.9 % (0-5); Hematocrit 40.7 % (37-47); Hemoglobin 12.8 g/dL (12.0-15.0); Lymphocyte # 1.47 X10^3/ul (0.83-4.51); Lymphocyte % 30.2 % (19-41); Mean Corp Hgb Conc 31.4 g/dL (32-36); Mean Corpuscular Hgb 29.5 pg (27.0-32.0); Mean Corpuscular Volume 93.8 fL (81-99); Mean Platelet Vol. 9.7 fl (6.2-12.0); Monocyte# 0.59 X10^3/uL; Monocyte% 12.1 % (0-10); NRBC Flagged by Analyzer 0 % (0-5); Neutrophil # 2.52 X10^3/uL (2.7-7.7); Platelet Count 247 K/mm3 (150-450); RBC Distribution Width CV 14.3 % (11.6-14.6); RBC Distribution Width SD 49.6 fl (35.1-43.9); Red Blood Count 4.34 M/mm3 (4.2-5.4); White Blood Count 4.9 K/mm3 (4.4-11.0)
[2021-11-18 15:34] LABS: ALB/GLOB Ratio 1.2 RATIO (0.9-2.4); AST(SGOT) 33 U/L (15-37); Alanine Aminotransfer ALT/SGPT 35 U/L (13-56); Albumin, Serum 3.9 g/dL (3.2-5.0); Alkaline Phosphatase 76 U/L (45-117); Anion Gap 9 (5-15); BUN 15 mg/dL (7-18); BUN/Creat Ratio 17.6 RATIO (10-20); Calcium,Total 9.8 mg/dL (8.5-10.1); Chloride 103 mmol/L (98-107); Cholesterol 119 mg/dL (200); Creatinine, Serum 0.85 mg/dL (0.55-1.02); EST Glomerular Filtration Rate 69 mL/min (>60); Est Glom Filt Rate - Afr Amer 84 mL/min (>60); Globulin 3.3 g/dL (2.2-4.2); Glucose 114 mg/dL (74-106); High Density Lipoprotein 62 mg/dL; Magnesium 1.7 mg/dL (1.6-2.6); Potassium 4.3 mmol/L (3.5-5.1); Protein, Total 7.2 g/dL (6.4-8.2); Sodium Level 137 mmol/L (136-145); Triglycerides 135 mg/dL; Very Low Density Lipoprotein 27 mg/dL (5-40)
[2021-11-18 15:36] LABS: Hemoglobin A1c 6.8 % (3.8-5.6)
[2021-11-18 15:39] LABS: Vitamin D,25 Hydroxy 65.4 ng/mL
== END | disposition home or self-care (01) ==
PROVIDERS: PCP Family Medicine; Referring Provider Family Medicine; Visit Provider Family Medicine
DX: E11.22 Type 2 diabetes mellitus with diabetic chronic kidney disease (principal); E11.69 Type 2 diabetes mellitus with other specified complication; E11.59 Type 2 diabetes mellitus with other circulatory complications; N18.30 Chronic kidney disease, stage 3 unspecified; E83.42 Hypomagnesemia
CPT/HCPCS: 36415; 80053; 80061; 82306; 83036; 83735; 85025

== ENCOUNTER 2021-12-15 14:06 | Outpatient (RCR) | payer MEDICARE, OTHER, SELFPAY ==
[2021-11-10 21:47] VITALS: BMI 28.6
[2021-12-15 14:16] LABS: INR Fingerstick 2.3; Prothrombin Time Fingerstick 27.2 SEC (11.7-14.9)
== END 2022-01-10 03:27 | disposition home or self-care (01) ==
LOC: MTLAB 14:06
PROVIDERS: Family Provider Family Medicine; PCP Family Medicine; Referring Provider Internal Medicine Cardiovascular Disease; Visit Provider Internal Medicine Cardiovascular Disease
DX: I48.0 Paroxysmal atrial fibrillation (principal); Z79.01 Long term (current) use of anticoagulants
CPT/HCPCS: 36416; 85610

== ENCOUNTER 2022-01-14 13:50 | Outpatient (RCR) | payer MEDICARE, OTHER, SELFPAY ==
[2022-01-10 03:27] VITALS: BMI 28.6
[2022-01-14 14:01] LABS: INR Fingerstick 2.3; Prothrombin Time Fingerstick 27.3 SEC (11.7-14.9)
== END 2022-01-14 18:00 | disposition home or self-care (01) ==
LOC: MTLAB 13:50
PROVIDERS: Family Provider Family Medicine; PCP Family Medicine; Referring Provider Internal Medicine Cardiovascular Disease; Visit Provider Internal Medicine Cardiovascular Disease
DX: I48.0 Paroxysmal atrial fibrillation (principal); Z79.01 Long term (current) use of anticoagulants
CPT/HCPCS: 36416; 85610

== ENCOUNTER 2022-02-16 15:20 | Outpatient (RCR) | payer MEDICARE, OTHER, SELFPAY ==
[2022-02-11 01:01] VITALS: BMI 28.6
[2022-02-16 15:50] LABS: INR Fingerstick 2.5; Prothrombin Time Fingerstick 28.7 SEC (11.7-14.9)
== END 2022-02-16 18:00 | disposition home or self-care (01) ==
LOC: MTLAB 15:20
PROVIDERS: Family Provider Family Medicine; PCP Family Medicine; Referring Provider Internal Medicine Cardiovascular Disease; Visit Provider Internal Medicine Cardiovascular Disease
DX: I48.0 Paroxysmal atrial fibrillation (principal); Z79.01 Long term (current) use of anticoagulants
CPT/HCPCS: 36416; 85610

== ENCOUNTER 2022-04-02 14:06 | Outpatient (RCR) | payer MEDICARE, OTHER, SELFPAY ==
[2022-03-13 02:33] VITALS: BMI 28.6
[2022-03-18 11:51] LABS: INR Fingerstick 1.8
[2022-04-02 14:16] LABS: INR Fingerstick 2.1; Prothrombin Time Fingerstick 25.1 SEC (11.7-14.9)
== END 2022-04-02 18:00 | disposition home or self-care (01) ==
LOC: MTLAB 14:06
PROVIDERS: Family Provider Family Medicine; PCP Family Medicine; Referring Provider Internal Medicine Cardiovascular Disease; Visit Provider Internal Medicine Cardiovascular Disease
DX: I48.0 Paroxysmal atrial fibrillation (principal); Z79.01 Long term (current) use of anticoagulants
CPT/HCPCS: 36416; 85610

== ENCOUNTER 2022-04-23 13:52 | Outpatient (RCR) | payer MEDICARE, OTHER, SELFPAY ==
[2022-04-13 10:27] VITALS: BMI 28.6
[2022-04-23 14:06] LABS: INR Fingerstick 2.8; Prothrombin Time Fingerstick 32.2 SEC (11.7-14.9)
== END 2022-05-12 18:00 | disposition home or self-care (01) ==
LOC: MTLAB 13:52
PROVIDERS: Family Provider Family Medicine; PCP Family Medicine; Referring Provider Internal Medicine Cardiovascular Disease; Visit Provider Internal Medicine Cardiovascular Disease
DX: I48.0 Paroxysmal atrial fibrillation (principal); Z79.01 Long term (current) use of anticoagulants
CPT/HCPCS: 36416; 85610

== ENCOUNTER 2022-05-24 16:28 | Outpatient (RCR) | payer MEDICARE, OTHER, SELFPAY ==
[2022-05-13 02:26] VITALS: BMI 28.6
[2022-05-24 16:35] LABS: INR Fingerstick 2.2; Prothrombin Time Fingerstick 26.1 SEC (11.7-14.9)
== END 2022-05-24 18:00 | disposition home or self-care (01) ==
LOC: MTLAB 16:28
PROVIDERS: Family Provider Family Medicine; PCP Family Medicine; Referring Provider Internal Medicine Cardiovascular Disease; Visit Provider Internal Medicine Cardiovascular Disease
DX: I48.0 Paroxysmal atrial fibrillation (principal); Z79.01 Long term (current) use of anticoagulants
CPT/HCPCS: 36416; 85610

== ENCOUNTER 2022-06-30 14:29 | Outpatient (RCR) | payer MEDICARE, OTHER, SELFPAY ==
[2022-06-13 06:27] VITALS: BMI 28.6
[2022-06-28 15:41] LABS: INR Fingerstick 4.7; Prothrombin Time Fingerstick 51.2 SEC (11.7-14.9)
[2022-06-28 16:00] LABS: Prothrombin Time (Protime)PT. 53.2 SECONDS (11.7-14.9)
[2022-06-30 16:03] LABS: International Normalized Ratio 2.7; Prothrombin Time (Protime)PT. 28.1 SECONDS (11.7-14.9)
== END 2022-06-30 16:29 | disposition home or self-care (01) ==
LOC: MTLAB 14:29
PROVIDERS: Family Provider Family Medicine; PCP Family Medicine; Referring Provider Internal Medicine Cardiovascular Disease; Visit Provider Internal Medicine Cardiovascular Disease
DX: I48.0 Paroxysmal atrial fibrillation (principal); Z79.01 Long term (current) use of anticoagulants
CPT/HCPCS: 36415; 36416; 85610

== ENCOUNTER 2022-07-14 15:41 | Outpatient (RCR) | payer MEDICARE, OTHER, SELFPAY ==
[2022-07-14 07:37] VITALS: BMI 28.6
[2022-07-14 16:45] LABS: INR Fingerstick 2.7
== END 2022-07-14 18:00 | disposition home or self-care (01) ==
LOC: MTLAB 15:41
PROVIDERS: Family Provider Family Medicine; PCP Family Medicine; Referring Provider Internal Medicine Cardiovascular Disease; Visit Provider Internal Medicine Cardiovascular Disease
DX: I48.0 Paroxysmal atrial fibrillation (principal); Z79.01 Long term (current) use of anticoagulants
CPT/HCPCS: 36416; 85610

== ENCOUNTER → 2022-07-22 | Outpatient (CLI) | payer MEDICARE, OTHER, SELFPAY | END | disposition home or self-care (01) | LOC: MFPLAB 13:54 | PROVIDERS: PCP Family Medicine; Referring Provider Family Medicine; Visit Provider Internal Medicine Cardiovascular Disease | DX: I48.0 Paroxysmal atrial fibrillation (principal); Z79.01 Long term (current) use of anticoagulants | CPT/HCPCS: 36415; 85610 ==

== ENCOUNTER 2022-07-30 14:32 | Outpatient (CLI) | payer MEDICARE, OTHER, SELFPAY ==
[2022-07-30 18:16] LABS: International Normalized Ratio 1.2; Prothrombin Time (Protime)PT. 15.2 SECONDS (11.7-14.9)
== END 2022-07-30 23:59 | disposition home or self-care (01) ==
PROVIDERS: PCP Family Medicine; Referring Provider Family Medicine; Visit Provider Internal Medicine Cardiovascular Disease
DX: Z79.01 Long term (current) use of anticoagulants (principal)
CPT/HCPCS: 36415; 85610

== ENCOUNTER 2022-08-27 14:09 | Outpatient (RCR) | payer MEDICARE, OTHER, SELFPAY ==
[2022-08-10 23:17] VITALS: BMI 28.6
[2022-08-16 09:55] LABS: INR Fingerstick 1.1; Prothrombin Time Fingerstick 14.2 SEC (11.7-14.9)
[2022-08-24 15:01] LABS: INR Fingerstick 1.3; Prothrombin Time Fingerstick 16.5 SEC (11.7-14.9)
[2022-08-30 16:56] LABS: INR Fingerstick 2.1; Prothrombin Time Fingerstick 24.5 SEC (11.7-14.9)
== END 2022-09-10 20:53 | disposition home or self-care (01) ==
LOC: MTLAB 14:09
PROVIDERS: Family Provider Family Medicine; PCP Family Medicine; Referring Provider Internal Medicine Cardiovascular Disease; Visit Provider Internal Medicine Cardiovascular Disease
DX: I48.0 Paroxysmal atrial fibrillation (principal); Z79.01 Long term (current) use of anticoagulants
CPT/HCPCS: 36416; 85610

== ENCOUNTER 2022-09-17 12:40 | Outpatient (RCR) | payer MEDICARE, OTHER, SELFPAY ==
[2022-09-10 20:54] VITALS: BMI 28.6
[2022-09-20 08:41] LABS: Prothrombin Time Fingerstick 22.2 SEC (11.7-14.9)
== END 2022-10-10 05:21 | disposition home or self-care (01) ==
LOC: MTLAB 12:40
PROVIDERS: Family Provider Family Medicine; PCP Family Medicine; Referring Provider Internal Medicine Cardiovascular Disease; Visit Provider Internal Medicine Cardiovascular Disease
DX: I48.0 Paroxysmal atrial fibrillation (principal); Z79.01 Long term (current) use of anticoagulants
CPT/HCPCS: 36416; 85610

== ENCOUNTER → 2022-09-23 | Outpatient (CLI) | payer MEDICARE, OTHER, SELFPAY ==
[2022-09-23 12:17] LABS: Absolute Lymphocyte Count 1.52 X10^3/uL (0.83-4.51); Absolute Neutrophil Count 3.3 X10^3/uL (2.0-7.7); Basophil# 0.08 X10^3/uL; Basophil% 1.4 % (0-1); Eosinophil# 0.37 X10^3/uL; Eosinophils% 6.3 % (0-5); Hematocrit 39.9 % (37-47); Hemoglobin 12.5 g/dL (12.0-15.0); Lymphocyte # 1.52 X10^3/ul (0.83-4.51); Lymphocyte % 25.8 % (19-41); Mean Corp Hgb Conc 31.3 g/dL (32-36); Mean Corpuscular Hgb 30.6 pg (27.0-32.0); Mean Corpuscular Volume 97.8 fL (81-99); Mean Platelet Vol. 9.5 fl (6.2-12.0); Monocyte# 0.66 X10^3/uL; Monocyte% 11.2 % (0-10); NRBC Flagged by Analyzer 0 % (0-5); Neutrophil # 3.25 X10^3/uL (2.7-7.7); Platelet Count 243 K/mm3 (150-450); RBC Distribution Width CV 14.2 % (11.6-14.6); RBC Distribution Width SD 50.9 fl (35.1-43.9); Red Blood Count 4.08 M/mm3 (4.2-5.4); White Blood Count 5.9 K/mm3 (4.4-11.0)
[2022-09-23 12:47] LABS: ALB/GLOB Ratio 1.1 RATIO (0.9-2.4); AST(SGOT) 22 U/L (15-37); Alanine Aminotransfer ALT/SGPT 25 U/L (13-56); Albumin, Serum 3.6 g/dL (3.2-5.0); Alkaline Phosphatase 68 U/L (45-117); Anion Gap 6 (5-15); BUN 21 mg/dL (7-18); BUN/Creat Ratio 28.3 RATIO (10-20); Calcium,Total 9.1 mg/dL (8.5-10.1); Chloride 103 mmol/L (98-107); Cholesterol 112 mg/dL (200); Creatinine, Serum 0.74 mg/dL (0.55-1.02); EST Glomerular Filtration Rate 81 mL/min (>60); Est Glom Filt Rate - Afr Amer 98 mL/min (>60); Globulin 3.3 g/dL (2.2-4.2); Glucose 112 mg/dL (74-106); High Density Lipoprotein 63 mg/dL; Magnesium 1.5 mg/dL (1.6-2.6); Phosphorus 3.4 mg/dL (2.5-4.9); Potassium 4.1 mmol/L (3.5-5.1); Protein, Total 6.9 g/dL (6.4-8.2); Sodium Level 136 mmol/L (136-145); Triglycerides 72 mg/dL; Very Low Density Lipoprotein 14 mg/dL (5-40)
[2022-09-23 12:48] LABS: Hemoglobin A1c 6.6 % (3.8-5.6)
[2022-09-23 12:52] LABS: PTHIN 57.9 pg/mL (18.4-80.1)
[2022-09-23 13:04] LABS: Microalbumin,Random Urine 11.6 mg/L (NO RANGE EST.); Microalbumin:Creatinine Ratio 50.2 mg/g CRE (<30 mg/g CRE); Protein, Urine (Random) 12.6 mg/dL (<11.9); Protein:Creat Ratio 545 mg/g CRE (0-200)
== END | disposition home or self-care (01) ==
LOC: MFPLAB 10:44
PROVIDERS: PCP Family Medicine; Referring Provider Family Medicine; Visit Provider Family Medicine
DX: E11.65 Type 2 diabetes mellitus with hyperglycemia (principal); E11.22 Type 2 diabetes mellitus with diabetic chronic kidney disease; N18.30 Chronic kidney disease, stage 3 unspecified; E83.42 Hypomagnesemia
CPT/HCPCS: 36415; 80053; 80061; 82043; 82570; 83036; 83735; 83970; 84100; 84156; 85025

== ENCOUNTER 2022-10-29 15:18 | Outpatient (RCR) | payer MEDICARE, OTHER, SELFPAY ==
[2022-10-10 05:21] VITALS: BMI 28.6
[2022-10-22 14:02] LABS: INR Fingerstick 1.5; Prothrombin Time Fingerstick 17.1 SEC (11.7-14.9)
== END 2022-10-29 16:18 | disposition home or self-care (01) ==
LOC: MTLAB 15:18
PROVIDERS: Family Provider Family Medicine; PCP Family Medicine; Referring Provider Internal Medicine Cardiovascular Disease; Visit Provider Internal Medicine Cardiovascular Disease
DX: I48.0 Paroxysmal atrial fibrillation (principal); Z79.01 Long term (current) use of anticoagulants
CPT/HCPCS: 36415; 36416; 85610

== ENCOUNTER 2022-12-01 15:20 | Outpatient (RCR) | payer MEDICARE, OTHER, SELFPAY ==
[2022-11-11 08:07] VITALS: BMI 28.6
[2022-12-01 15:49] LABS: INR Fingerstick 2.3; Prothrombin Time Fingerstick 25.5 SEC (11.7-14.9)
== END 2022-12-01 18:00 | disposition home or self-care (01) ==
LOC: MTLAB 15:20
PROVIDERS: Family Provider Family Medicine; PCP Family Medicine; Referring Provider Internal Medicine Cardiovascular Disease; Visit Provider Internal Medicine Cardiovascular Disease
DX: I48.0 Paroxysmal atrial fibrillation (principal); Z79.01 Long term (current) use of anticoagulants
CPT/HCPCS: 36416; 85610

== ENCOUNTER 2023-01-05 15:00 | Outpatient (RCR) | payer MEDICARE, OTHER, SELFPAY ==
[2022-12-11 02:41] VITALS: BMI 28.6
[2023-01-05 15:09] LABS: INR Fingerstick 1.5; Prothrombin Time Fingerstick 16.4 SEC (11.7-14.9)
[2023-01-18 08:29] LABS: Prothrombin Time Fingerstick 16.4 SEC (11.7-14.9)
[2023-01-18 08:30] LABS: INR Fingerstick 1.5
== END 2023-01-10 18:00 | disposition home or self-care (01) ==
LOC: MTLAB 15:00
PROVIDERS: Family Provider Family Medicine; PCP Family Medicine; Referring Provider Internal Medicine Cardiovascular Disease; Visit Provider Internal Medicine Cardiovascular Disease
DX: I48.0 Paroxysmal atrial fibrillation (principal); Z79.01 Long term (current) use of anticoagulants
CPT/HCPCS: 36416; 85610

== ENCOUNTER 2023-02-04 14:04 | Outpatient (RCR) | payer MEDICARE, OTHER, SELFPAY ==
[2023-01-11 02:20] VITALS: BMI 28.6
[2023-01-14 13:34] LABS: INR Fingerstick 2.3; Prothrombin Time Fingerstick 25.4 SEC (11.7-14.9)
[2023-02-04 14:16] LABS: Prothrombin Time Fingerstick 31.9 SEC (11.7-14.9)
== END 2023-02-04 18:00 | disposition home or self-care (01) ==
LOC: MTLAB 14:04
PROVIDERS: Family Provider Family Medicine; PCP Family Medicine; Referring Provider Internal Medicine Cardiovascular Disease; Visit Provider Internal Medicine Cardiovascular Disease
DX: I48.0 Paroxysmal atrial fibrillation (principal); Z79.01 Long term (current) use of anticoagulants
CPT/HCPCS: 36416; 85610

== ENCOUNTER → 2023-02-10 | Outpatient (CLI) | payer MEDICARE, OTHER, SELFPAY ==
[2023-02-10 15:22] LABS: Absolute Lymphocyte Count 1.49 X10^3/uL (0.83-4.51); Absolute Neutrophil Count 4.1 X10^3/uL (2.0-7.7); Basophil# 0.05 X10^3/uL; Basophil% 0.8 % (0-1); Eosinophil# 0.18 X10^3/uL; Eosinophils% 2.8 % (0-5); Hematocrit 43.7 % (37-47); Hemoglobin 14.2 g/dL (12.0-15.0); Lymphocyte # 1.49 X10^3/ul (0.83-4.51); Lymphocyte % 22.8 % (19-41); Mean Corp Hgb Conc 32.5 g/dL (32-36); Mean Corpuscular Hgb 31.6 pg (27.0-32.0); Mean Corpuscular Volume 97.3 fL (81-99); Mean Platelet Vol. 9.2 fl (6.2-12.0); Monocyte# 0.69 X10^3/uL; Monocyte% 10.6 % (0-10); NRBC Flagged by Analyzer 0 % (0-5); Neutrophil # 4.11 X10^3/uL (2.7-7.7); Neutrophil % 62.7 % (47-70); Platelet Count 276 K/mm3 (150-450); RBC Distribution Width CV 14.3 % (11.6-14.6); RBC Distribution Width SD 51.4 fl (35.1-43.9); Red Blood Count 4.49 M/mm3 (4.2-5.4); White Blood Count 6.5 K/mm3 (4.4-11.0)
[2023-02-10 15:58] LABS: Hemoglobin A1c 6.7 % (3.8-5.6)
[2023-02-10 16:05] LABS: Vitamin D,25 Hydroxy 47.5 ng/mL
[2023-02-10 16:34] LABS: ALB/GLOB Ratio 1.1 RATIO (0.9-2.4); AST(SGOT) 23 U/L (15-37); Alanine Aminotransfer ALT/SGPT 31 U/L (13-56); Albumin, Serum 3.8 g/dL (3.2-5.0); Alkaline Phosphatase 72 U/L (45-117); Anion Gap 6 (5-15); BUN 15 mg/dL (7-18); BUN/Creat Ratio 20.1 RATIO (10-20); Calcium,Total 9.6 mg/dL (8.5-10.1); Chloride 97 mmol/L (98-107); Cholesterol 131 mg/dL (200); Creatinine, Serum 0.74 mg/dL (0.55-1.02); EST Glomerular Filtration Rate 81 mL/min (>60); Est Glom Filt Rate - Afr Amer 98 mL/min (>60); Globulin 3.4 g/dL (2.2-4.2); Glucose 113 mg/dL (74-106); High Density Lipoprotein 64 mg/dL; Magnesium 1.7 mg/dL (1.6-2.6); Phosphorus 3.3 mg/dL (2.5-4.9); Potassium 3.8 mmol/L (3.5-5.1); Protein, Total 7.2 g/dL (6.4-8.2); Sodium Level 131 mmol/L (136-145); Triglycerides 146 mg/dL; Very Low Density Lipoprotein 29 mg/dL (5-40)
[2023-02-10 18:15] LABS: Protein:Creat Ratio 764 mg/g CRE (0-200)
== END | disposition home or self-care (01) ==
LOC: MFPLAB 12:16
PROVIDERS: PCP Family Medicine; Visit Provider Family Medicine
DX: M85.80 Other specified disorders of bone density and structure, unspecified site (principal); E11.69 Type 2 diabetes mellitus with other specified complication
CPT/HCPCS: 36415; 80053; 80061; 82306; 82570; 83036; 83735; 83970; 84100; 84156; 85025

== ENCOUNTER 2023-03-07 13:42 | Outpatient (RCR) | payer MEDICARE, OTHER, SELFPAY ==
[2023-02-11 02:01] VITALS: BMI 28.6
[2023-03-07 13:54] LABS: INR Fingerstick 3.5; Prothrombin Time Fingerstick 37.4 SEC (11.7-14.9)
== END 2023-03-07 18:00 | disposition home or self-care (01) ==
LOC: MTLAB 13:42
PROVIDERS: Family Provider Family Medicine; PCP Family Medicine; Referring Provider Internal Medicine Cardiovascular Disease; Visit Provider Internal Medicine Cardiovascular Disease
DX: I48.0 Paroxysmal atrial fibrillation (principal); Z79.01 Long term (current) use of anticoagulants
CPT/HCPCS: 36416; 85610

== ENCOUNTER → 2023-03-21 | Outpatient (CLI) | payer MEDICARE, OTHER, SELFPAY ==
[2023-03-21 18:02] LABS: International Normalized Ratio 2.6; Prothrombin Time (Protime)PT. 27.8 SECONDS (11.7-14.9)
[2023-03-21 18:26] LABS: Anion Gap 8 (5-15); BUN 17 mg/dL (7-18); Chloride 100 mmol/L (98-107); Creatinine, Serum 1.21 mg/dL (0.55-1.02); EST Glomerular Filtration Rate 46 mL/min (>60); Est Glom Filt Rate - Afr Amer 56 mL/min (>60); Glucose 143 mg/dL (74-106); Potassium 4.1 mmol/L (3.5-5.1); Sodium Level 136 mmol/L (136-145)
== END | disposition home or self-care (01) ==
LOC: MFPLAB 14:53
PROVIDERS: Internal Medicine Cardiovascular Disease; PCP Family Medicine; Visit Provider Family Medicine
DX: I48.0 Paroxysmal atrial fibrillation (principal); Z79.01 Long term (current) use of anticoagulants; R79.89 Other specified abnormal findings of blood chemistry
CPT/HCPCS: 36415; 80048; 85610

== ENCOUNTER → 2023-03-28 | Outpatient (CLI) | payer MEDICARE, OTHER, SELFPAY ==
--- NOTE | 2023-03-28 14:42 | ECHOD_ITS ---
Reason For Study: Heart Disease Procedure This was a 2D Doppler, Color Flow transthoracic echocardiogram. Exam performed in department. Left Ventricle Normal LV size. Left ventricular systolic function is normal. The estimated ejection fraction is 60 %. Stage 3 diastolic dysfunction. No regional wall motion abnormalities noted. Right Ventricle Normal RV size. ICD or pacer leads identified within the right ventricle. Normal systolic function. Atria Normal left atrium. Normal right atrium. Mitral Valve Normal mitral valve. Mild (1+) eccentric mitral valve insufficiency. Tricuspid Valve Normal tricuspid valve. Mild (1+) tricuspid valve insufficiency. Pulmonary artery systolic pressure is 30 mmHg. Aortic Valve Normal aortic valve. Trisinus/trileaflet aortic valve. Mild (1+) aortic valve insufficiency. Pulmonic Valve Normal pulmonic valve. Mild (1+) pulmonic valve insufficiency. Great Vessels Normal aortic root. The pulmonary artery is normal size. Normal inferior vena cava. Pericardium/Pleural No pericardial effusion. MMode/2D Measurements & Calculations LVIDd: 4.0 cm IVSd: 1.1 cm Ao root diam: 3.8 cm LVIDs: 2.5 cm LVPWd: 1.0 cm LA dimension: 3.5 cm RVDd: 3.1 cm FS: 36.9 % LAV(MOD-bp): 41.5 ml LA A4 area: 10.6 cm2 RA A4 area: 10.7 cm2 LAV(MOD-bp) Indexed: 25.0 ml/m2 LAV(MOD-sp2): 47.1 ml LAV(MOD-sp4): 24.9 ml TAPSE: 1.6 cm Time Measurements MV dec time: 0.25 sec Doppler Measurements & Calculations MV E max gregory: 66.4 cm/sec Lat Peak E' Gregory: 7.9 cm/sec Med Peak E' Gregory: 7.2 cm/sec MV A max gregory: 25.1 cm/sec E/E' lat: 8.4 E/E' med: 9.3 MV E/A: 2.6 MV V2 max: 81.2 cm/sec MV P1/2t max gregory: 81.7 cm/sec Ao V2 max: 84.9 cm/sec MV max P.6 mmHg MV P1/2t: 76.2 msec Ao max P.9 mmHg MV V2 mean: 35.2 cm/sec MV mean P.66 mmHg MV dec slope: 314.1 cm/sec2 MV V2 VTI: 21.2 cm MVA(P1/2t): 2.9 cm2 AI max gregory: 420.1 cm/sec LV V1 max: 69.4 cm/sec MR max gregory: 489.7 cm/sec AI max P.6 mmHg LV V1 max P.9 mmHg MR max P.9 mmHg AI dec slope: 193.6 cm/sec2 AI P1/2t: 635.6 msec PA V2 max: 60.5 cm/sec TR max gregory: 261.2 cm/sec TR max P.3 mmHg ECHO/Echo Complete Interpretation Summary Normal LV size. Left ventricular systolic function is normal. The estimated ejection fraction is 60 %. Mild (1+) eccentric mitral valve insufficiency. Pulmonary artery systolic pressure is 30 mmHg. Mild (1+) aortic valve insufficiency. Stage 3 diastolic dysfunction. Compared to previous study, the left ventricular systolic function is the same. . Ordering Physician: Yoanna Welch Referring Physician: Yoanna Welch Performed By: Malcolm Guillen RCS
== END | disposition home or self-care (01) ==
LOC: CVS 14:41
PROVIDERS: PCP Family Medicine; Referring Provider Physician Assistant Medical; Visit Provider Physician Assistant Medical
DX: I51.9 Heart disease, unspecified (principal)
CPT/HCPCS: 93306

== ENCOUNTER 2023-04-05 14:00 | Outpatient (RCR) | payer MEDICARE, OTHER, SELFPAY ==
[2023-03-29 08:33] VITALS: BP 188/88; PULSE 76; RESP 18; TEMP 35.9; BMI 23.1
--- NOTE | 2023-03-29 09:02 | HP.PCM_ITS ---
History of Present Illness Date of Service: 03/29/23 Chief Complaint: Chronic venous insufficiency, chronic venous hypertension with inflammation and ulceration, varicose veins with inflammation and ulceration?right lower extremity History of Wound: This is a 72-year-old female who is of relatively normal body habitus. She has a longstanding history of chronic venous disease in both lower extremities. She denies swelling. She denies a history of thrombophlebitis. She underwent endovenous laser ablation of the left great saphenous vein and the left accessory saphenous vein in May 2011. She subsequently underwent endovenous laser ablation of the left accessory saphenous vein and microph lebectomy of left lower extremity varicose veins in October 2011. She presented at this time with a recent history of spontaneous bleeding from a superficial varicosity near the right lateral malleolus. She has had approximately 6 prior episodes of bleeding from the site in the past. Most current episode occurred while she was vacationing in [place]. It occurred 2 weeks ago. Patient had flown to [place], where she was located when the episode occurred. Patient applied pressure to the area, and went to the local emergency department, where an absorbable suture was placed to eliminate the bleeding. She has had no additional bleeding since that time. She is on Coumadin long- term due to her cardiac conditions and presence of a pacemaker. She is active. She sleeps on a flat mattress at night. She does not use compression on a regular basis. Recent laboratories studies have been obtained on February 10, 2023, with results as follows: White blood count 6.5, hemoglobin 14.2, hematocrit 43.7, platelets 276,000, sodium 131, potassium 3.8, chloride 97, BUN 15, creatinine 0.74, glucose 113, hemoglobin A1c 6.7, calcium 9.6, magnesium 1.7, bilirubin 0.40, AST 23, ALT 31, alkaline phosphatase 72, total protein 7.2, albumin 3.8. [facility] Medical History Atrial flutter Cardiomyopathy in diseases classified elsewhere Chronic venous hypertension w/ulcer and inflammation involv right side Chronic venous insufficiency Diabetes mellitus Diastolic dysfunction Dysphasia Essential (primary) hypertension Hyperlipidemia Paroxysmal atrial fibrillation Secondary pulmonary arterial hypertension Sick sinus syndrome Spontaneous hemorrhage Supraventricular tachycardia Type 2 diabetes mellitus Varicose veins with ulcer and inflammation Home Medications acetaminophen 500 mg tablet 500 mg PO .Take As Directed 07/07/17 [History Last Taken Unknown] aspirin 81 mg tablet,delayed release (Adult Low Dose Aspirin) 81 mg PO QDAY 07/07/17 [History Last Taken Unknown] metformin 500 mg tablet (Glucophage) 1,000 mg PO BID 07/07/17 [History Last Taken Unknown] glucosamine 750 [id number] no1 644 mg-C 30 mg-nia 1 mg tablet (Osteo Bi-Flex Triple Strength) 1 tab PO QODAY 07/28/17 [History Last Taken Unknown] magnesium oxide 400 mg PO QDAY 07/28/17 [History Last Taken Unknown] multivitamin (Daily Multi-Vitamin tablet) 1 tab PO QAM 07/28/17 [History Last Taken Unknown] omega-3 fatty acids 1,000 mg capsule (Fish Oil Concentrate) 1,000 mg PO DAILY 05/21/19 [History Last Taken 06/16/19] hydrochlorothiazide 25 mg tablet 25 mg PO QDAY #90 tabs 12/24/19 [Rx Last Taken Unknown] dapagliflozin propanediol 5 mg tablet (Farxiga) 5 mg PO DAILY 02/18/22 [History Last Taken Unknown] ferrous sulfate 325 mg (65 mg iron) tablet,delayed release 325 mg PO BID 02/18/22 [History Last Taken Unknown] omeprazole 40 mg capsule,delayed release 40 mg PO DAILY 02/18/22 [History Last Taken Unknown] warfarin 3 mg tablet 3 mg PO QDAY #90 tabs 05/03/22 [Rx Last Taken Unknown] losartan 100 mg tablet 100 mg PO QDAY #90 tabs 09/21/22 [Rx Last Taken Unknown] sotalol 160 mg tablet See Rx Instructions .Route .COMPLEX #180 tabs 09/21/22 [Rx Last Taken Unknown] simvastatin 20 mg tablet 20 mg PO QHS #90 tabs 09/28/22 [Rx Last Taken Unknown] Allergy/AdvReac Type Severity Reaction Status Date / Time esomeprazole [From Nexium] AdvReac Severe Hives Verified 02/24/23 10:36 meperidine [From Demerol] AdvReac Severe Unknown Verified 02/24/23 10:36 povidone-iodine AdvReac Severe Unknown Verified 02/24/23 10:36 [From Betadine] soap [From Betadine] AdvReac Severe Unknown Verified 02/24/23 10:36 propoxyphene AdvReac Intermediate Unknown Verified 02/24/23 10:36 [From Darvocet-N] hydrocodone [From Vicodin] AdvReac Mild Nausea, Verified 02/24/23 10:36 headache oxycodone [From Percocet] AdvReac Mild Nausea Verified 02/24/23 10:36 Family History Father Hypertension Renal failure Mother Diabetes Hypertension HLD (hyperlipidemia) Lupus MVP (mitral valve prolapse) Brother Cancer Spine Cancer Sister Hypertension GERD (gastroesophageal reflux disease) Surgical History Biventricular cardiac pacemaker in situ (02/01/19) History of cardiac radiofrequency ablation History of foot surgery History of hysterectomy History of hysterectomy History of radiofrequency ablation procedure for cardiac arrhythmia (2009) History of thumb surgery History of thumb surgery Social History Smoking Status: Never smoker alcohol intake: current Alcohol type: hard liquor substance use type: does not use seatbelt use: always Vital Signs Vital Signs Vital Signs: 03/29/23 08:33 Temperature 96.6 F L Temperature Source Temporal Pulse Rate 76 Respiratory Rate 18 Blood Pressure 188/88 H Blood Pressure Mean 121 Blood Pressure Source Monitor Blood Pressure Position Semi-Fowlers Blood Pressure Location Left Arm Weight Weight: 135 lb Body Mass Index (BMI) 23.1 Physical Exam Const alert, oriented x3, no apparent distress, average body habitus and well nourished General Appearance: cooperative, comfortable, well kempt and well developed Orientation / Consciousness: awake, oriented to person, oriented to place and oriented to time HEENT normocephalic and head/scalp atraumatic Head and Scalp: normal to inspection, normocephalic and atraumatic External Ear: external ears normal Eyes PERRL and EOMs intact bilaterally General Eye: normal appearance of both eyes Resp normal respiratory effort, normal air movement, no retractions and no use of accessory muscles Effort and Inspection: able to speak in complete sentences Extremity no clubbing, cyanosis or edema, no calf tenderness and no pedal edema General Extremity: Negative for clubbing or cyanosis Skin Wound Narrative: The lower extremities demonstrate scattered varicosities bilaterally. Distal lower extremities are warm and well-perfused. Pedal pulses are palpable. No swelling or edema are noted. A small punctate site is noted near the right lateral malleolus, where the recent spontaneous bleeding episode occurred. Other bleeding episodes have occurred from the site as well. There is no sign of infection or cellulitis. Otherwise, there are no other wounds or ulcerations. Neuro oriented x3, CN's II-XII intact bilaterally, moves all extremities and no focal motor deficits Sensorium / Orientation: awake, alert, oriented to person, oriented to place and oriented to time Psych Appearance: grossly normal and appropriate Attitude: calm Activity / Motor Behavior: appropriate eye contact Speech: normal speech Mood & Affect: euthymic mood Thought Process: normal thought process Thought Content: normal thought content Attention / Concentration: attention grossly intact Debridement Note Debridement Note Post-Debridement Measurements and Additional Note: Post-Debridement Measurements/Treatment - Nurse 1 - General Ulcer Assessment Start: 03/29/23 08:31 Freq: Status: Active Protocol: ALY Activity Type Activity Date Activity User E-sign Co-sign Detail Recorded Client Recorded Date Recorded By Document 03/29/23 08:33 Desktop 03/29/23 08:44 RB 03/29/23 08:33 - Today's Visit Information Type of service Initial Visit Arrival Mode Ambulatory Transfer Assistance None Patient Identification Verified (Name & Yes ) Patient Requires Transmission-Based No Precautions Height and Weight Height 5 ft 4 in Weight 135 lb Weight in Pounds 135.0 lbs Body Mass Index (BMI) 23.1 BMI Classification Normal BSA - Teo 1.66 Vital Signs Temperature (97.8 F-99.1 F) 96.6 F L Temperature Source Temporal Pulse Rate (60-100) 76 Pulse Location Monitor Respiratory Rate (12-18) 18 Respiratory rate source Observation Blood Pressure (90/60-120/80) 188/88 H Blood Pressure Mean 121 Source Monitor Position Semi-Fowlers Blood Pressure Location Left Arm History Since Last Visit- (Skip if this is Patient's initial visit) Have you changed medications since your No last visit? Any new allergies or adverse reactions No Had a fall/change in ADL's that may No increase risk of falls Signs or symptoms of abuse and/or No neglect since last visit Have you been in the hospital since your No last visit? Has dressing in place as prescribed Yes Has compression in place as prescribed No Has offloadiing in place as prescribed No Experienced any changes in pain level or No management Pain Scale: 0-10 Numeric Is Patient Pain Free? Yes Neuropathy Assessment Feet - Top Side and Bottom <Entered> (a) Communication Assessment Preferred language Mongolian Felt Checker Required No Able to Read Yes Able to Write Yes Communication Tools None Caregiver Communication Skills No Impairment Impairment Right Hearing Abillity Normal Left Hearing Abillity Normal Visual Assistive Devices Glasses Teaching Assessment Preferences Verbal,Written, Demonstration Barriers to Learning None Readiness To Learn Good Willingness to Engage in Self Management Med Activies Readiness to Engage in Self Management Med Activities Anxiety Level Calm Cooperation Cooperative Perception Coherent Interest in Health Problem Asks Questions Does Patient Smoke tobacco or other No substances Smoking Status Never smoker Is Patient Diabetic Yes Functional Assessment Recent Decline in Ability to Perform Denies Any Declines 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 Revenue Field Agent to contact place of jew No Teaching: Wound Center *Welcome to the Wound Center -Person Taught Patient -Teaching Method Discussion, Demonstration -Response to teaching Verbalize understanding (a) 1 - + throughout WC - Nurse 1 - General Ulcer Measurement Start: 03/29/23 08:31 Freq: Status: Active Protocol: Activity Type Activity Date Activity User E-sign Co-sign Detail Recorded Client Recorded Date Recorded By Document 03/29/23 08:33 RB Desktop 03/29/23 08:44 RB 03/29/23 08:33 Wound Center Nurse 1 1. R lateral ankle -Combined with other wound No -Current Size (cm) - Length 0.1 -Current Size (cm) - Width 0.1 -Current Size (cm) - Depth 0.1 -Total Square Cm 0.01 -Photo Taken Yes -Tunneling No -Undermining/Tunneling No -Circular Undermining No -Exudate Amt None Present -Wound Margin Distinct, Outline Attached -Granulation Amt Large (67-100%) -Granulation Quality [place] -Slough/Fibrin Yes -Necrosis Amt Small (1-33%) -Necrotic Tissue Type Adherent Slough -Structure Exposed N/A -Texture (Liza-wound Skin Appearance) Assessed -Moisture (Liza-wound Skin Appearance) Assessed -Color (Liza-wound Skin Appearance) Assessed -Temperature (Liza-wound Skin No Abnormality Appearance) (Pt Warm) -Tenderness on Palpation (Liza-wound No Skin Appearance) -Foul Odor after Cleansing No Lower Limb Edema Present Yes Right Calf (cm) 34 Right Ankle (cm) 20.2 Left Calf (cm) 33 Left Ankle (cm) 20 Assessment/Plan Assessment/Plan (1) Chronic venous hypertension w/ulcer and inflammation involv right side: CODE(S): I87.331 - Chronic venous hypertension (idiopathic) with ulcer and inflammation of right lower extremity (2) Varicose veins with ulcer and inflammation: CODE(S): I83.209 - Varicose veins of unspecified lower extremity with both ulcer of unspecified site and inflammation; L97.909 - Non-pressure chronic ulcer of unspecified part of unspecified lower leg with unspecified severity (3) Chronic venous insufficiency: CODE(S): I87.2 - Venous insufficiency (chronic) (peripheral) (4) Spontaneous hemorrhage: CODE(S): R58 - Hemorrhage, not elsewhere classified (5) Biventricular cardiac pacemaker in situ: CODE(S): Z95.0 - Presence of cardiac pacemaker (6) Sick sinus syndrome: CODE(S): I49.5 - Sick sinus syndrome (7) Paroxysmal atrial fibrillation: CODE(S): I48.0 - Paroxysmal atrial fibrillation (8) Supraventricular tachycardia: CODE(S): I47.1 - Supraventricular tachycardia (9) Cardiomyopathy in diseases classified elsewhere: CODE(S): I43 - Cardiomyopathy in diseases classified elsewhere (10) Secondary pulmonary arterial hypertension: CODE(S): I27.21 - Secondary pulmonary arterial hypertension (11) Essential (primary) hypertension: CODE(S): I10 - Essential (primary) hypertension (12) Diastolic dysfunction: CODE(S): I51.9 - Heart disease, unspecified (13) Hyperlipidemia: CODE(S): E78.5 - Hyperlipidemia, unspecified QUALIFIERS: Hyperlipidemia type: pure hypercholesterolemia Qualified Code(s): E78.00 - Pure hypercholesterolemia, unspecified; E78.0 - Pure hypercholesterolemia (14) Anticoagulant long-term use: CODE(S): 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 She has a longstanding history of chronic venous disease. Her presentation is consistent with chronic venous insufficiency, venous hypertension with inflammation and ulceration, varicose veins with inflammation and ulceration, etc. We are to implement conservative treatment measures, which have been discussed with the patient thoroughly. Her weight appears to be optimal. She is to continue sleeping on a flat mattress at night. Leg elevation is to be implemented during daytime hours, is much as possible. The patient's legs are to be elevated to heart level, or higher. Prolonged idle sitting is to be minimized. Activity has been encouraged. We are to implement compression today by means of Tubigrip's of at least 20 to 30 mmHg compression. She has been provided a prescription for graduated compression stockings of 20 to 30 mmHg compression, which are to be obtained at a local medical supply store, and she is to be measured and fitted appropriately. If further bleeding occurs, the patient is to elevate and apply compression. These measures have been discussed in detail. We are to obtain a venous duplex examination to assess the status of the venous anatomy in the lower extremities. It is to be determined whether a venous ablation procedure may be of benefit to the patient, in an effort to minimize spontaneous bleeding episodes in the future. The patient is to return following a venous duplex examination. Total time: 50 minutes
--- NOTE | 2023-04-05 13:53 | VDLE_ITS ---
Reason For Study: BLE Swelling RIGHT LEFT CFV is compressible, spontaneous, phasic, CFV is compressible, spontaneous, phasic, competent and demonstrates normal competent, and demonstrates normal augmentation. augmentation. FV is compressible, spontaneous, phasic, FV is compressible, spontaneous, phasic, competent and demonstrates normal competent and demonstrates normal augmentation. augmentation. POP V is compressible, spontaneous, phasic, POP V is compressible, spontaneous, phasic, competent and demonstrates normal competent and demonstrates normal augmentation. augmentation. T/P Trunk is compressible. T/P Trunk is compressible. PTV is compressible. PTV is compressible. RT PerV is compressible. LT PerV is compressible. SFJ is competent and measures 0.51 cm. SFJ is competent and measures 0.52 cm. GSV proximal thigh measures 0.20 x 0.19 cm. HX EVLA throughout GSV GSV at knee measures 0.20 x 0.21 cm. Varicosities noted throughout thigh. SSV proximal calf is competent and measures ASV proximal calf is INCOMPETENT for greater 0.30 x 0.32 cm. than 0.5 seconds and measures 0.44 x 0.47 cm. Procedure ASV mid calf is INCOMPETENT for greater than This is a venous duplex using B-mode, color 0.5 seconds and measures 0.46 x 0.45 cm. flow and spectral Doppler. SSV proximal calf is competent and measures Exam performed in department. 0.25 x 0.23 cm. The exam was diagnostic. VL/Venous Duplex US - Darrius Extrem Interpretation Summary Deep veins of the lower extremities are bilaterally patent and compressible seg mentally. There is no evidence of deep vein thrombosis on either side. Valvular competence appears in tact within the proximal deep venous systems bilaterally. The right great saphenous vein appear s patent and compressible segmentally. The left great saphenous vein is absent, having previ ously undergone endothermal ablation. Sapheno-femoral junctions are bilaterally competent . The right great saphenous vein appears segmentally competent. Small saphenous veins are patent and competent bilaterally. Accessory saphenous veins in the left proximal calf and mid-calf a re incompetent. Superficial varicosities are noted in the left thigh. Ordering Physician: Erasto Garcia Referring Physician: Erasto Garcia Performed By: Otf Gilbert RVT
== END 2023-04-19 15:08 | disposition home or self-care (01) ==
LOC: WC 14:00
PROVIDERS: PCP Family Medicine; Referring Provider Surgery; Visit Provider Surgery
DX: I87.331 Chronic venous hypertension (idiopathic) with ulcer and inflammation of right lower extremity (principal); I83.209 Varicose veins of unspecified lower extremity with both ulcer of unspecified site and inflammation; I43 Cardiomyopathy in diseases classified elsewhere; I27.21 Secondary pulmonary arterial hypertension; E11.59 Type 2 diabetes mellitus with other circulatory complications; I49.5 Sick sinus syndrome; I48.0 Paroxysmal atrial fibrillation; I47.10 Supraventricular tachycardia, unspecified; R58 Hemorrhage, not elsewhere classified; I10 Essential (primary) hypertension; I51.9 Heart disease, unspecified; E78.5 Hyperlipidemia, unspecified; Z79.01 Long term (current) use of anticoagulants; Z98.890 Other specified postprocedural states; Z90.710 Acquired absence of both cervix and uterus; Z95.0 Presence of cardiac pacemaker; Z79.84 Long term (current) use of oral hypoglycemic drugs
CPT/HCPCS: 93970; 99213; G0463

== ENCOUNTER 2023-04-19 08:55 | Outpatient (RCR) | payer MEDICARE, OTHER, SELFPAY ==
[2023-04-19 09:05] VITALS: BP 172/87; PULSE 88; RESP 18; TEMP 36.1
--- NOTE | 2023-04-19 14:38 | HP.PCM_ITS ---
History of Present Illness Date of Service: 04/19/23 Chief Complaint: Chronic venous insufficiency, chronic venous hypertension with inflammation and ulceration, varicose veins with inflammation and ulceration?right lower extremity History of Wound: This is a 72-year-old female who is of relatively normal body habitus. She has a longstanding history of chronic venous disease in both lower extremities. She denies swelling. She denies a history of thrombophlebitis. She underwent endovenous laser ablation of the left great saphenous vein and the left accessory saphenous vein in May 2011. She subsequently underwent endovenous laser ablation of the left accessory saphenous vein and microph lebectomy of left lower extremity varicose veins in October 2011. She presented at this time with a recent history of spontaneous bleeding from a superficial varicosity near the right lateral malleolus. She has had approximately 6 prior episodes of bleeding from the site in the past. Most current episode occurred while she was vacationing in [place]. It occurred 2 weeks ago. Patient had flown to [place], where she was located when the episode occurred. Patient applied pressure to the area, and went to the local emergency department, where an absorbable suture was placed to eliminate the bleeding. She has had no additional bleeding since that time. She is on Coumadin long- term due to her cardiac conditions and presence of a pacemaker. She is active. She sleeps on a flat mattress at night. She does not use compression on a regular basis. Recent laboratories studies have been obtained on February 10, 2023, with results as follows: White blood count 6.5, hemoglobin 14.2, hematocrit 43.7, platelets 276,000, sodium 131, potassium 3.8, chloride 97, BUN 15, creatinine 0.74, glucose 113, hemoglobin A1c 6.7, calcium 9.6, magnesium 1.7, bilirubin 0.40, AST 23, ALT 31, alkaline phosphatase 72, total protein 7.2, albumin 3.8. [facility] Medical History Atrial flutter Cardiomyopathy in diseases classified elsewhere Chronic venous hypertension w/ulcer and inflammation involv right side Chronic venous insufficiency Diabetes mellitus Diastolic dysfunction Dysphasia Essential (primary) hypertension Hyperlipidemia Paroxysmal atrial fibrillation Secondary pulmonary arterial hypertension Sick sinus syndrome Spontaneous hemorrhage Supraventricular tachycardia Type 2 diabetes mellitus Varicose veins with ulcer and inflammation Home Medications acetaminophen 500 mg tablet 500 mg PO .Take As Directed 07/07/17 [History Last Taken Unknown] aspirin 81 mg tablet,delayed release (Adult Low Dose Aspirin) 81 mg PO QDAY 07/07/17 [History Last Taken Unknown] metformin 500 mg tablet (Glucophage) 1,000 mg PO BID 07/07/17 [History Last Taken Unknown] glucosamine 750 [id number] no1 644 mg-C 30 mg-nia 1 mg tablet (Osteo Bi-Flex Triple Strength) 1 tab PO QODAY 07/28/17 [History Last Taken Unknown] magnesium oxide 400 mg PO QDAY 07/28/17 [History Last Taken Unknown] multivitamin (Daily Multi-Vitamin tablet) 1 tab PO QAM 07/28/17 [History Last Taken Unknown] omega-3 fatty acids 1,000 mg capsule (Fish Oil Concentrate) 1,000 mg PO DAILY 05/21/19 [History Last Taken 06/16/19] hydrochlorothiazide 25 mg tablet 25 mg PO QDAY #90 tabs 12/24/19 [Rx Last Taken Unknown] dapagliflozin propanediol 5 mg tablet (Farxiga) 5 mg PO DAILY 02/18/22 [History Last Taken Unknown] ferrous sulfate 325 mg (65 mg iron) tablet,delayed release 325 mg PO BID 02/18/22 [History Last Taken Unknown] omeprazole 40 mg capsule,delayed release 40 mg PO DAILY 02/18/22 [History Last Taken Unknown] warfarin 3 mg tablet 3 mg PO QDAY #90 tabs 05/03/22 [Rx Last Taken Unknown] losartan 100 mg tablet 100 mg PO QDAY #90 tabs 09/21/22 [Rx Last Taken Unknown] sotalol 160 mg tablet See Rx Instructions .Route .COMPLEX #180 tabs 09/21/22 [Rx Last Taken Unknown] simvastatin 20 mg tablet 20 mg PO QHS #90 tabs 09/28/22 [Rx Last Taken Unknown] Allergy/AdvReac Type Severity Reaction Status Date / Time esomeprazole [From Nexium] AdvReac Severe Hives Verified 02/24/23 10:36 meperidine [From Demerol] AdvReac Severe Unknown Verified 02/24/23 10:36 povidone-iodine AdvReac Severe Unknown Verified 02/24/23 10:36 [From Betadine] soap [From Betadine] AdvReac Severe Unknown Verified 02/24/23 10:36 propoxyphene AdvReac Intermediate Unknown Verified 02/24/23 10:36 [From Darvocet-N] hydrocodone [From Vicodin] AdvReac Mild Nausea, Verified 02/24/23 10:36 headache oxycodone [From Percocet] AdvReac Mild Nausea Verified 02/24/23 10:36 Family History Father Hypertension Renal failure Mother Diabetes Hypertension HLD (hyperlipidemia) Lupus MVP (mitral valve prolapse) Brother Cancer Spine Cancer Sister Hypertension GERD (gastroesophageal reflux disease) Surgical History Biventricular cardiac pacemaker in situ (02/01/19) History of cardiac radiofrequency ablation History of foot surgery History of hysterectomy History of hysterectomy History of radiofrequency ablation procedure for cardiac arrhythmia (2009) History of thumb surgery History of thumb surgery Social History Smoking Status: Never smoker alcohol intake: current Alcohol type: hard liquor substance use type: does not use seatbelt use: always Vital Signs Vital Signs Vital Signs: 04/19/23 09:05 Temperature 97 F L Temperature Source Temporal Pulse Rate 88 Respiratory Rate 18 Blood Pressure 172/87 H Blood Pressure Mean 115 Physical Exam Const alert, oriented x3, no apparent distress, average body habitus and well nourished General Appearance: cooperative, comfortable, well kempt and well developed Orientation / Consciousness: awake, oriented to person, oriented to place and oriented to time HEENT normocephalic and head/scalp atraumatic Head and Scalp: normal to inspection, normocephalic and atraumatic External Ear: external ears normal Eyes PERRL and EOMs intact bilaterally General Eye: normal appearance of both eyes Resp normal respiratory effort, normal air movement, no retractions and no use of accessory muscles Effort and Inspection: able to speak in complete sentences Extremity no clubbing, cyanosis or edema, no calf tenderness and no pedal edema General Extremity: Negative for clubbing or cyanosis Skin Wound Narrative: The lower extremities demonstrate scattered varicosities bilaterally. Distal lower extremities are warm and well-perfused. Pedal pulses are palpable. No swelling or edema are noted. The site of recent bleeding near the right lateral malleolus is now completely healed. There is no area identifiable as the recent site of bleeding. There is no opening or ulceration at this site. There is now nothing recognizable as the source of bleeding in this area. Neuro oriented x3, CN's II-XII intact bilaterally, moves all extremities and no focal motor deficits Sensorium / Orientation: awake, alert, oriented to person, oriented to place and oriented to time Psych Appearance: grossly normal and appropriate Attitude: calm Activity / Motor Behavior: appropriate eye contact Speech: normal speech Mood & Affect: euthymic mood Thought Process: normal thought process Thought Content: normal thought content Attention / Concentration: attention grossly intact Debridement Note Debridement Note No debridement was completed: No debridement was completed today (There are no open wounds or ulcerations.) Post-Debridement Measurements and Additional Note: Post-Debridement Measurements/Treatment - Nurse 1 - General Ulcer Assessment Start: 04/19/23 09:05 Freq: Status: Active Protocol: ALY Activity Type Activity Date Activity User E-sign Co-sign Detail Recorded Client Recorded Date Recorded By Document 04/19/23 09:05 Desktop 04/19/23 09:07 RB 04/19/23 09:05 - Today's Visit Information Type of service Follow-up Visit (Physician/[employer] ) Arrival Mode Ambulatory Transfer Assistance None Patient Identification Verified (Name & Yes ) Patient Requires Transmission-Based No Precautions Vital Signs Temperature (97.8 F-99.1 F) 97 F L Temperature Source Temporal Pulse Rate (60-100) 88 Pulse Location Monitor Respiratory Rate (12-18) 18 Respiratory rate source Observation Blood Pressure (90/60-120/80) 172/87 H Blood Pressure Mean 115 History Since Last Visit- (Skip if this is Patient's initial visit) Have you changed medications since your No last visit? Any new allergies or adverse reactions No Had a fall/change in ADL's that may No increase risk of falls Signs or symptoms of abuse and/or No neglect since last visit Have you been in the hospital since your No last visit? Has dressing in place as prescribed Yes Has compression in place as prescribed Yes Has offloadiing in place as prescribed No Experienced any changes in pain level or No management Pain Scale: 0-10 Numeric Is Patient Pain Free? Yes - Nurse 1 - General Ulcer Measurement Start: 04/19/23 09:05 Freq: Status: Active Protocol: Activity Type Activity Date Activity User E-sign Co-sign Detail Recorded Client Recorded Date Recorded By Document 04/19/23 09:05 RB Desktop 04/19/23 09:07 RB 04/19/23 09:05 Wound Center Nurse 1 1. R lateral ankle -Combined with other wound No -Current Size (cm) - Length 0 -Current Size (cm) - Width 0 -Current Size (cm) - Depth 0 -Total Square Cm 0 -Photo Taken Yes -Epithelialization Large 67-100% Lower Limb Edema Present Yes Right Calf (cm) 35 Right Ankle (cm) 20.5 WC - Nurse 2 - General Ulcer CM Notes Start: 04/19/23 09:05 Freq: Status: Active Protocol: Activity Type Activity Date Activity User E-sign Co-sign Detail Recorded Client Recorded Date Recorded By Document 04/19/23 13:[address] [id number] 04/19/23 13:37 PL 04/19/23 13:37 Wound Center Nurse 2 1. R lateral ankle -Time 09:13 -Procedure Performed No -Wound/Ulcer Outcome Healed- Epithelialized Pain Scale: 0-10 Numeric Is Patient Pain Free? Yes Assessment/Plan Assessment/Plan (1) Chronic venous hypertension w/ulcer and inflammation involv right side: CODE(S): I87.331 - Chronic venous hypertension (idiopathic) with ulcer and inflammation of right lower extremity (2) Varicose veins with ulcer and inflammation: CODE(S): I83.209 - Varicose veins of unspecified lower extremity with both ulcer of unspecified site and inflammation; L97.909 - Non-pressure chronic ulcer of unspecified part of unspecified lower leg with unspecified severity (3) Chronic venous insufficiency: CODE(S): I87.2 - Venous insufficiency (chronic) (peripheral) (4) Spontaneous hemorrhage: CODE(S): R58 - Hemorrhage, not elsewhere classified (5) Biventricular cardiac pacemaker in situ: CODE(S): Z95.0 - Presence of cardiac pacemaker (6) Sick sinus syndrome: CODE(S): I49.5 - Sick sinus syndrome (7) Paroxysmal atrial fibrillation: CODE(S): I48.0 - Paroxysmal atrial fibrillation (8) Supraventricular tachycardia: CODE(S): I47.1 - Supraventricular tachycardia (9) Cardiomyopathy in diseases classified elsewhere: CODE(S): I43 - Cardiomyopathy in diseases classified elsewhere (10) Secondary pulmonary arterial hypertension: CODE(S): I27.21 - Secondary pulmonary arterial hypertension (11) Essential (primary) hypertension: CODE(S): I10 - Essential (primary) hypertension (12) Diastolic dysfunction: CODE(S): I51.9 - Heart disease, unspecified (13) Hyperlipidemia: CODE(S): E78.5 - Hyperlipidemia, unspecified QUALIFIERS: Hyperlipidemia type: pure hypercholesterolemia Qualified Code(s): E78.00 - Pure hypercholesterolemia, unspecified; E78.0 - Pure hypercholesterolemia (14) Anticoagulant long-term use: CODE(S): Z79.01 - 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 She has a longstanding history of chronic venous disease. Her presentation is consistent with chronic venous insufficiency, venous hypertension with inflammation and ulceration, varicose veins with inflammation and ulceration, etc. We are to implement conservative treatment measures, which have been discussed with the patient thoroughly. Her weight appears to be optimal. She is to continue sleeping on a flat mattress at night. Leg elevation is to be implemented during daytime hours, is much as possible. The patient's legs are to be elevated to heart level, or higher. Prolonged idle sitting is to be minimized. Activity has been encouraged. Patient has obtained graduated compression stockings of 20 to 30 mmHg compression, and has been wearing daily. This has been recommended to continue. She has had no further bleeding from this site since her initial presentation. If further bleeding occurs, the patient is to elevate and apply compression. These measures have been discussed in detail. A venous duplex examination has been obtained, which reveals the right great saphenous vein and right small saphenous vein to be patent and competent. The left great saphenous vein is absent. The left small saphenous vein is competent. 2 incompetent accessory saphenous veins are noted in the left calf. Given that ultrasonography reveals no significant superficial venous pathology in the right lower extremity, there appears to be no indication for an endothermal ablation procedure. The patient is to be discharged, and will follow-up henceforth on an as-needed basis. She is to continue the conservative treatment measures which have been described to the patient in detail on several occasions. If she is to experience further spontaneous bleeding episodes, injection sclerotherapy may be considered as a modality of treatment. Total time: 25 minutes
== END 2023-04-19 15:07 | disposition home or self-care (01) ==
LOC: WC 08:55
PROVIDERS: PCP Family Medicine; Referring Provider Family Medicine; Visit Provider Surgery
DX: I87.331 Chronic venous hypertension (idiopathic) with ulcer and inflammation of right lower extremity (principal); L97.919 Non-pressure chronic ulcer of unspecified part of right lower leg with unspecified severity; I42.9 Cardiomyopathy, unspecified; I27.21 Secondary pulmonary arterial hypertension; E11.59 Type 2 diabetes mellitus with other circulatory complications; I48.0 Paroxysmal atrial fibrillation; I87.2 Venous insufficiency (chronic) (peripheral); Z79.01 Long term (current) use of anticoagulants; Z79.84 Long term (current) use of oral hypoglycemic drugs; Z90.710 Acquired absence of both cervix and uterus; Z95.0 Presence of cardiac pacemaker; E78.5 Hyperlipidemia, unspecified; I47.10 Supraventricular tachycardia, unspecified; R58 Hemorrhage, not elsewhere classified; I10 Essential (primary) hypertension; Z98.890 Other specified postprocedural states
CPT/HCPCS: 99213; G0463

== ENCOUNTER 2023-04-21 13:42 | Outpatient (RCR) | payer MEDICARE, OTHER, SELFPAY ==
[2023-03-13 05:01] VITALS: BMI 28.6
[2023-04-21 13:52] LABS: INR Fingerstick 2.2; Prothrombin Time Fingerstick 23.8 SEC (11.7-14.9)
== END 2023-05-12 18:00 | disposition home or self-care (01) ==
LOC: MTLAB 13:42
PROVIDERS: Family Provider Family Medicine; PCP Family Medicine; Referring Provider Internal Medicine Cardiovascular Disease; Visit Provider Internal Medicine Cardiovascular Disease
DX: I48.0 Paroxysmal atrial fibrillation (principal); Z79.01 Long term (current) use of anticoagulants
CPT/HCPCS: 36416; 85610

== ENCOUNTER 2023-06-08 13:42 | Outpatient (RCR) | payer MEDICARE, OTHER, SELFPAY ==
[2023-05-13 04:20] VITALS: BMI 28.6
[2023-06-08 13:55] LABS: INR Fingerstick 2.2; Prothrombin Time Fingerstick 24.4 SEC (11.7-14.9)
== END 2023-06-12 18:00 | disposition home or self-care (01) ==
LOC: MTLAB 13:42
PROVIDERS: Family Provider Family Medicine; PCP Family Medicine; Referring Provider Internal Medicine Cardiovascular Disease; Visit Provider Internal Medicine Cardiovascular Disease
DX: I48.0 Paroxysmal atrial fibrillation (principal); Z79.01 Long term (current) use of anticoagulants
CPT/HCPCS: 36416; 85610

== ENCOUNTER 2023-07-08 13:26 | Outpatient (RCR) | payer MEDICARE, OTHER, SELFPAY ==
[2023-06-12 23:32] VITALS: BMI 28.6
[2023-07-08 13:33] LABS: INR Fingerstick 2.4; Prothrombin Time Fingerstick 25.6 SEC (11.7-14.9)
== END 2023-07-08 18:00 | disposition home or self-care (01) ==
LOC: MTLAB 13:26
PROVIDERS: Family Provider Family Medicine; PCP Family Medicine; Referring Provider Internal Medicine Cardiovascular Disease; Visit Provider Internal Medicine Cardiovascular Disease
DX: I48.0 Paroxysmal atrial fibrillation (principal); Z79.01 Long term (current) use of anticoagulants
CPT/HCPCS: 36416; 85610

== ENCOUNTER 2023-08-08 14:52 | Outpatient (RCR) | payer MEDICARE, OTHER, SELFPAY ==
[2023-07-13 23:39] VITALS: BMI 28.6
[2023-08-09 14:22] LABS: INR Fingerstick 1.9; Prothrombin Time Fingerstick 21.4 SEC (11.7-14.9)
== END 2023-08-11 18:00 | disposition home or self-care (01) ==
LOC: MTLAB 14:52
PROVIDERS: Family Provider Family Medicine; PCP Family Medicine; Referring Provider Internal Medicine Cardiovascular Disease; Visit Provider Internal Medicine Cardiovascular Disease
DX: I48.0 Paroxysmal atrial fibrillation (principal); Z79.01 Long term (current) use of anticoagulants; I51.9 Heart disease, unspecified
CPT/HCPCS: 36416; 85610

== ENCOUNTER → 2023-08-17 | Outpatient (CLI) | payer MEDICARE, OTHER, SELFPAY ==
[2023-08-17 10:48] LABS: Bacteria 0 SEEN /hpf (None Seen); Mucous, Urine 0 SEEN /hpf (<or=2+); Red Blood Cells-Urine 0 SEEN /hpf (0-5); Squamous Epithelial Cells - UA 0 SEEN /hpf (5-10)
[2023-08-17 12:27] LABS: Absolute Lymphocyte Count 1.47 X10^3/uL (0.83-4.51); Absolute Neutrophil Count 2.8 X10^3/uL (2.0-7.7); Basophil# 0.07 X10^3/uL; Basophil% 1.3 % (0-1); Eosinophil# 0.25 X10^3/uL; Eosinophils% 4.8 % (0-5); Hematocrit 40.7 % (37-47); Lymphocyte # 1.47 X10^3/ul (0.83-4.51); Lymphocyte % 28.2 % (19-41); Mean Corp Hgb Conc 31.9 g/dL (32-36); Mean Corpuscular Hgb 30.5 pg (27.0-32.0); Mean Corpuscular Volume 95.5 fL (81-99); Mean Platelet Vol. 9.5 fl (6.2-12.0); Monocyte# 0.63 X10^3/uL; Monocyte% 12.1 % (0-10); NRBC Flagged by Analyzer 0 % (0-5); Neutrophil # 2.79 X10^3/uL (2.7-7.7); Neutrophil % 53.4 % (47-70); Platelet Count 256 K/mm3 (150-450); RBC Distribution Width CV 13.8 % (11.6-14.6); RBC Distribution Width SD 48.4 fl (35.1-43.9); Red Blood Count 4.26 M/mm3 (4.2-5.4); White Blood Count 5.2 K/mm3 (4.4-11.0)
[2023-08-17 12:44] LABS: Color, Urine Yellow (Yellow); Glucose, Dipstick 250 mg/dl (Normal); Ketone-Dipstick Negative (Negative); Leukocyte Esterase-Dipstick 25 /ul (Negative); Nitrite-Dipstick Negative (Negative); Occult Blood-Urine Negative /ul (Negative); Protein-Dipstick 15 mg/dl (Negative); Specific Gravity, Urine 1.005 (1.002-1.030); Urine Bilirubin Dipstick Negative (Negative); Urine Clarity Sl. Cloudy (Clear); Urine Urobilinogen Normal (Normal)
[2023-08-17 12:53] LABS: White Blood Cells 0-5 SEEN /hpf (0-5)
[2023-08-17 12:58] LABS: ALB/GLOB Ratio 1.2 RATIO (0.9-2.4); AST(SGOT) 20 U/L (15-37); Alanine Aminotransfer ALT/SGPT 19 U/L (13-56); Albumin, Serum 3.9 g/dL (3.2-5.0); Alkaline Phosphatase 72 U/L (45-117); Anion Gap 3 (5-15); BUN 15 mg/dL (7-18); BUN/Creat Ratio 18.8 RATIO (10-20); Calcium,Total 9.4 mg/dL (8.5-10.1); Chloride 102 mmol/L (98-107); Cholesterol 129 mg/dL (200); EST Glomerular Filtration Rate 75 mL/min (>60); Est Glom Filt Rate - Afr Amer 91 mL/min (>60); Globulin 3.3 g/dL (2.2-4.2); Glucose 106 mg/dL (74-106); High Density Lipoprotein 59 mg/dL; Magnesium 1.5 mg/dL (1.6-2.6); Phosphorus 3.2 mg/dL (2.5-4.9); Potassium 4.2 mmol/L (3.5-5.1); Protein, Total 7.2 g/dL (6.4-8.2); Sodium Level 136 mmol/L (136-145); Triglycerides 155 mg/dL; Uric Acid 3.5 mg/dL (2.6-6.0); Very Low Density Lipoprotein 31 mg/dL (5-40)
[2023-08-17 13:01] LABS: Vitamin D,25 Hydroxy 52.3 ng/mL
[2023-08-17 13:34] LABS: Hemoglobin A1c 6.5 % (3.8-5.6)
[2023-08-17 13:40] LABS: Microalbumin:Creatinine Ratio 75.6 mg/g CRE (<30 mg/g CRE); Protein, Urine (Random) 11.6 mg/dL (<11.9); Protein:Creat Ratio 674 mg/g CRE (0-200)
[2023-08-17 14:22] LABS: PTHIN 53.3 pg/mL (18.4-80.1)
== END | disposition home or self-care (01) ==
LOC: MFPLAB 10:46
PROVIDERS: PCP Family Medicine; Visit Provider Family Medicine
DX: E11.22 Type 2 diabetes mellitus with diabetic chronic kidney disease (principal); N18.30 Chronic kidney disease, stage 3 unspecified; E83.42 Hypomagnesemia
CPT/HCPCS: 36415; 80053; 80061; 81001; 82043; 82306; 82570; 83036; 83735; 83970; 84100; 84156; 84550; 85025

== ENCOUNTER 2023-08-23 16:28 | Outpatient (RCR) | payer MEDICARE, OTHER, SELFPAY ==
[2023-08-12 02:18] VITALS: BMI 28.6
== END 2023-09-11 02:06 | disposition home or self-care (01) ==
LOC: MTLAB 16:28
PROVIDERS: Family Provider Family Medicine; PCP Family Medicine; Referring Provider Internal Medicine Cardiovascular Disease; Visit Provider Internal Medicine Cardiovascular Disease
DX: I48.0 Paroxysmal atrial fibrillation (principal); Z79.01 Long term (current) use of anticoagulants; I51.9 Heart disease, unspecified
CPT/HCPCS: 36416; 85610

== ENCOUNTER 2023-09-14 14:56 | Outpatient (RCR) | payer MEDICARE, OTHER, SELFPAY ==
[2023-09-11 02:06] VITALS: BMI 28.6
[2023-09-14 18:55] LABS: INR Fingerstick 2.5; Prothrombin Time Fingerstick 27.5 SEC (11.7-14.9)
== END 2023-10-11 22:03 | disposition home or self-care (01) ==
LOC: MTLAB 14:56
PROVIDERS: Family Provider Family Medicine; PCP Family Medicine; Referring Provider Physician Assistant Medical; Visit Provider Physician Assistant Medical
DX: I48.0 Paroxysmal atrial fibrillation (principal); Z79.01 Long term (current) use of anticoagulants; I51.9 Heart disease, unspecified
CPT/HCPCS: 36416; 85610

== ENCOUNTER 2023-10-14 15:00 | Outpatient (RCR) | payer MEDICARE, OTHER, SELFPAY ==
[2023-10-11 22:03] VITALS: BMI 28.6
[2023-10-14 15:10] LABS: INR Fingerstick 2.3; Prothrombin Time Fingerstick 24.8 SEC (11.7-14.9)
== END 2023-11-11 18:00 | disposition home or self-care (01) ==
LOC: MTLAB 15:00
PROVIDERS: Family Provider Family Medicine; PCP Family Medicine; Referring Provider Physician Assistant Medical; Visit Provider Physician Assistant Medical
DX: I48.0 Paroxysmal atrial fibrillation (principal); Z79.01 Long term (current) use of anticoagulants; I51.9 Heart disease, unspecified
CPT/HCPCS: 36416; 85610

== ENCOUNTER 2023-11-14 14:12 | Outpatient (RCR) | payer MEDICARE, OTHER, SELFPAY ==
[2023-11-14 08:33] VITALS: BMI 28.6
[2023-11-14 14:22] LABS: INR Fingerstick 2.3; Prothrombin Time Fingerstick 23.8 SEC (11.7-14.9)
== END 2023-11-14 18:00 | disposition home or self-care (01) ==
LOC: MTLAB 14:12
PROVIDERS: Family Provider Family Medicine; PCP Family Medicine; Referring Provider Physician Assistant Medical; Visit Provider Physician Assistant Medical
DX: I48.0 Paroxysmal atrial fibrillation (principal); Z79.01 Long term (current) use of anticoagulants; I51.9 Heart disease, unspecified
CPT/HCPCS: 36416; 85610

== ENCOUNTER 2023-12-16 08:27 | Outpatient (RCR) | payer MEDICARE, OTHER, SELFPAY ==
[2023-12-12 04:26] VITALS: BMI 28.6
[2023-12-16 10:09] LABS: Absolute Lymphocyte Count 1.24 X10^3/uL (0.83-4.51); Absolute Neutrophil Count 2.8 X10^3/uL (2.0-7.7); Basophil# 0.06 X10^3/uL; Basophil% 1.2 % (0-1); Eosinophil# 0.18 X10^3/uL; Eosinophils% 3.7 % (0-5); Hematocrit 41.7 % (37-47); Hemoglobin 13.4 g/dL (12.0-15.0); Lymphocyte # 1.24 X10^3/ul (0.83-4.51); Lymphocyte % 25.3 % (19-41); Mean Corp Hgb Conc 32.1 g/dL (32-36); Mean Corpuscular Hgb 31.4 pg (27.0-32.0); Mean Corpuscular Volume 97.7 fL (81-99); Mean Platelet Vol. 9.7 fl (6.2-12.0); Monocyte# 0.63 X10^3/uL; Monocyte% 12.9 % (0-10); NRBC Flagged by Analyzer 0 % (0-5); Neutrophil # 2.78 X10^3/uL (2.7-7.7); Neutrophil % 56.7 % (47-70); Platelet Count 249 K/mm3 (150-450); RBC Distribution Width CV 13.8 % (11.6-14.6); RBC Distribution Width SD 49.4 fl (35.1-43.9); Red Blood Count 4.27 M/mm3 (4.2-5.4); White Blood Count 4.9 K/mm3 (4.4-11.0)
[2023-12-16 10:16] LABS: International Normalized Ratio 2.7; Prothrombin Time (Protime)PT. 28.7 SECONDS (11.7-14.9)
[2023-12-16 11:05] LABS: ALB/GLOB Ratio 1.2 RATIO (0.9-2.4); AST(SGOT) 24 U/L (15-37); Alanine Aminotransfer ALT/SGPT 21 U/L (13-56); Albumin, Serum 3.8 g/dL (3.2-5.0); Alkaline Phosphatase 72 U/L (45-117); Anion Gap 9 (5-15); BUN 20 mg/dL (7-18); BUN/Creat Ratio 21.2 RATIO (10-20); Calcium,Total 9.4 mg/dL (8.5-10.1); Chloride 97 mmol/L (98-107); Cholesterol 124 mg/dL (200); Creatinine, Serum 0.94 mg/dL (0.55-1.02); EST Glomerular Filtration Rate 61 mL/min (>60); Est Glom Filt Rate - Afr Amer 74 mL/min (>60); Globulin 3.1 g/dL (2.2-4.2); Glucose 115 mg/dL (74-106); High Density Lipoprotein 56 mg/dL; Magnesium 1.9 mg/dL (1.6-2.6); Potassium 3.9 mmol/L (3.5-5.1); Protein, Total 6.9 g/dL (6.4-8.2); Sodium Level 134 mmol/L (136-145); Triglycerides 155 mg/dL; Very Low Density Lipoprotein 31 mg/dL (5-40)
[2023-12-16 14:06] LABS: Hemoglobin A1c 6.3 % (3.8-5.6)
== END 2024-01-11 18:00 | disposition home or self-care (01) ==
LOC: MTLAB 08:27
PROVIDERS: Family Provider Family Medicine; PCP Family Medicine; Referring Provider Physician Assistant Medical; Visit Provider Physician Assistant Medical
DX: Z79.01 Long term (current) use of anticoagulants; E83.42 Hypomagnesemia; N18.30 Chronic kidney disease, stage 3 unspecified; E11.22 Type 2 diabetes mellitus with diabetic chronic kidney disease
CPT/HCPCS: 36415; 80053; 80061; 83036; 83735; 85025; 85610

== ENCOUNTER → 2024-01-17 | Outpatient (CLI) | payer MEDICARE, OTHER, SELFPAY ==
[2024-01-17 17:56] LABS: Prothrombin Time (Protime)PT. 31.1 SECONDS (11.7-14.9)
== END | disposition home or self-care (01) ==
PROVIDERS: PCP Family Medicine; Visit Provider Internal Medicine Cardiovascular Disease
DX: I48.0 Paroxysmal atrial fibrillation (principal); Z79.01 Long term (current) use of anticoagulants
CPT/HCPCS: 36415; 85610

== ENCOUNTER 2024-02-08 11:42 | Emergency (ER) | payer MEDICARE, OTHER, SELFPAY ==
[2024-02-08 11:43] VITALS: BP 147/118; PULSE 87; RESP 18; TEMP 36.3; O2SAT 98; BMI 23.2
--- NOTE | 2024-02-08 12:24 | CT_ITS ---
STUDY: CT CERVICAL SPINE WITHOUT CONTRAST REASON FOR EXAM: Female, 73 years old. Neck pain after trauma RADIATION DOSAGE (If Supplied By Facility): CTDIvol = ( 12.44 ) mGy, DLP = ( 222.83 ) mGycm TECHNIQUE: High resolution transaxial imaging was performed without contrast material. Sagittal and coronal images were reconstructed. Individualized dose optimization techniques were used for this CT. COMPARISON: None FINDINGS: Normal craniovertebral junction. There are degenerative changes of the anterior atlantoaxial articulation. Normal odontoid process. There is straightening of the normal cervical lordosis. Bones are diffusely demineralized. C2-3: Normal endplates. Disc space narrowing.. Normal central canal and intervertebral neuroforamina. C3-4: Normal endplates. Disc space narrowing. Broad-based central disc bulge without central canal narrowing, there is bilateral foraminal narrowing due to facet joint hypertrophy more pronounced on the left side than the right C4-5: Normal endplates. Disc space narrowing. Broad-based central disc bulge without central canal narrowing, there is bilateral foraminal narrowing due to facet joint hypertrophy more pronounced on the left side than the right C5-6: Sclerotic endplate changes with small posterior uncovertebral spurs and central disc bulge. No central canal narrowing, mild bilateral foraminal narrowing due to facet joint hypertrophy. C6-7: Normal endplates. Disc space narrowing.. Normal central canal and intervertebral neuroforamina. C7-T1: Normal endplates. Disc space narrowing.. Normal central canal and intervertebral neuroforamina. Normal visualized soft tissue structures. CT/Spine Cervical without Contras IMPRESSION: Multilevel degenerative changes, as described above. No fracture or suspicious osseous lesion Electronically Signed: Desmond Connors MD at 13:21 EDT ,
--- NOTE | 2024-02-08 12:24 | CT_ITS ---
STUDY: CT BRAIN WITHOUT CONTRAST REASON FOR EXAM: Female, 73 years old. Headache after trauma RADIATION DOSAGE (If Supplied By Facility): CTDIvol = ( 44.99 ) mGy, DLP = ( 762.36 ) mGycm TECHNIQUE: Transaxial CT imaging of the brain was performed without administration of intravenous contrast material. Individualized dose optimization techniques were used for this CT. COMPARISON: 11/13/2021 FINDINGS: There is a left frontal scalp hematoma without skull fracture. Old left nasal fracture. There is mild cerebral atrophy with widening of the extra-axial spaces and ventricular dilatation. There are areas of decreased attenuation within the white matter tracts of the supratentorial brain, consistent with microvascular disease changes. Normal basal ganglia and thalami. Normal brainstem. Normal cerebellum. There is a likely calcified meningioma along the inner table of the skull in the left frontal lobe. No associated edema or hemorrhage or mass effect. There is no intracranial hemorrhage. There are no findings of an acute ischemic infarction. Normal visualized paranasal sinuses. CT/Brain/Head without Contrast IMPRESSION: No acute hemorrhage midline shift or mass effect Age consistent senescent changes without acute hemorrhage Left frontal scalp hematoma without skull fracture Electronically Signed: Desmond Connors MD at 13:28 EDT ,
--- NOTE | 2024-02-08 12:25 | EX.ED.GENINJ ---
HPI History of Present Illness Chief Complaint: Fall Informant: patient Narrative Narrative: Very pleasant 73-year-old female presenting to the emergency room with a fall. Patient has a history of paroxysmal A-fib/sick sinus syndrome and is on long-term Coumadin. Patient states she had a mechanical fall this morning in which she struck her face on the ground. She did not break her glasses but she notes that her glasses caused abrasion and swelling to her nose. She also notes a forehead hematoma. She notes generalized neck soreness and slight headache. She denies any extremity or torso symptoms. No loss of consciousness [facility] Medical History Spontaneous hemorrhage Chronic venous hypertension w/ulcer and inflammation involv right side Varicose veins with ulcer and inflammation Chronic venous insufficiency Diabetes mellitus Dysphasia Cardiomyopathy in diseases classified elsewhere Type 2 diabetes mellitus Sick sinus syndrome Paroxysmal atrial fibrillation Essential (primary) hypertension Secondary pulmonary arterial hypertension Diastolic dysfunction Hyperlipidemia Atrial flutter Supraventricular tachycardia Home Medications ?Medication ?Instructions ?Recorded ?Last Taken ?Type acetaminophen 500 mg tablet 500 mg PO .Take As Directed 07/07/17 Unknown History aspirin 81 mg tablet,delayed 81 mg PO QDAY 07/07/17 Unknown History release (Adult Low Dose Aspirin) metformin 500 mg tablet 1,000 mg PO BID 07/07/17 Unknown History (Glucophage) glucosamine 750 va-ohwjyjidoak-sed 1 tab PO QODAY 07/28/17 Unknown History no1 644 mg-C 30 mg-nia 1 mg tablet (Osteo Bi-Flex Triple Strength) magnesium oxide 400 mg PO QDAY 07/28/17 Unknown History multivitamin (Daily Multi-Vitamin 1 tab PO QAM 07/28/17 Unknown History tablet) omega-3 fatty acids 1,000 mg 1,000 mg PO DAILY 05/21/19 06/16/19 History capsule (Fish Oil Concentrate) hydrochlorothiazide 25 mg tablet 25 mg PO QDAY #90 tabs 12/24/19 Unknown Rx dapagliflozin propanediol 5 mg 5 mg PO DAILY 02/18/22 Unknown History tablet (Farxiga) ferrous sulfate 325 mg (65 mg 325 mg PO BID 02/18/22 Unknown History iron) tablet,delayed release omeprazole 40 mg capsule,delayed 40 mg PO DAILY 02/18/22 Unknown History release warfarin 3 mg tablet 3 mg PO QDAY #90 tabs 05/31/23 Unknown Rx sotalol 160 mg tablet See Rx Instructions .Route 09/15/23 Unknown Rx .COMPLEX #180 tabs losartan 100 mg tablet 100 mg PO QDAY #90 tabs 09/27/23 Unknown Rx simvastatin 20 mg tablet 20 mg PO QHS #90 tabs 10/17/23 Unknown Rx amlodipine 2.5 mg tablet 2.5 mg PO DAILY #90 tabs 11/28/23 Unknown Rx Allergy/AdvReac Type Severity Reaction Status Date / Time esomeprazole (From Nexium) AdvReac Severe Hives Verified 02/08/24 11:44 meperidine (From Demerol) AdvReac Severe Unknown Verified 02/08/24 11:44 povidone-iodine (From AdvReac Severe Unknown Verified 02/08/24 11:44 Betadine) soap (From Betadine) AdvReac Severe Unknown Verified 02/08/24 11:44 propoxyphene (From AdvReac Intermediate Unknown Verified 06/23/23 09:02 Darvocet-N) hydrocodone (From Vicodin) AdvReac Mild Nausea, Verified 02/08/24 11:44 headache oxycodone (From Percocet) AdvReac Mild Nausea Verified 02/08/24 11:44 Family History Father Hypertension Renal failure Mother Diabetes Hypertension HLD (hyperlipidemia) Lupus MVP (mitral valve prolapse) Brother Cancer Spine Cancer Sister Hypertension GERD (gastroesophageal reflux disease) Surgical History History of cardiac radiofrequency ablation History of hysterectomy History of thumb surgery History of hysterectomy History of foot surgery Biventricular cardiac pacemaker in situ (02/01/19) History of thumb surgery History of radiofrequency ablation procedure for cardiac arrhythmia (2009) Social History Smoking Status: Never smoker alcohol intake: current Alcohol type: hard liquor substance use type: does not use seatbelt use: always ROS ROS ED Constitutional Constitutional ED: Denies chills, fever(s) or weight loss Eyes Eyes: Denies change in vision or diplopia ENT ENT ED: Denies ear pain, rhinorrhea or sore throat Cardiovascular Cardiovascular: Denies chest pain, orthopnea, palpitations or racing heartbeat Respiratory/Chest Respiratory/Chest: Denies cough, dyspnea or orthopnea Gastrointestinal Gastrointestinal: Denies abdominal pain, diarrhea, nausea or vomiting Genitourinary Genitourinary ED: Denies dysuria, hematuria or urinary frequency Musculoskeletal Musculoskeletal: Reports neck pain; Denies arthralgias, back pain or myalgias Integumentary Reports Abrasions; Denies abscess or rash Neurologic Neurologic: Reports headache(s); Denies weakness Psychiatric Psychiatric: Denies anxiety, depression, suicidal ideation or suicidal thoughts Endocrine Endocrinology: Denies polydipsia, polyphagia or polyuria Allergic/Immunologic Allergic/Immunologic ED: Denies mouth swelling, tongue swelling or urticaria EXAM Physical Exam Const Vital Signs: 02/08/24 11:43 Temperature 97.4 F L Temperature Source Temporal Pulse Rate 87 Respiratory Rate 18 Blood Pressure 147/118 H Blood Pressure Mean 127 Pulse Ox 98 Oxygen Delivery Method Room Air Positive well nourished and well developed General Appearance ED: well developed and NAD HEENT Reports normocephalic and moist mucous membranes HEENT Narrative: There is a forehead hematoma just to the left of the midline. There is nasal abrasion and bridge of the nose hematoma. There is no subconjunctival hemorrhage or hyphema noted. No septal hematoma noted. Midface is stable. No malocclusion dental trauma or jaw pain. No hemotympanums or Jennings sign/raccoon eyes. Eyes PERRL and EOMs intact bilaterally Neck full ROM, no lymphadenopathy, supple and no JVD Neck Narrative: General tenderness to palpation over the neck musculature Chest Wall inspection of chest normal and palpation of chest normal Resp normal respiratory effort and clear to auscultation bilaterally Cardio regular rate, regular rhythm and no murmurs GI normal to inspection, nondistended, normoactive bowel sounds and non-tender Palpation: soft Back/Spine no CVA tenderness and normal ROM Extremity normal to inspection General Extremety ED: Negative for edema General Extremity: Negative for edema Neuro oriented x3 and CN's II-XII intact bilaterally Rulo Coma Scale: document GCS findings Spontaneous Obeys Commands Oriented 15 Sensorium / Orientation: alert Motor Exam: strength 5/5 throughout Psych mental status grossly normal Mood & Affect: Negative for depressed or tearful Skin no rashes or lesions noted and no wounds MDM MDM MDM Narrative Medical decision making narrative: Differential diagnosis includes but not limited to intracranial hemorrhage/hematoma skull fracture cervical spine fracture cervical myofascial strain cutaneous hematoma facial fractures ocular trauma CT of the cervical spine demonstrated degenerative changes but no acute fracture. CT of the brain demonstrated no obvious fracture or hematoma or hemorrhage. Her INR is slightly elevated 3.4. I am and asked that she hold her Coumadin dose tonight and tomorrow night then resume testing. Patient to provide ice to the forehead and face. Tylenol for pain return if any concerns or worsening. History & Record Review Discussion w/independent historian: Patient Lab Data Attestation: I reviewed the patient's lab results. Labs: Laboratory Results - last 24 hr 02/08/24 12:33 PT 34.0 H INR 3.4 Radiography Diagnostic Testing: Clinical Impression(s) from Imaging Studies Cervical Spine CT 02/08/24 12:24 IMPRESSION: Multilevel degenerative changes, as described above. No fracture or suspicious osseous lesion Electronically Signed: Desmond Connors MD at 13:21 EDT Reading Location ID and State: [address] [place] [address] , Service support , Discharge Plan Triage Chief Complaint: Fall ED Provider: Dae Bobo Dx/Rx/DC Orders Prescriptions: No Action acetaminophen 500 mg tablet 500 mg PO .Take As Directed aspirin [Adult Low Dose Aspirin] 81 mg tablet,delayed release (DR/EC) 81 mg PO QDAY metformin [Glucophage] 500 mg tablet 1,000 mg PO BID Patient Comments: 500mg, 2 tablets PO BID Rx Instructions: 500mg, 2 tablets PO BID magnesium oxide 400 mg capsule 400 mg PO QDAY multivitamin [Daily Multi-Vitamin] tablet 1 tab PO QAM [id number] [Osteo Bi-Flex Triple Strength] 750 mg-644 mg- 30 mg-1 mg tablet 1 tab PO QODAY omega-3 fatty acids [Fish Oil Concentrate] 1,000 mg capsule 1,000 mg PO DAILY hydrochlorothiazide 25 mg tablet 25 mg PO QDAY Qty: 90 3RF omeprazole 40 mg capsule,delayed release(DR/EC) 40 mg PO DAILY Patient Comments: TAKE 1 CAPSULE BY MOUTH ONCE DAILY ferrous sulfate 325 mg (65 mg iron) tablet,delayed release (DR/EC) 325 mg PO BID Patient Comments: TAKE 1 TABLET BY MOUTH TWICE A DAY WITH FOOD Farxiga 5 mg tablet 5 mg PO DAILY warfarin 3 mg tablet 3 mg PO QDAY Qty: 90 3RF Protocol: Dose Management Condition: Tuesday Dose/Route: 3 mg Instruction: 1 x 3 mg tablet Condition: Tuesday Dose/Route: 3 mg Instruction: 1 x 3 mg tablet Condition: Tuesday Dose/Route: 3 mg Instruction: 1 x 3 mg tablet Condition: Tuesday Dose/Route: 3 mg Instruction: 1 x 3 mg tablet Condition: Dose/Route: 3 mg Instruction: 1 x 3 mg tablet Condition: Tuesday Dose/Route: 3 mg Instruction: 1 x 3 mg tablet Condition: Tuesday Dose/Route: 1.5 mg Instruction: 0.5 x 3 mg tablets Protocol Text: Adjustment Start Date: Tuesday01/18/24 INR Value: 3.0 INR Date: 01/17/24 Recheck Date: 02/17/24 sotalol 160 mg tablet See Rx Instructions .ROUTE .COMPLEX Qty: 180 3RF Dose Instruction: TAKE 1 TABLET BY MOUTH TWICE A DAY Rx Instructions: TAKE 1 TABLET BY MOUTH TWICE A DAY losartan 100 mg tablet 100 mg PO QDAY Qty: 90 3RF simvastatin 20 mg tablet 20 mg PO QHS Qty: 90 3RF amlodipine 2.5 mg tablet 2.5 mg PO DAILY Qty: 90 3RF Primary Care Provider: Jose Patrick Referrals: Jose Patrick MD [Primary Care Provider] - Print Language: Syriac
[2024-02-08] MEDS: Acetaminophen 500 MG Tablet 1000 MG PO (12:31)
[2024-02-08 13:00] LABS: International Normalized Ratio 3.4
[2024-02-08 13:42] VITALS: BP 129/107; PULSE 72; RESP 16; O2SAT 100
== END 2024-02-08 13:44 | disposition home or self-care (01) ==
PROVIDERS: Emergency Provider Emergency Medicine; PCP Family Medicine; Visit Provider Emergency Medicine
DX: S00.83XA Contusion of other part of head, initial encounter (principal); I48.0 Paroxysmal atrial fibrillation; E11.9 Type 2 diabetes mellitus without complications; I10 Essential (primary) hypertension; E78.5 Hyperlipidemia, unspecified; Z79.01 Long term (current) use of anticoagulants; S00.31XA Abrasion of nose, initial encounter; W19.XXXA Unspecified fall, initial encounter
CPT/HCPCS: 70450; 72125; 85610; 99282

== ENCOUNTER → 2024-03-06 | Outpatient (CLI) | payer MEDICARE, OTHER, SELFPAY ==
--- NOTE | 2024-03-06 16:52 | RAD_ITS ---
INDICATION: cough EXAMINATION/TECHNIQUE: X-RAY - XR Chest 2 Views COMPARISON: January 26, 2019 FINDINGS: LINES/DEVICES: Stable left-sided pacemaker. LUNGS: No consolidation, edema or effusion. No pneumothorax. MEDIASTINUM AND CARDIOVASCULAR STRUCTURES: Cardiac silhouette not enlarged. Central airways and mediastinal contour are unremarkable. BONES AND SOFT TISSUES: Unremarkable. RAD/Chest PA and Lateral IMPRESSION: No radiographic evidence of acute cardiopulmonary disease. Electronically Signed: Adam Patino DO at 18:01 EDT ,
== END | disposition home or self-care (01) ==
LOC: MTRAD 16:52
PROVIDERS: PCP Family Medicine; Referring Provider Physician Assistant; Visit Provider Physician Assistant
DX: R05.9 Cough, unspecified (principal)
CPT/HCPCS: 71046

== ENCOUNTER 2024-03-12 14:20 | Outpatient (RCR) | payer MEDICARE, OTHER, SELFPAY ==
[2024-01-11 23:23] VITALS: BMI 28.6
[2024-02-14 15:20] LABS: INR Fingerstick 1.7; Prothrombin Time Fingerstick 17.8 SEC (11.7-14.9)
[2024-03-01 14:16] LABS: INR Fingerstick 4.1; Prothrombin Time Fingerstick 40.1 SEC (11.7-14.9)
[2024-03-01 17:56] LABS: International Normalized Ratio 4.1
[2024-03-01 19:15] LABS: Prothrombin Time (Protime)PT. 39.4 SECONDS (11.7-14.9)
[2024-03-12 14:30] LABS: INR Fingerstick 4.8; Prothrombin Time Fingerstick 45.8 SEC (11.7-14.9)
[2024-03-12 17:56] LABS: Prothrombin Time (Protime)PT. 40.4 SECONDS (11.7-14.9)
[2024-03-12 20:21] LABS: International Normalized Ratio 4.2
== END 2024-03-12 18:00 | disposition home or self-care (01) ==
LOC: MTLAB 14:20
PROVIDERS: Family Provider Family Medicine; PCP Family Medicine; Referring Provider Physician Assistant Medical; Visit Provider Physician Assistant Medical
DX: I48.0 Paroxysmal atrial fibrillation (principal); Z79.01 Long term (current) use of anticoagulants
CPT/HCPCS: 36416; 85610

== ENCOUNTER 2024-04-02 13:14 | Outpatient (RCR) | payer MEDICARE, OTHER, SELFPAY ==
[2024-03-13 04:51] VITALS: BMI 28.6
[2024-03-17 07:03] LABS: Prothrombin Time Fingerstick 20.7 SEC (11.7-14.9)
[2024-03-26 07:46] LABS: INR Fingerstick 1.5; Prothrombin Time Fingerstick 15.9 SEC (11.7-14.9)
[2024-04-02 13:23] LABS: INR Fingerstick 2.3; Prothrombin Time Fingerstick 23.4 SEC (11.7-14.9)
== END 2024-04-02 18:00 | disposition home or self-care (01) ==
LOC: MTLAB 13:14
PROVIDERS: Family Provider Family Medicine; PCP Family Medicine; Referring Provider Physician Assistant Medical; Visit Provider Physician Assistant Medical
DX: I48.0 Paroxysmal atrial fibrillation (principal); Z79.01 Long term (current) use of anticoagulants
CPT/HCPCS: 36416; 85610

== ENCOUNTER 2024-04-30 13:12 | Outpatient (RCR) | payer MEDICARE, OTHER, SELFPAY ==
[2024-04-12 21:10] VITALS: BMI 28.6
[2024-04-17 13:39] LABS: Prothrombin Time Fingerstick 30.2 SEC (11.7-14.9)
[2024-04-30 13:20] LABS: INR Fingerstick 2.4; Prothrombin Time Fingerstick 26.1 SEC (11.7-14.9)
== END 2024-05-12 18:00 | disposition home or self-care (01) ==
LOC: MTLAB 13:12
PROVIDERS: Family Provider Family Medicine; PCP Family Medicine; Referring Provider Physician Assistant Medical; Visit Provider Physician Assistant Medical
DX: I48.0 Paroxysmal atrial fibrillation (principal); Z79.01 Long term (current) use of anticoagulants
CPT/HCPCS: 36416; 85610

== ENCOUNTER 2024-05-31 16:22 | Outpatient (RCR) | payer MEDICARE, OTHER, SELFPAY ==
[2024-05-13 02:11] VITALS: BMI 28.6
[2024-06-04 07:27] LABS: INR Fingerstick 2.4; Prothrombin Time Fingerstick 25.8 SEC (11.7-14.9)
== END 2024-05-31 18:00 | disposition home or self-care (01) ==
LOC: MTLAB 16:22
PROVIDERS: Family Provider Family Medicine; PCP Family Medicine; Referring Provider Physician Assistant Medical; Visit Provider Physician Assistant Medical
DX: I48.0 Paroxysmal atrial fibrillation (principal); Z79.01 Long term (current) use of anticoagulants
CPT/HCPCS: 36416; 85610

== ENCOUNTER 2024-07-04 13:56 | Outpatient (RCR) | payer MEDICARE, OTHER, SELFPAY ==
[2024-06-13 05:11] VITALS: BMI 28.6
[2024-07-04 14:54] LABS: INR Fingerstick 2.1; Prothrombin Time Fingerstick 22.9 SEC (11.7-14.9)
== END 2024-07-04 18:00 | disposition home or self-care (01) ==
LOC: MTLAB 13:56
PROVIDERS: Family Provider Family Medicine; PCP Family Medicine; Referring Provider Physician Assistant Medical; Visit Provider Physician Assistant Medical
DX: I48.0 Paroxysmal atrial fibrillation (principal); Z79.01 Long term (current) use of anticoagulants

== ENCOUNTER → 2024-07-23 | Outpatient (CLI) | payer MEDICARE, OTHER, SELFPAY ==
[2024-07-23 09:35] LABS: Bacteria 0 SEEN /hpf (None Seen); Mucous, Urine 0 SEEN /hpf (<or=2+)
[2024-07-23 10:36] LABS: Absolute Lymphocyte Count 1.35 X10^3/uL (0.83-4.51); Absolute Neutrophil Count 2.8 X10^3/uL (2.0-7.7); Basophil# 0.07 X10^3/uL; Basophil% 1.4 % (0-1); Eosinophils% 5.8 % (0-5); Hematocrit 40.9 % (37-47); Hemoglobin 12.6 g/dL (12.0-15.0); Lymphocyte # 1.35 X10^3/ul (0.83-4.51); Lymphocyte % 26.2 % (19-41); Mean Corp Hgb Conc 30.8 g/dL (32-36); Mean Corpuscular Hgb 30.5 pg (27.0-32.0); Mean Platelet Vol. 9.6 fl (6.2-12.0); Monocyte# 0.64 X10^3/uL; Monocyte% 12.4 % (0-10); NRBC Flagged by Analyzer 0 % (0-5); Neutrophil # 2.79 X10^3/uL (2.7-7.7); Platelet Count 258 K/mm3 (150-450); RBC Distribution Width CV 13.9 % (11.6-14.6); RBC Distribution Width SD 50.7 fl (35.1-43.9); Red Blood Count 4.13 M/mm3 (4.2-5.4); White Blood Count 5.2 K/mm3 (4.4-11.0)
[2024-07-23 10:38] LABS: Color, Urine Straw (Yellow); Glucose, Dipstick 250 mg/dl (Normal); Ketone-Dipstick Negative (Negative); Leukocyte Esterase-Dipstick Negative /ul (Negative); Nitrite-Dipstick Negative (Negative); Occult Blood-Urine Negative /ul (Negative); Protein-Dipstick Negative (Negative); Specific Gravity, Urine 1.005 (1.002-1.030); Urine Bilirubin Dipstick Negative (Negative); Urine Clarity Clear (Clear); Urine Urobilinogen Normal (Normal)
[2024-07-23 10:46] LABS: PTHIN 69.6 pg/mL (18.4-80.1)
[2024-07-23 10:54] LABS: Red Blood Cells-Urine 0 SEEN /hpf (0-5); Squamous Epithelial Cells - UA 0-5 SEEN /hpf (5-10); White Blood Cells 0-5 SEEN /hpf (0-5)
[2024-07-23 11:26] LABS: ALB/GLOB Ratio 1.1 RATIO (0.9-2.4); AST(SGOT) 20 U/L (15-37); Alanine Aminotransfer ALT/SGPT 23 U/L (13-56); Albumin, Serum 3.6 g/dL (3.2-5.0); Alkaline Phosphatase 72 U/L (45-117); Anion Gap 9 (5-15); BUN 16 mg/dL (7-18); BUN/Creat Ratio 22.5 RATIO (10-20); Calcium,Total 9.1 mg/dL (8.5-10.1); Chloride 103 mmol/L (98-107); Cholesterol 131 mg/dL (200); Creatinine, Serum 0.71 mg/dL (0.55-1.02); EST Glomerular Filtration Rate 85 mL/min (>60); Est Glom Filt Rate - Afr Amer 103 mL/min (>60); Globulin 3.4 g/dL (2.2-4.2); Glucose 110 mg/dL (74-106); High Density Lipoprotein 65 mg/dL; Magnesium 1.7 mg/dL (1.6-2.6); Phosphorus 3.1 mg/dL (2.5-4.9); Potassium 3.9 mmol/L (3.5-5.1); Sodium Level 139 mmol/L (136-145); Triglycerides 94 mg/dL; Very Low Density Lipoprotein 19 mg/dL (5-40)
[2024-07-23 11:48] LABS: Microalbumin,Random Urine 26.1 mg/L (NO RANGE EST.); Microalbumin:Creatinine Ratio 103.6 mg/g CRE (<30 mg/g CRE); Protein, Urine (Random) 18.7 mg/dL (<11.9); Protein:Creat Ratio 742 mg/g CRE (0-200)
[2024-07-23 12:06] LABS: Hemoglobin A1c 6.6 % (3.8-5.6)
== END | disposition home or self-care (01) ==
LOC: MFPLAB 08:05
PROVIDERS: PCP Family Medicine; Referring Provider Family Medicine; Visit Provider Family Medicine
DX: E11.22 Type 2 diabetes mellitus with diabetic chronic kidney disease (principal); I48.91 Unspecified atrial fibrillation; N18.30 Chronic kidney disease, stage 3 unspecified
CPT/HCPCS: 36415; 80053; 80061; 81001; 82043; 82306; 82570; 83036; 83735; 83970; 84100; 84156; 84443; 85025

== ENCOUNTER → 2024-08-07 | Outpatient (CLI) | payer MEDICARE, OTHER, SELFPAY ==
--- NOTE | 2024-08-07 14:45 | CT_ITS ---
PROCEDURE: SPINE LUMBAR WITHOUT CONTRAST REASON FOR EXAM: Chronic low back pain. . TECHNIQUE: Lumbar spine CT with contrast. CONTRAST: COMPARISON: None. FINDINGS: Vertebrae: Normal lumbar vertebral body heights. No evidence of fracture. No spondylolysis. Alignment: No spondylolisthesis. Loss of the normal lumbar lordosis. L1-2: Mild degree of disc space narrowing. Facet joint osteoarthritis. Spondylosis. L2-3: The disc space is relatively well-maintained. Mild degree of facet joint osteoarthritis. Anterior spondylosis. L3-4: Marked degree of disc space narrowing with subchondral sclerosis. Facet joint osteoarthropathy and hypertrophy. Mild degree of bilateral neural foraminal stenosis. L4-5: Marked degree of disc space narrowing and disc degeneration. Facet joint osteoarthritis worse on the left side. Moderate degree of left neural foraminal stenosis. L5-S1: Marked degree of disc space narrowing and disc degeneration. Sacrum: Visualized upper sacrum and SI joints are unremarkable. Visualized retroperitoneal structures are unremarkable. CT/Spine Lumbar without Contrast IMPRESSION: LUMBAR DEGENERATIVE DISC AND FACET DISEASE. Moderate degree of left neural foraminal stenosis at the L4-L5 level. One or more dose reduction techniques were used (e.g., Automated exposure contr ol, adjustment of the mA and/or kV according to patient size, use of iterative reconstruction technique). Reading Location: [facility]
== END | disposition home or self-care (01) ==
LOC: CT 14:43
PROVIDERS: PCP Family Medicine; Referring Provider Anesthesiology Pain Medicine; Visit Provider Anesthesiology Pain Medicine
DX: M48.062 Spinal stenosis, lumbar region with neurogenic claudication (principal)
CPT/HCPCS: 72131

== ENCOUNTER 2024-08-16 14:38 | Outpatient (RCR) | payer MEDICARE, OTHER, SELFPAY ==
[2024-08-11 07:33] VITALS: BMI 28.6
[2024-08-16 14:50] LABS: INR Fingerstick 2.3; Prothrombin Time Fingerstick 24.5 SEC (11.7-14.9)
== END 2024-08-16 18:00 | disposition home or self-care (01) ==
LOC: MTLAB 14:38
PROVIDERS: Family Provider Family Medicine; PCP Family Medicine; Referring Provider Physician Assistant Medical; Visit Provider Physician Assistant Medical
DX: I48.0 Paroxysmal atrial fibrillation (principal); Z79.01 Long term (current) use of anticoagulants; I51.9 Heart disease, unspecified
CPT/HCPCS: 36416; 85610

== ENCOUNTER → 2024-09-18 | Outpatient (CLI) | payer MEDICARE, OTHER, SELFPAY ==
[2024-09-18 17:55] LABS: International Normalized Ratio 1.4; Prothrombin Time (Protime)PT. 17.9 SECONDS (11.7-14.9)
== END | disposition home or self-care (01) ==
LOC: MTLAB 14:53
PROVIDERS: PCP Family Medicine; Referring Provider Clinical Nurse Specialist Adult Health; Visit Provider Clinical Nurse Specialist Adult Health
DX: Z79.01 Long term (current) use of anticoagulants (principal)
CPT/HCPCS: 36415; 85610

== ENCOUNTER 2024-09-26 15:08 | Outpatient (RCR) | payer MEDICARE, OTHER, SELFPAY ==
[2024-09-10 23:12] VITALS: BMI 28.6
[2024-09-26 15:27] LABS: INR Fingerstick 2.2; Prothrombin Time Fingerstick 24.3 SEC (11.7-14.9)
== END 2024-10-10 18:00 | disposition home or self-care (01) ==
LOC: MTLAB 15:08
PROVIDERS: Family Provider Family Medicine; PCP Family Medicine; Referring Provider Physician Assistant Medical; Visit Provider Physician Assistant Medical
DX: I48.0 Paroxysmal atrial fibrillation (principal); Z79.01 Long term (current) use of anticoagulants
CPT/HCPCS: 36416; 85610

== ENCOUNTER 2024-12-04 14:01 | Outpatient (RCR) | payer MEDICARE, OTHER, SELFPAY ==
[2024-10-10 22:28] VITALS: BMI 28.6
[2024-11-16 10:27] LABS: Absolute Lymphocyte Count 1.22 X10^3/uL (0.83-4.51); Absolute Neutrophil Count 2.7 X10^3/uL (2.0-7.7); Basophil# 0.05 X10^3/uL; Eosinophil# 0.17 X10^3/uL; Eosinophils% 3.5 % (0-5); Hematocrit 39.2 % (37-47); Hemoglobin 12.9 g/dL (12.0-15.0); Lymphocyte # 1.22 X10^3/ul (0.83-4.51); Mean Corp Hgb Conc 32.9 g/dL (32-36); Mean Corpuscular Volume 97.3 fL (81-99); Mean Platelet Vol. 9.4 fl (6.2-12.0); Monocyte# 0.71 X10^3/uL; Monocyte% 14.5 % (0-10); NRBC Flagged by Analyzer 0 % (0-5); Neutrophil # 2.72 X10^3/uL (2.7-7.7); Neutrophil % 55.8 % (47-70); Platelet Count 240 K/mm3 (150-450); RBC Distribution Width CV 14.6 % (11.6-14.6); RBC Distribution Width SD 52.3 fl (35.1-43.9); Red Blood Count 4.03 M/mm3 (4.2-5.4); White Blood Count 4.9 K/mm3 (4.4-11.0)
[2024-11-16 10:33] LABS: International Normalized Ratio 3.1; Prothrombin Time (Protime)PT. 32.7 SECONDS (11.7-14.9)
[2024-11-16 10:51] LABS: Hemoglobin A1c 7.2 % (<=5.6)
[2024-11-16 11:10] LABS: Protein, Urine (Random) 9.8 mg/dL (0.0-12.0); Protein:Creat Ratio 266 mg/g CRE (0-200)
[2024-11-16 13:09] LABS: ALB/GLOB Ratio 1.7 RATIO (0.9-2.4); AST(SGOT) 22 U/L (<=31); Alanine Aminotransfer ALT/SGPT 15 U/L (<=34); Albumin, Serum 4.1 g/dL (3.4-4.8); Alkaline Phosphatase 62 U/L (35-104); Anion Gap 12 (5-15); BUN 14 mg/dL (4-19); BUN/Creat Ratio 20.7 RATIO (10-20); Calcium,Total 9.2 mg/dL (7.6-11.0); Carbon Dioxide 26.3 mmol/L (21.0-32.0); Chloride 99 mmol/L (98-108); Cholesterol 122 mg/dL (<=200); Creatinine, Serum 0.68 mg/dL (0.70-1.20); EST Glomerular Filtration Rate 91 (>60); Globulin 2.4 g/dL (2.2-4.2); Glucose 118 mg/dL (70-99); High Density Lipoprotein 55 mg/dL; Low Density Lipoprotein Calc. 42 mg/dL; Magnesium 1.4 mg/dL (1.5-2.2); Potassium 3.8 mmol/L (3.3-5.1); Protein, Total 6.5 g/dL (5.9-8.4); Sodium Level 137 mmol/L (133-145); Total Bilirubin 0.54 mg/dL (0.00-1.30); Triglycerides 125 mg/dL; Very Low Density Lipoprotein 25 mg/dL (5-40); Vitamin D,25 Hydroxy 44.7 ng/mL (30-100); cholesterol:hdl ratio screen 2.22
[2024-12-04 13:31] LABS: Microalbumin:Creatinine Ratio 45.9 mg/g CRE
[2024-12-04 14:29] LABS: INR Fingerstick 1.1; Prothrombin Time Fingerstick 12.9 SEC (11.7-14.9)
== END 2024-12-04 18:00 | disposition home or self-care (01) ==
LOC: MTLAB 14:01
PROVIDERS: Internal Medicine Cardiovascular Disease; Family Provider Family Medicine; PCP Family Medicine; Referring Provider Physician Assistant Medical; Visit Provider Physician Assistant Medical
DX: I48.0 Paroxysmal atrial fibrillation (principal); Z79.01 Long term (current) use of anticoagulants
CPT/HCPCS: 36415; 36416; 80053; 80061; 82043; 82306; 82570; 83036; 83735; 84156; 85025; 85610

== ENCOUNTER 2024-12-26 12:43 | Outpatient (RCR) | payer MEDICARE, OTHER, SELFPAY ==
[2024-12-13 19:17] LABS: Prothrombin Time (Protime)PT. 20.1 SECONDS (11.7-14.9)
[2024-12-26 13:05] LABS: INR Fingerstick 3.2
== END 2025-01-10 18:00 | disposition home or self-care (01) ==
LOC: MTLAB 12:43
PROVIDERS: Family Provider Family Medicine; PCP Family Medicine; Referring Provider Physician Assistant Medical; Visit Provider Physician Assistant Medical
DX: I48.0 Paroxysmal atrial fibrillation (principal); Z79.01 Long term (current) use of anticoagulants
CPT/HCPCS: 36415; 36416; 85610

== ENCOUNTER 2025-01-16 12:50 | Outpatient (RCR) | payer MEDICARE, OTHER, SELFPAY ==
[2025-01-16 15:48] LABS: Prothrombin Time (Protime)PT. 32.2 SECONDS (11.7-14.9)
== END 2025-01-16 18:00 | disposition home or self-care (01) ==
LOC: MTLAB 12:50
PROVIDERS: Family Provider Family Medicine; PCP Family Medicine; Referring Provider Physician Assistant Medical; Visit Provider Physician Assistant Medical
DX: I48.0 Paroxysmal atrial fibrillation (principal); Z79.01 Long term (current) use of anticoagulants
CPT/HCPCS: 36415; 85610

== ENCOUNTER 2025-02-15 13:22 | Outpatient (RCR) | payer MEDICARE, OTHER, SELFPAY ==
[2025-02-15 13:36] LABS: INR Fingerstick 2.5
== END 2025-03-12 18:00 | disposition home or self-care (01) ==
LOC: MTLAB 13:22
PROVIDERS: Family Provider Family Medicine; PCP Family Medicine; Referring Provider Physician Assistant Medical; Visit Provider Physician Assistant Medical
DX: I48.0 Paroxysmal atrial fibrillation (principal); Z79.01 Long term (current) use of anticoagulants
CPT/HCPCS: 36416; 85610

== ENCOUNTER → 2025-03-11 | Outpatient (CLI) | payer MEDICARE, OTHER, SELFPAY ==
[2025-03-11 10:38] LABS: Hematocrit 42.0 % (37-47); Hemoglobin 13.5 g/dL (12.0-15.0); Immature Granulocytes Count 0.010 X10^3/uL (0.0-0.0); Mean Corp Hgb Conc 32.1 g/dL (32-36); Mean Corpuscular Volume 98.8 fL (81-99); Mean Platelet Vol. 9.6 fl (6.2-12.0); NRBC Flagged by Analyzer 0 % (0-5); Platelet Count 250 K/mm3 (150-450); RBC Distribution Width CV 13.6 % (11.6-14.6); RBC Distribution Width SD 49.5 fl (35.1-43.9); Red Blood Count 4.25 M/mm3 (4.2-5.4); White Blood Count 4.7 K/mm3 (4.4-11.0)
[2025-03-11 10:53] LABS: Creatinine, Urine (random) 77.30 mg/dL (28.00-217.00); Microalbumin,Random Urine < 12.0 mg/L (<20 mg/L)
[2025-03-11 11:08] LABS: PTHIN 48 pg/mL (11-61)
[2025-03-11 11:28] LABS: AST(SGOT) 22 U/L (<=31); Alanine Aminotransfer ALT/SGPT 13 U/L (<=34); Albumin, Serum 4.2 g/dL (3.4-4.8); Alkaline Phosphatase 62 U/L (35-104); Anion Gap 12 (5-15); BUN 20 mg/dL (4-19); BUN/Creat Ratio 20.6 RATIO (10-20); Calcium,Total 9.5 mg/dL (7.6-11.0); Carbon Dioxide 26.3 mmol/L (21.0-32.0); Chloride 100 mmol/L (98-108); Cholesterol 132 mg/dL (<=200); Globulin 2.5 g/dL (2.2-4.2); Glucose 135 mg/dL (70-99); Low Density Lipoprotein Calc. 46 mg/dL; Magnesium 1.6 mg/dL (1.5-2.2); Potassium 4.1 mmol/L (3.3-5.1); Triglycerides 155 mg/dL; Very Low Density Lipoprotein 31 mg/dL (5-40); Vitamin D,25 Hydroxy 68.5 ng/mL (30-100); cholesterol:hdl ratio screen 2.41
== END | disposition home or self-care (01) ==
LOC: MTLAB 08:14
PROVIDERS: PCP Family Medicine; Referring Provider Family Medicine; Visit Provider Family Medicine
DX: E11.22 Type 2 diabetes mellitus with diabetic chronic kidney disease (principal); N18.30 Chronic kidney disease, stage 3 unspecified; E83.42 Hypomagnesemia; E55.9 Vitamin D deficiency, unspecified
CPT/HCPCS: 36415; 80053; 80061; 82043; 82306; 82570; 83036; 83735; 83970; 85025

== ENCOUNTER 2025-03-19 15:26 | Outpatient (RCR) | payer MEDICARE, OTHER, SELFPAY ==
[2025-03-19 15:47] LABS: INR Fingerstick 2.6
== END 2025-03-19 18:00 | disposition home or self-care (01) ==
LOC: MTLAB 15:26
PROVIDERS: Family Provider Family Medicine; PCP Family Medicine; Referring Provider Physician Assistant Medical; Visit Provider Physician Assistant Medical
DX: I48.0 Paroxysmal atrial fibrillation (principal); Z79.01 Long term (current) use of anticoagulants
CPT/HCPCS: 36416; 85610

== ENCOUNTER → 2025-04-19 | Outpatient (CLI) | payer MEDICARE, OTHER, SELFPAY ==
[2025-04-19 15:01] LABS: Hematocrit 34.3 % (37-47); Hemoglobin 11.3 g/dL (12.0-15.0); Immature Granulocytes Count 0.020 X10^3/uL (0.0-0.0); Mean Corp Hgb Conc 32.9 g/dL (32-36); Mean Corpuscular Volume 99.1 fL (81-99); Mean Platelet Vol. 9.2 fl (6.2-12.0); NRBC Flagged by Analyzer 0 % (0-5); Platelet Count 319 K/mm3 (150-450); RBC Distribution Width CV 17.2 % (11.6-14.6); RBC Distribution Width SD 62.1 fl (35.1-43.9); Red Blood Count 3.46 M/mm3 (4.2-5.4); White Blood Count 5.3 K/mm3 (4.4-11.0)
[2025-04-19 15:31] LABS: Ferritin 302 ng/mL (22-378); Iron 56 ug/dL (50-170); Iron Binding Capacity,Total 275 ug/dL (250-450); Iron Binding Capacity,Unsat 219 ug/dL (228-428)
[2025-04-19 15:56] LABS: FOLATES,SERUM (FOLIC ACID) 7.73 ng/mL (4.60-34.80)
== END | disposition home or self-care (01) ==
LOC: MFPLAB 11:29
PROVIDERS: PCP Family Medicine; Visit Provider Family Medicine
DX: D64.9 Anemia, unspecified (principal)
CPT/HCPCS: 36415; 82728; 82746; 83540; 83550; 85025

== ENCOUNTER → 2025-05-07 | Outpatient (CLI) | payer MEDICARE, OTHER, SELFPAY ==
--- NOTE | 2025-05-07 07:56 | BD_ITS ---
PROCEDURE: DEXA BONE DENSITY STUDY 05/07/2025 REASON FOR EXAM: F, age 74 y/o . Postmenopausal. TECHNIQUE: Procedure Code: BDDBD Modality: DX Procedure: DEXA BONE DENSITY STUDY COMPARISON: None FINDINGS: BMD and T-SCORES Lumbar spine: 0.888 g/cm2, T-score -1.4 Levels: L1 through L4 Right femoral neck: 0.544 g/cm2, T-score -2.7 Right total hip: 0.587 g/cm2, T-score -2.9 The World Health Organization has defined the following categories based on bone density: Normal bone density: T-score equal to or greater than -1.0 Osteopenia: T-score between -1.0 and -2.5 Osteoporosis: T-score equal to or less than -2.5 FRAX (or Comparable) Fracture Risk Assessment: 10 Year Probability of Fracture: Major Osteoporotic Fracture: 25% Hip Fracture: 8.5% (Note: FRAX is not to be reported in setting of normal range bone density, osteoporosis on DEXA, known history of osteoporosis, prior osteoporotic hip or vertebral fracture, or for any patient undergoing pharmacological treatment for bone loss.) The National Osteoporosis Foundation (NOF) recommends pharmacological treatment for patients with a FRAX 10-year risk of 3% or higher for a hip fracture, or 20% or higher for a major osteoporotic fracture, to prevent osteoporosis and reduce fracture risk. The patient does meet the pharmacological treatment recommendations for prevention of osteoporosis. BD/Dexa Bone Density Study IMPRESSION: OSTEOPOROSIS. Recommend follow-up as clinically warranted. Reading Location: [id number]
== END | disposition home or self-care (01) ==
LOC: OPBD 07:45
PROVIDERS: PCP Family Medicine; Referring Provider Family Medicine; Visit Provider Family Medicine
DX: Z78.0 Asymptomatic menopausal state (principal); S72.002A Fracture of unspecified part of neck of left femur, initial encounter for closed fracture; N95.9 Unspecified menopausal and perimenopausal disorder; X58.XXXA Exposure to other specified factors, initial encounter
CPT/HCPCS: 77080